=== PATIENT | female | born 1960 | race Caucasian/White ===

== ENCOUNTER 2023-02-18 08:31 | Emergency (ER) | payer BC, SELFPAY ==
--- NOTE | ~2023-02-18 | XR_ITS ---
EXAMINATION: XR hand RT min 3V DATE: 02/18/2023 09:07 INDICATION: Right thumb swelling and redness. TECHNIQUE: 3 views of right hand were obtained. COMPARISON: None. FINDINGS: Bone alignment is normal. No fracture. There is mild osteoarthritis of radioscaphoid joint, first carpometacarpal joint, and many of the metacarpophalangeal joints and interphalangeal joints. IMPRESSION: 1. Mild polyarticular osteoarthritis. Reviewed, dictated and finalized at location A.
[2023-02-18 08:44] VITALS: BP 113/70; PULSE 80; RESP 16; TEMP 37; O2SAT 97
--- NOTE | 2023-02-18 08:56 | ED.SKABFB ---
HPI - Skin/Abscess/Foreign Bdy General Chief complaint: Skin/Abscess/Foreign Body Stated complaint: Pt has swelling and pain in right thumb. Time Seen by Provider: 02/18/23 08:48 Source: patient and RN notes reviewed Mode of arrival: ambulatory Limitations: dementia History of Present Illness HPI narrative: 62-year-old female presents with concern for swelling, redness, pain to the 1st digit of her right hand, extending into her hand. She denies any known injury, trauma. She does not know how the symptoms started. She reports it is painful, it hurts to bend her finger. She reports she is able to bend the finger but it hurts to bend it. She denies fever, aches, chills, sweats. Reports she put Prid on it. She reports she noticed some pus draining out of it. MD complaint: other (Redness) Related Data Allergies Allergy/AdvReac Type Severity Reaction Status Date / Time Penicillins Allergy Unknown Rash Verified 02/18/23 08:44 Review of Systems Review of Systems: CONSTITUTIONAL: Denies malaise, chills, sweats, or fever. EYES: Denies redness, or discharge. ENT: Denies rhinorrhea, congestion, swollen lips, swollen tongue CARDIOVASCULAR: Denies chest pain, palpitations, or edema. RESPIRATORY: Denies cough or dyspnea. GASTROINTESTINAL: Denies abdominal pain, nausea, vomiting SKIN: Reports redness, swelling tenderness to the 1st digit of the right hand, extending into the hand, reports purulent drainage. Denies vesicles, bullae, numbness MUSCULOSKELETAL: Denies joint pain or myalgia. NEUROLOGIC: Denies headache. All systems reviewed & are unremarkable except as noted in HPI and below [facility] Past Medical History Medical History (Updated 02/18/23 @ 09:20 by Theresa Nicole NP) Generalized anxiety disorder GERD (gastroesophageal reflux disease) Insomnia, unspecified Left temporomandibular joint disorder, unspecified left TMJ erosions Major depressive disorder, recurrent, moderate Restless leg syndrome Surgical History Surgical History (Updated 11/14/22 @ 08:01 by Keaton Booth MD) H/O total hysterectomy with bilateral salpingo-oophorectomy (BSO) (1998) History of foot surgery right foot tendon repair History of tonsillectomy and adenoidectomy Social History Social History Smoking status: Never smoker Second hand tobacco smoke exposure: No Alcohol intake: never Substance use: never Substance use type: does not use Living arrangements: with family Occupation/Education: unemployed Gender identity (if verbalized by the patient): Female Sexual Orientation (if Verbalized by the Patient): Straight or Heterosexual Spiritual care concerns: No Agree to blood products: Yes Comments At time of signature, agree with nursing past medical, surgical, social and family history. There is no relevant family history pertinent to the presenting complaint Exam Narrative: GENERAL: Well-appearing, well-nourished, and in no acute distress. HEAD: Normocephalic, atraumatic. EYES: PERRLA, conjunctivae clear ENT: Mucous membranes moist. NECK: Supple. No lymphadenopathy CHEST: Clear to auscultation. No respiratory distress. HEART: Regular rate and rhythm. SKIN: Warm, dry. Erythema, induration, tenderness, warmth noted to the 1st digit of the right hand extending into the hand without fluctuation, center of the cellulitis is darker red without any ecchymosis. No vesicles, bullae, necrosis, crepitus noted. NEURO: Alert and oriented x3. PSYCH: Normal mood and affect Course Course Emergency Course: X-ray does not show any subcutaneous emphysema. Patient is not experiencing any malaise, fever, chills. I discussed with this patient the seriousness of her infection and if it should worsen or not improve in the next 24-36 hour she needs to go to the emergency room. 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
== END 2023-02-18 09:27 | disposition home or self-care (01) ==
PROVIDERS: Emergency Provider Nurse Practitioner; PCP Family Medicine Adolescent Medicine
DX: L03.011 Cellulitis of right finger (principal)
CPT/HCPCS: 73130; 99213; G0463

== ENCOUNTER 2023-02-20 08:26 | Emergency (ER) | payer BC, SELFPAY ==
--- NOTE | ~2023-02-20 | XR_ITS ---
EXAMINATION: XR hand RT min 3V DATE: 02/20/2023 09:07 INDICATION: Right thumb infection. Right thumb redness and swelling. TECHNIQUE: 3 views of right hand were obtained. COMPARISON: Right hand radiographs 02/18/2023 FINDINGS: Bone alignment is normal. No fracture. There is mild osteoarthritis of first carpometacarpa l joint, third metacarpophalangeal joint, and some of the interphalangeal joints. IMPRESSION: 1. No evidence of osteomyelitis. 2. Mild polyarticular osteoarthritis. Reviewed, dictated and finalized at location A.
[2023-02-20 08:29] VITALS: BP 150/89; PULSE 75; RESP 16; TEMP 37; O2SAT 99
--- NOTE | 2023-02-20 08:58 | ED.WOUNDLAC ---
HPI - Wound/Laceration General Chief Complaint: Wound/Laceration Stated Complaint: Abscess R thumb Time Seen by Provider: 02/20/23 08:39 History of Present Illness HPI narrative: 62-year-old female presents with wound to right thumb. Patient states the wound showed up 4 days ago. Patient has had drainage from dorsal aspect of thumb. Patient went to urgent care 2 days ago and prescribed Keflex and doxycycline. Patient denies Fevers, nausea, or any other symptoms. Patient denies history of diabetes. Patient is right-hand dominant. Onset (ago): day(s) Extremity Location: Right: hand Associated symptoms: pain and fever Treatments prior to arrival: other (Keflex and doxycycline) Related Data Allergies Allergy/AdvReac Type Severity Reaction Status Date / Time Penicillins Allergy Unknown Rash Verified 02/20/23 08:41 Review of Systems Review of Systems: A 10 system review of systems was completed on the patient and is negative except for what is stated in the HPI. Nursing and ancillary documentation was reviewed. [facility] Past Medical History Medical History (Updated 02/20/23 @ 09:49 by Raj Winter APRN) Generalized anxiety disorder GERD (gastroesophageal reflux disease) Insomnia, unspecified Left temporomandibular joint disorder, unspecified left TMJ erosions Major depressive disorder, recurrent, moderate Restless leg syndrome Surgical History Surgical History (Updated 11/14/22 @ 08:01 by Keaton Booth MD) H/O total hysterectomy with bilateral salpingo-oophorectomy (BSO) (1998) History of foot surgery right foot tendon repair History of tonsillectomy and adenoidectomy Social History Social History Smoking status: Never smoker Second hand tobacco smoke exposure: No Alcohol intake: never Substance use: never Substance use type: does not use Living arrangements: with family Occupation/Education: unemployed Gender identity (if verbalized by the patient): Female Sexual Orientation (if Verbalized by the Patient): Straight or Heterosexual Spiritual care concerns: No Agree to blood products: Yes Exam Narrative: General appearance: Well-developed, well-nourished Skin: Generalized redness to dorsal aspect of right thumb. No active drainage. Tender to touch. Warm to touch Head: Normocephalic, nontraumatic Eyes: Clear conjunctiva ENT: Oropharynx normal, ears normal, nose normal Neck: Supple, nontender Chest and respiratory: Airway patent, no respiratory distress, no accessory muscle use Heart: Regular rate/rhythm Abdomen: Soft, nontender, no organomegaly, quiet bowel sounds Vascular: Normal peripheral pulses, normal capillary refill. Musculoskeletal: Normal range of motion, nontender back Neurologic: Alert and oriented ?3, [employer] is normal as tested, no gross motor deficit Course Course Emergency Course: Lactate and CBC were negative. X-ray did not show any signs of osteomyelitis. Patient given a dose of Ancef. We will continue cephalexin and Doxy. Patient instructed to follow-up PCP in 2 to 3 days. Vital Signs Vital signs: Vital Signs Temperature 37.0 C 02/20/23 08:29 Pulse Rate 75 02/20/23 08:29 Respiratory Rate 16 02/20/23 08:29 Blood Pressure 150/89 H 02/20/23 08:29 Pulse Oximetry 99 02/20/23 08:29 Temperature 37.0 C 02/20/23 08:29 Pulse Rate 75 02/20/23 08:29 Respiratory Rate 16 02/20/23 08:29 Blood Pressure 150/89 H 02/20/23 08:29 Pulse Oximetry 99 02/20/23 08:29 Procedures Abscess I/D upper extremity: Date of Incision: 02/20/23 Time of Incision: 09:37
[2023-02-20 09:02] LABS: Basophils Absolute Auto 0.1 K/mm3 (0.0-0.1); Basophils Percent Auto 0.9 % (0.2-1.2); Eosinophils Absolute Auto 0.3 K/mm3 (0-0.3); Eosinophils Percent Auto 4.3 % (0-4.4); Hematocrit 39.4 % (37.0-47.0); Hemoglobin 12.3 g/dL (12.0-15.0); Immature Granulocyte Absolute 0.02 K/mm3 (0.00-0.031); Immature Granulocyte Percent A 0.3 % (0-0.5); Lymphocytes Absolute Auto 1.37 K/mm3 (0.9-3.2); Lymphocytes Percent Auto 20.4 % (18.3-44.2); Mean Corpuscular HGB Conc 31.2 g/dl (32-36); Mean Corpuscular Hemoglobin 28.9 pg (26-34); Mean Corpuscular Volume 92.7 fl (80-100); Mean Platelet Volume 10.3 fl (7.4-10.4); Monocytes Absolute Auto 0.4 K/mm3 (0.1-0.6); Monocytes Percent Auto 5.4 % (2.6-8.5); Neutrophils Absolute Auto 4.6 K/mm3 (1.3-6.7); Neutrophils Percent Auto 68.7 % (45.5-73.1); Platelet Count Result 247 k/mm3 (150-375); Red Blood Count 4.25 M/mm3 (4.2-5.4); Red Cell Distribution Width 12.8 % (11.5-14.5); White Blood Count 6.7 K/mm3 (4.5-10.0)
[2023-02-20] MEDS: ceFAZolin 1 GM/NS 50 ML 1 GM/50 ML BAG IVPB (09:07)
[2023-02-20 09:10] LABS: Lactic Acid Reflex 1.3 mmol/L (0.7-2.0)
[2023-02-20 09:12] LABS: Alanine Aminotransferase 16 U/L (6-35); Albumin Level 4.3 g/dL (3.5-5.1); Alkaline Phosphatase 87 U/L (38-126); Anion Gap 5 mmol/L (8-16); Aspartate Amino Transferase 21 U/L (14-36); Bilirubin,Total 0.5 mg/dL (0.2-1.3); Blood Urea Nitrogen 7 mg/dL (7-17); Calcium 9.2 mg/dL (8.4-10.2); Carbon Dioxide 39 mmol/L (22-30); Chloride 97 mmol/L (98-107); Estimated CRCL calculation 81 ml/min; Estimated Glomerular Filt Rate > 60; Glucose 126 mg/dL (65-110); Potassium 3.6 mmol/L (3.4-5.0); Sodium 141 mmol/L (137-145)
[2023-02-20] MEDS: KETOROLAC 30 MG/ML VIAL (*BKC) IV PUSH (10:17)
[2023-02-20 10:27] VITALS: BP 129/78; PULSE 87; RESP 18; O2SAT 98
== END 2023-02-20 10:29 | disposition home or self-care (01) ==
PROVIDERS: Emergency Provider Nurse Practitioner Family; PCP Family Medicine Adolescent Medicine
DX: L02.511 Cutaneous abscess of right hand (principal); K21.9 Gastro-esophageal reflux disease without esophagitis; G25.81 Restless legs syndrome; F33.9 Major depressive disorder, recurrent, unspecified; F41.9 Anxiety disorder, unspecified; Z90.710 Acquired absence of both cervix and uterus
CPT/HCPCS: 26010; 36415; 73130; 80053; 83605; 85025; 87040; 87070; 87205; 96365; 96375; 99284; J0690; J1885

== ENCOUNTER 2023-06-18 12:10 | Emergency (ER) | payer BC, SELFPAY ==
--- NOTE | ~2023-06-18 | XR_ITS ---
EXAMINATION: [id number] INDICATION: Left-sided chest pain TECHNIQUE: A frontal view of the chest and 3 views of the left ribs were obtained. COMPARISON: None. FINDINGS: The lungs are free of acute opacities. No pleural effusion or pneumothorax. There is symmet anjali scarring of the lung apices. The cardiomediastinal silhouette is normal. No displaced rib fractur e is identified. IMPRESSION: 1. No acute cardiopulmonary abnormality or evidence of displaced rib fracture. Reviewed, dictated and finalized at location A.
--- NOTE | ~2023-06-18 | XR_ITS ---
EXAMINATION: XR knee LT min 4V DATE: 06/18/2023 12:42 INDICATION: Left knee pain TECHNIQUE: Four views of the left knee were obtained. COMPARISON: None. FINDINGS: Alignment is normal. No fracture or osteochondral lesion. There is mild tricompartmental os teoarthritis characterized by tiny marginal osteophytes. No joint effusion/synovitis. There is mild anterior soft tissue swelling of the knee. IMPRESSION: 1. No acute osseous abnormality. Reviewed, dictated and finalized at location A.
[2023-06-18 12:21] VITALS: BP 142/73; PULSE 100; RESP 16; TEMP 35.5; O2SAT 100
--- NOTE | 2023-06-18 12:47 | ED.FALL ---
HPI - Fall General Chief Complaint: Fall Stated Complaint: Left Side Body/Knee Pain Source: patient, RN notes reviewed and old records reviewed Mode of arrival: ambulatory Limitations: no limitations History of Present Illness HPI Narrative: 63 year old female who presents to [facility] care with complaints of sustaining a fall last evening hitting her left knee with abrasions noted to anterior knee and also pain to the left side of her chest which she hit on stairs especially when she takes a deep breath. Patient reports that she went to work today and they told her she needed to go home and go get checked out because of her discomfort. Patient reports that she has no shortness of breath or any sternal chest pain or palpitations Patient denies any LOC at time of fall or hitting her head when she fell MD complaint: fall Onset (ago): day(s) (yesterday evening) Fall from: standing Loss of consciousness: none Severity scale (1-10): 5 Quality: aching Related Data Allergies Allergy/AdvReac Type Severity Reaction Status Date / Time Penicillins Allergy Unknown Rash Verified 06/18/23 12:16 Review of Systems Review of Systems: CONSTITUTIONAL: Denies fever, chills, or sweats. EYES: Denies visual changes, redness, or discharge. ENT: Denies rhinorrhea, congestion, sore throat, or otalgia. CARDIOVASCULAR: Denies chest pain, palpitations, or edema. RESPIRATORY: Denies cough or dyspnea. GASTROINTESTINAL: Denies abdominal pain, nausea, vomiting, or diarrhea. GENITOURINARY: Denies dysuria or hematuria. SKIN: Denies rash or itching MUSCULOSKELETAL: Chronic back pain, left knee joint pain, or myalgia.left side of chest along ribs discomfort from fall NEUROLOGIC: Denies headache, numbness, or weakness.denies any LOC at time of fall PSYCHIATRIC:positive for history anxiety or depression. All systems reviewed & are unremarkable except as noted in HPI and below [facility] Past Medical History Medical History (Updated 06/19/23 @ 20:10 by Janice Pemberton NP) Chronic back pain Generalized anxiety disorder GERD (gastroesophageal reflux disease) Insomnia, unspecified Left temporomandibular joint disorder, unspecified left TMJ erosions Major depressive disorder, recurrent, moderate Restless leg syndrome Surgical History Surgical History H/O total hysterectomy with bilateral salpingo-oophorectomy (BSO) (1998) History of foot surgery right foot tendon repair History of tonsillectomy and adenoidectomy Social History Social History (Updated 06/19/23 @ 20:00 by Janice Pemberton NP) Smoking status: Never smoker Second hand tobacco smoke exposure: No Alcohol intake: never Substance use: never Substance use type: opiates Last use: on opiates for chronic back pain Lack of Transportation: No Lack of Food: Never True Current Housing: I Have Housing Concerned About Future Housing: No Difficulty Paying Gas/Electric Bills: No Difficulty Paying for Meds: No Currently Unemployed: No Education: Trade/Vocational Certificate Difficulty w/ Childcare or Family Care: No Living arrangements: with family Occupation/Education: unemployed Gender identity (if verbalized by the patient): Female Sexual Orientation (if Verbalized by the Patient): Straight or Heterosexual Spiritual care concerns: No Agree to blood products: Yes Comments At time of signature, agree with nursing past medical, surgical, social and family history. There is no relevant family history pertinent to the presenting complaint Exam Narrative: GENERAL: Well-appearing, well-nourished, and in no acute distress. HEAD: Normocephalic, atraumatic. EYES: PERRLA and EOMI. ENT: Nares clear, no rhinorrhea or epistaxis. Mucous membranes moist.TM's normal throat pink with no swelling NECK: Supple. no lymphadenopathy CHEST: Clear to auscultation. No respiratory distress.SAO2 100% on room air, tenderness to
[2023-06-18 13:25] VITALS: TEMP 37.9
== END 2023-06-18 13:25 | disposition home or self-care (01) ==
PROVIDERS: Emergency Provider Registered Nurse; PCP Family Medicine Adolescent Medicine
DX: S20.212A Contusion of left front wall of thorax, initial encounter (principal); W19.XXXA Unspecified fall, initial encounter; M25.562 Pain in left knee; K21.9 Gastro-esophageal reflux disease without esophagitis; G25.81 Restless legs syndrome; F41.1 Generalized anxiety disorder
CPT/HCPCS: 71101; 73564; 99214; G0463

== ENCOUNTER 2024-09-19 09:26 | Emergency (ER) | payer OTHER, SELFPAY ==
[2024-09-19 09:33] VITALS: BP 128/66; PULSE 97; RESP 16; TEMP 36.1; O2SAT 100
--- NOTE | 2024-09-19 09:45 | ED.SKABFB ---
HPI - Skin/Abscess/Foreign Bdy General Chief complaint: Skin/Abscess/Foreign Body Stated complaint: left forearm bite Time Seen by Provider: 09/19/24 09:45 Source: patient Mode of arrival: ambulatory Limitations: no limitations History of Present Illness HPI narrative: Pushpa is a 64-year-old female patient presenting to the clinic today with complaints of a boil to the left forearm times 2-3 days. She reports that she tried to drain it with a needle yesterday without success. Area is very tender, red, and swollen. Thinks that she may have had an insect bite to the area. Has had some chills without known fever also is reporting some associated nausea Related Data Allergies Allergy/AdvReac Type Severity Reaction Status Date / Time Penicillins Allergy Unknown Rash Verified 04/30/24 07:51 Review of Systems Review of Systems: Pertinent positives per HPI. Patient denies any fever, rash, headache, visual changes, dizziness, cough, runny nose, sore throat, shortness of breath, chest pain, palpitations, vomiting, diarrhea, constipation, abdominal pain, or any urinary issues. [facility], [facility] Past Medical History Medical History (Updated 09/19/24 @ 10:29 by Ty Nunn APRN) Chronic back pain Generalized anxiety disorder GERD (gastroesophageal reflux disease) Insomnia, unspecified Left temporomandibular joint disorder, unspecified left TMJ erosions Major depressive disorder, recurrent, moderate Restless leg syndrome Surgical History Surgical History H/O total hysterectomy with bilateral salpingo-oophorectomy (BSO) (1998) History of foot surgery right foot tendon repair History of tonsillectomy and adenoidectomy Social History Social History Smoking status: Never smoker Second hand tobacco smoke exposure: No Alcohol intake: never Substance use: never Substance use type: opiates Last use: on opiates for chronic back pain Lack of Transportation: No Lack of Food: Never True Current Housing: I Have Housing Concerned About Future Housing: No Difficulty Paying Gas/Electric Bills: No Difficulty Paying for Meds: No Currently Unemployed: No Education: Trade/Vocational Certificate Difficulty w/ Childcare or Family Care: No Living arrangements: with family Occupation/Education: unemployed Gender identity (if verbalized by the patient): Female Sexual Orientation (if Verbalized by the Patient): Straight or Heterosexual Spiritual care concerns: No Agree to blood products: Yes Comments At the time of my signature, I reviewed and agree with the nursing past medical, surgical, social, and family history. There is no relevant family history pertinent to the patient complaint. Exam Narrative: General: Well-developed, well nourished, in no apparent distress Head: Normocephalic, atraumatic. Cardio: Regular rate and rhythm, s1 and s2 normal, no murmur appreciated. Resp: Clear to auscultation bilaterally, no rhonchi, rales, wheezing or rubs. Integumentary: [place], warm, and dry, abscess with fluctuance and localized cellulitis, erythema,and tenderness to the left forearm- abscess approx 3cm x4cm with 2cm area of redness around.Redness is not circumferential. Course Course Emergency Course: Portions of this record may have been created with voice recognition software. Level of Care: Express Care Visit Vital Signs Vital signs: Vital Signs Temperature 36.1 C L 09/19/24 09:33 Pulse Rate 97 09/19/24 09:33 Respiratory Rate 16 09/19/24 09:33 Blood Pressure 128/66 09/19/24 09:33 Pulse Oximetry 100 09/19/24 09:33 Oxygen Delivery Room Air 09/19/24 09:33 Temperature 36.1 C L 09/19/24 09:33 Pulse Rate 97 09/19/24 09:33 Respiratory Rate 16 09/19/24 09:33 Blood Pressure 128/66 09/19/24 09:33 Pulse Oximetry 100 09/19/24 09:33 Oxygen Delivery Room Air 09/19/24 09:33 Vital signs reviewed Procedures Abscess I/D left forearm: Date of Incision: 09/19/24 Side (if applicable): left Local Anesthetic: lidocaine 1% Amount of anesthesia used (mL): 4 Technique: incised with #11 blade Amount of fluid expressed (mL): 5 Irrigation: No Packing used?: iodoform I&D Results: Pus and Blood Abcess I&D Additional Comments: Verbal consent obtained for incision and drainage. Risk and benefits explained and patient voiced understanding. Area was cleansed with betadine. Area was prepped and draped using sterile technique. 27 gauge needle was then used to instill (4) ml of lidocaine without epi into the abscess edges. Patient tolerated fair and anesthesia was appropriate. An 11 blade scalpel was then used to make a 0.5cm incision over the abscess. White bloody exudate expressed from cavity. Quarter-inch iodoform packing was then inserted into the wound bed. Wound culture obtained and sent to lab. Patient tolerated procedure fair. MDM - Skin/Abscess/Foreign Bdy MDM Narrative Medical decision making narrative: At the time of visit patient is resting comfortably on the exam table. Patient appears to be nontoxic. Procedures: Incision and drainage of the left forearm abscess was performed. Wound culture was obtained. Medications: Zofran 4 mg ODT given in the clinic for nausea Plan: I suspect patient has an abscess to the left forearm. Incision and drainage was performed. Wound culture was obtained and sent to the lab. Prescription for clindamycin and Zofran was sent to the pharmacy. Supportive measures were discussed with the patient and they voiced understanding discharge instructions and agrees to treatment plan. Return precautions reviewed Differential Diagnosis Differential diagnosis: Likely abscess of skin or subcutaneous tissue, viral exanthem, dermatophytosis, urticaria, herpes zoster, allergic reaction to drug, cellulitis, eczema, insect bites, impetigo and contact dermatitis Discharge Plan Discharge Clinical Impression: Abscess Cellulitis Qualifiers: Site of cellulitis: extremity Site of cellulitis of extremity: upper extremity Laterality: left Qualified Code(s): L03.114 - Cellulitis of left upper limb Patient Disposition: Home, Self-Care Condition: Stable Instructions: Antibiotic Form, Cellulitis (ED), Abscess (ED), Abscess Incision and Drainage (DC) Additional Instructions: Incision and drainage was performed to the left forearm today. Iodoform packing was placed into the wound to allow for drainage. Wound culture was sent to the lab. Take clindamycin as prescribed Take Zofran as needed for nausea Take a [id number] probiotic daily-2 hours before or 2 hours after 1 of your doses of clindamycin Increase fluids and stay well hydrated May take Tylenol/Motrin as needed for pain Leave bandage on for 24 hours then may remove and apply band aide covering as needed. Keep wound clean and dry Wash area daily with soap and water Watch for signs and symptoms of worsening infection-increase in redness, streaking, swelling, purulent discharge, or increase in pain. Follow up with your PCP in 2 days for a wound check and packing removal Prescriptions: New clindamycin HCl 300 mg capsule 300 mg PO Q8H 10 Days Qty: 30 0RF ondansetron 4 mg tablet,disintegrating 4 mg PO Q6H PRN (Reason: nausea and vomiting) 3 Days Qty: 12 0RF No Action gabapentin 400 mg capsule 800 mg PO TID Qty: 180 5RF mupirocin 2 % ointment 1 applic topical BID Qty: 15 1RF sulfamethoxazole-trimethoprim [Bactrim DS] 800-160 mg tablet 1 tablet PO BID Qty: 20 0RF diphenoxylate-atropine 2.5-0.025 mg tablet See Rx Instructions PO QID PRN (Reason: diarrhea) Qty: 30 0RF Rx Instructions: Take 1-2 tablets 4 times daily if needed for diarrhea PO four times daily PRN; lorazepam 1 mg tablet 1 mg PO TID PRN (Reason: anxiety) Qty: 90 3RF oxycodone-acetaminophen 10-325 mg tablet 1 tablet PO Q4H PRN (Reason: pain) Qty: 150 0RF Rx Instructions: Can take up to 5 daily Follow-up/Referrals: Keaton Booth MD [Primary Care Provider] - Stand Alone Forms: Work/School Release IP Time of Disposition: 10:30 Quality NIHSS Nursing Documentation ED NIHSS nursing documentation: reviewed/agree
[2024-09-19] MEDS: LIDOCAINE HCL 1% LOCAL INJ 2 ML AMPUL 10 ML INFILTRATE (09:50)
[2024-09-19] MEDS: ONDANSETRON HCL ODT 4 MG TABLET SUBLINGUAL (10:01)
== END 2024-09-19 10:45 | disposition home or self-care (01) ==
PROVIDERS: Emergency Provider Nurse Practitioner Family; PCP Family Medicine Adolescent Medicine
DX: L02.414 Cutaneous abscess of left upper limb (principal); B95.62 Methicillin resistant Staphylococcus aureus infection as the cause of diseases classified elsewhere; B96.4 Proteus (mirabilis) (morganii) as the cause of diseases classified elsewhere; K21.9 Gastro-esophageal reflux disease without esophagitis; G25.81 Restless legs syndrome
CPT/HCPCS: 10061; 87070; 87075; 87077; 87147; 87181; 87186; 87205; 99213; A9270; G0463; J2003

== ENCOUNTER 2024-09-27 05:10 | Emergency (ER) | payer OTHER, SELFPAY ==
[2024-09-27] VITALS (8 sets, daily range): BP systolic 104–137; BP diastolic 55–85; PULSE 84–130; RESP 12–26; TEMP 36.4–36.8; O2SAT 97–100
--- NOTE | ~2024-09-27 | XR_ITS ---
EXAMINATION: XR chest 1V portable DATE: 09/27/2024 06:38 INDICATION: Overdose TECHNIQUE: frontal view of the chest was obtained. COMPARISON: Chest radiograph dated 08/31/2018 FINDINGS: The lungs are clear with no focal airspace opacities, pulmonary edema, pleural effusion or pneumothor ax. The cardiomediastinal silhouette is normal. Visualized bones and soft tissues are unremarkable. IMPRESSION: 1. No acute cardiopulmonary disease. Reviewed, dictated and finalized at location A. [employer]IMMER
--- NOTE | ~2024-09-27 | CT_ITS ---
EXAMINATION: CT brain wo con DATE: 09/27/2024 06:32 INDICATION: Altered mental status TECHNIQUE: Computed tomography (CT) of the head was performed without intravenous contrast. Sagittal and coronal reconstructions were performed. The mA was adjusted according to patient size. Iterative reconstruction technique was employed. The dose-length product was 756.67 mGy-cm. COMPARISON: head CT dated 08/31/2018 FINDINGS: No acute intracranial hemorrhage, acute infarction or abnormal extra axial fluid collection. Ventricl es are normal and symmetric. No mass/mass effect. 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 The orbits, paranasal sinuses and mastoid air c ells are normal. IMPRESSION: 1. No acute intracranial process. 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
--- NOTE | 2024-09-27 05:09 | ECG_ITS ---
Test Date: 2024-09-27 05:09:17 Measurements Intervals [place] Rate: 70 P: 70 AR: 124 QRS: 73 QRSD: 106 T: 28 QT: 413 QTc: 446 Interpretive Statements SINUS RHYTHM NONSPECIFIC T-WAVE ABNORMALITY No previous ECG available for comparison Electronically Signed On 09-27-2024 18:40:23 [employer] by Myrna Yanes M.D.
[2024-09-27 05:33] LABS: Basophils Absolute Auto 0.1 K/mm3 (0.0-0.1); Basophils Percent Auto 0.7 % (0.2-1.2); Eosinophils Absolute Auto 0.1 K/mm3 (0-0.3); Eosinophils Percent Auto 0.9 % (0-4.4); Hematocrit 36.5 % (37.0-47.0); Hemoglobin 11.5 g/dL (12.0-15.0); Immature Granulocyte Absolute 0.03 K/mm3 (0.00-0.031); Immature Granulocyte Percent A 0.4 % (0-0.5); Lymphocytes Absolute Auto 2.41 K/mm3 (0.9-3.2); Lymphocytes Percent Auto 28.5 % (18.3-44.2); Mean Corpuscular HGB Conc 31.5 g/dl (32-36); Mean Corpuscular Hemoglobin 27.6 pg (26-34); Mean Corpuscular Volume 87.5 fl (80-100); Mean Platelet Volume 9.8 fl (7.4-10.4); Monocytes Absolute Auto 0.4 K/mm3 (0.1-0.6); Neutrophils Absolute Auto 5.5 K/mm3 (1.3-6.7); Neutrophils Percent Auto 64.5 % (45.5-73.1); Platelet Count Result 287 k/mm3 (150-375); Red Blood Count 4.17 M/mm3 (4.2-5.4); Red Cell Distribution Width 13.9 % (11.5-14.5); White Blood Count 8.5 K/mm3 (4.5-10.0)
--- NOTE | 2024-09-27 05:35 | ED_ITS ---
HPI - Overdose General Chief Complaint: Overdose Stated Complaint: Fentanyl OD History of Present Illness HPI Narrative: 64-year-old female with a past medical history significant for IV fentanyl abuse, presents via EMS for concerns of a possible overdose on fentanyl. Ambulance was called to scene to find 2 patient's overdosing of fentanyl, this patient was more critical and had agonal respirations and was not alert or oriented. She received a total of 6 mg of intranasal Narcan with improvement in mentation and respirations. Patient is presently alert x1 but combative and agitated. Patient is not able to answer questions appropriately. She is combative but redirectable with verbal and physical stimuli. She is breathing on her own on room air. Noted to be tachycardic and tachypneic but no obvious evidence of trauma or injury. She has scarring along her arms consistent with previous IV drug use sites. Related Data Allergies Allergy/AdvReac Type Severity Reaction Status Date / Time Penicillins Allergy Unknown Rash Verified 04/30/24 07:51 Review of Systems 2 Review of Systems: As reviewed above in HPI [facility] Past Medical History Medical History Chronic back pain Left temporomandibular joint disorder, unspecified left TMJ erosions Restless leg syndrome Generalized anxiety disorder Major depressive disorder, recurrent, moderate GERD (gastroesophageal reflux disease) Insomnia, unspecified Surgical History Surgical History History of foot surgery right foot tendon repair History of tonsillectomy and adenoidectomy H/O total hysterectomy with bilateral salpingo-oophorectomy (BSO) (1998) Social History Social History Smoking status: Never smoker Second hand tobacco smoke exposure: No Alcohol intake: never Substance use: never Substance use type: opiates Last use: on opiates for chronic back pain Lack of Transportation: No Lack of Food: Never True Current Housing: I Have Housing Concerned About Future Housing: No Difficulty Paying Gas/Electric Bills: No Difficulty Paying for Meds: No Currently Unemployed: No Education: Trade/Vocational Certificate Difficulty w/ Childcare or Family Care: No Living arrangements: with family Occupation/Education: unemployed Gender identity (if verbalized by the patient): Female Sexual Orientation (if Verbalized by the Patient): Straight or Heterosexual Spiritual care concerns: No Agree to blood products: Yes Exam 2 Narrative: GENERAL: Agitated and combative but redirectable, alert x1 HEAD: [Normocephalic, atraumatic.] EYES: [PERRLA and EOMI.] ENT: Nares clear, no rhinorrhea or epistaxis. Mucous membranes moist. NECK: Supple. CHEST: [Clear to auscultation. No respiratory distress.] HEART: [Regular rate and rhythm]. No murmur heard. [Normal peripheral pulses.] ABDOMEN: [Soft, nondistended], [nontender], [No rigidity or guarding] EXTREMITIES: Full range of motion of both arms and legs, scarring along the antecubital fossa and signs of potential previous drug abuse sites SKIN: Warm, dry, no rash. NEURO: Moves all extremities but only alert x1, agitated, no focal deficits, redirectable. PSYCH: Agitated and combative, but redirectable Course Vital Signs Vital signs: Vital Signs Pulse Rate 127 H 09/27/24 05:28 Temperature 36.8 C 09/27/24 07:47 Pulse Rate 87 09/27/24 08:01 Respiratory Rate 16 09/27/24 08:01 Blood Pressure 111/78 09/27/24 08:01 Pulse Oximetry 100 09/27/24 08:01 Oxygen Delivery Room Air 09/27/24 07:01 Procedures EJ/Peripheral Line Neck L: EJ/Peripheral Line Date: 09/27/24 EJ/Peripheral Line Time: 05:40 Time Out Performed: No Skin Cleansed in Sterile Fashion: Yes Ultrasound Guided: No Size (gauge): 20 IV Secured and Dressing Applied: Yes Patient Tolerated Procedure: well and no complications MDM - Overdose MDM Narrative Medical decision making narrative: 64-year-old female with a past medical history of chronic substance abuse and IV drug abuse. Presents today after a witnessed IV fentanyl overdose accompanied by her daughter was also patient here for same complaint. Patient was found actually breathing, unconscious but did have a palpable pulse and vital signs. Patient received 6 mg of intranasal Narcan with improvement in her respirations and mentation although she is only alert x1 presently she is able to speak in sentences. Re-directable but very agitated and somewhat combative. Is tachycardic and tachypneic but no hypoxia on room air, no fever or blood pressure concerns. No external evidence of trauma. Given the response to naloxone and her history of IV drug abuse a toxicological screening and workup was ordered this time including alcohol, Tylenol, salicylate levels, urine drug screen, urine toxicological panel, CBC, CMP. EKG and chest x-ray were obtained. Additional naloxone ordered as IV push. An EJ had to be attempted on the left side given patient's difficult vascular access and combativeness, successfully established. Workup showed no leukocytosis or worsening anemia from baseline. Head CT shows no acute intracranial findings. Urinalysis without any infection. Urine drug screen positive for cannabinoids but negative for opiates however fentanyl not be detected on or drug screen. Toxicological panels were negative. Electrolytes, renal and hepatic function panel within normal limits. Patient was re-evaluated frequently. Improved mentation back to baseline and has not required any repeat doses of naloxone while here. Patient was re-evaluated multiple times and had returned to baseline mentation and maintained saturating well on room air without any recurrence or relapse of her opiate overdose toxidrome. Patient was observed here for over 2 hours after the last Narcan administration without any relapse of symptoms. Her workup is largely unremarkable and her symptoms have since resolved. She is stable for discharge at this time. Prescribed a naloxone kit and counseled her on IV drug use and cessation which patient verbalized understanding. Differential Diagnosis Differential diagnosis: Likely poisoning by opiate or related narcotic, drug overdose and accidental drug ingestion Medical Records Attestation: I reviewed the patient's medical records. Lab Data Attestation: I reviewed the patient's lab results. 09/27/24 05:24 09/27/24 05:24 Labs: Lab Results 09/27/24 Range/Units 05:24 WBC 8.5 (4.5-10.0) K/mm3 RBC 4.17 L (4.2-5.4) M/mm3 Hgb 11.5 L (12.0-15.0) g/dL Hct 36.5 L (37.0-47.0) % MCV 87.5 (80-100) fl MCH 27.6 (26-34) pg MCHC 31.5 L (32-36) g/dl RDW 13.9 (11.5-14.5) % Plt Count 287 (150-375) k/mm3 MPV 9.8 (7.4-10.4) fl Immature Gran % (Auto) 0.4 (0-0.5) % Neut % (Auto) 64.5 (45.5-73.1) % Lymph % (Auto) 28.5 (18.3-44.2) % [place] % (Auto) 5.0 (2.6-8.5) % Eos % (Auto) 0.9 (0-4.4) % Baso % (Auto) 0.7 (0.2-1.2) % Lymph # (Auto) 2.41 (0.9-3.2) K/mm3 [place] # (Auto) 0.4 (0.1-0.6) K/mm3 Eos # (Auto) 0.1 (0-0.3) K/mm3 Baso # (Auto) 0.1 (0.0-0.1) K/mm3 Abs Immat Gran (auto) 0.03 (0.00-0.031) K/mm3 Absolute Neuts (auto) 5.5 (1.3-6.7) K/mm3 Absolute Nucleated RBC 0.000 (0.0-0.012) K/mm3 Nucleated RBC % 0.0 (0.0-0.2) % Sodium 136 L (137-145) mmol/L Potassium 3.3 L (3.4-5.0) mmol/L Chloride 99 (98-107) mmol/L Carbon Dioxide 30 (22-30) mmol/L Anion Gap 7 (4-12) mmol/L BUN 7 (7-17) mg/dL Creatinine 0.90 (0.7-1.0) mg/dL Estim Creat Clear Calc Not Reportable Estimated GFR > 60 (59 - ) Glucose 182 H (65-110) mg/dL Calcium 8.9 (8.4-10.2) mg/dL Total Bilirubin 0.7 (0.2-1.3) mg/dL AST 49 H (14-36) U/L ALT 19 (6-35) U/L Alkaline Phosphatase 121 (38-126) U/L Total Protein 8.0 (6.3-8.2) g/dL Albumin 4.2 (3.5-5.1) g/dL TSH 7.700 H (0.465-4.680) uIU/mL Urine Color Yellow (Yellow) Urine Appearance Clear (Clear) Urine pH 6.0 (5.0-9.0) Ur Specific [place] 1.013 (1.001-1.035) Urine Protein 1+ H (Negative) mg/dL Urine Glucose (UA) Negative (Negative) mg/dL Urine Ketones Negative (Negative) mg/dL Ur Blood (Man) Non-hemolyzed trace H (Negative) Urine Nitrate Negative (Negative) Urine Bilirubin Negative (Negative) Urine Urobilinogen 0.2 (<2.0) mg/dL Leukocyte Esterase Rfl Negative (Negative) ERICA/UL Urine RBC 0-2 (0-2) /hpf Urine WBC 0-3 (0-3) /hpf Salicylates < 1.0 L (2-20) mg/dL Urine Opiates Screen Negative (Negative) Urine Methadone Screen Negative (Negative) Acetaminophen < 10 L (10-30) ug/mL Ur Barbiturates Screen Negative (Negative) Ur Phencyclidine Scrn Negative (Negative) Ur Amphetamine Screen Negative (Negative) U Benzodiazepines Scrn Negative (Negative) Urine Cocaine Screen Negative (Negative) U Cannabinoids Screen Positive A (Negative) Ethyl Alcohol < 10 (<10) mg/dL Critical Care Time Critical Care Time Critical Care Time: Yes Total Critical Care Time: 35 Discharge Plan Discharge Clinical Impression: Drug overdose, Poisoning by opiate or related narcotic Patient Disposition: Home, Self-Care Condition: Stable Instructions: Antibiotic Form, Adult Overdose (ED) Additional Instructions: Avoid any further drug use. Follow up with substance abuse resources and PCP. Patient Language: Ghanaian Prescriptions: No Action clindamycin HCl 300 mg capsule 300 mg PO Q8H 10 Days Qty: 30 0RF ondansetron 4 mg tablet,disintegrating 4 mg PO Q6H PRN (Reason: nausea and vomiting) 3 Days Qty: 12 0RF levofloxacin 750 mg tablet 750 mg PO DAILY Qty: 10 0RF Rx Instructions: Stop clindamycin, begin Levaquin gabapentin 400 mg capsule 800 mg PO TID Qty: 180 5RF mupirocin 2 % ointment 1 applic topical BID Qty: 15 1RF sulfamethoxazole-trimethoprim [Bactrim DS] 800-160 mg tablet 1 tablet PO BID Qty: 20 0RF diphenoxylate-atropine 2.5-0.025 mg tablet See Rx Instructions PO QID PRN (Reason: diarrhea) Qty: 30 0RF Rx Instructions: Take 1-2 tablets 4 times daily if needed for diarrhea PO four times daily PRN; lorazepam 1 mg tablet 1 mg PO TID PRN (Reason: anxiety) Qty: 90 3RF oxycodone-acetaminophen 10-325 mg tablet 1 tablet PO Q4H PRN (Reason: pain) Qty: 150 0RF Rx Instructions: Can take up to 5 daily Follow-up/Referrals: Keaton Booth MD [Primary Care Provider] - Time of Disposition: 08:15
[2024-09-27 05:39] LABS: Add Urine Microscopic? YES; Appearance Urine Clear (Clear); Bilirubin Urine Negative (Negative); Blood Urine Non-Hemolyzed Trace (Negative); Color Urine Yellow (Yellow); Glucose Urine UA Negative (Negative); Ketones Urine Negative (Negative); Leukocyte Esterase Ur Negative LEU/UL (Negative); Nitrate Urine Negative (Negative); Protein Urine 1+ mg/dL (Negative); Specific Grav Ur 1.013 (1.001-1.035); Urobilinogen Urine 0.2 mg/dL (<2.0)
[2024-09-27 05:42] LABS: Acetaminophen < 10 ug/mL (10-30); Ethanol < 10 mg/dL (<10); Salicylate < 1.0 mg/dL (2-20)
[2024-09-27 05:44] LABS: Alanine Aminotransferase 19 U/L (6-35); Albumin Level 4.2 g/dL (3.5-5.1); Alkaline Phosphatase 121 U/L (38-126); Anion Gap 7 mmol/L (4-12); Aspartate Amino Transferase 49 U/L (14-36); Bilirubin,Total 0.7 mg/dL (0.2-1.3); Blood Urea Nitrogen 7 mg/dL (7-17); Calcium 8.9 mg/dL (8.4-10.2); Carbon Dioxide 30 mmol/L (22-30); Chloride 99 mmol/L (98-107); Estimated Glomerular Filt Rate > 60; Glucose 182 mg/dL (65-110); Potassium 3.3 mmol/L (3.4-5.0); Sodium 136 mmol/L (137-145)
[2024-09-27 05:49] LABS: Amphetamine Screen Urine Negative (Negative); Barbiturate Screen Urine Negative (Negative); Benzodiazepines Screen Urine Negative (Negative); Cannabinoid Screen Urine Positive (Negative); Cocaine Screen Urine Negative (Negative); Methadone Screen Urine Negative (Negative); Opiate Screen Urine Negative (Negative); Phencyclidine Screen Urine Negative (Negative)
[2024-09-27 05:52] LABS: RBC Urine 0-2 /hpf (0-2); WBC Urine 0-3 /hpf (0-3)
[2024-09-27] MEDS: LACTATED RINGERS 1,000 ML 999 ML IV CONT (06:09)
--- NOTE | 2024-09-27 08:50 | PC.NURSE ---
0715: Assumed care of pt. Pt A/O x4. Noted red swollen area to left upper arm & AC. CMS intact
== END 2024-09-27 08:28 | disposition home or self-care (01) ==
PROVIDERS: Emergency Provider Student in an Organized Health Care Education/Training Program; PCP Family Medicine Adolescent Medicine
DX: T40.411A Poisoning by fentanyl or fentanyl analogs, accidental (unintentional), initial encounter (principal); G25.81 Restless legs syndrome; K21.9 Gastro-esophageal reflux disease without esophagitis; Z90.710 Acquired absence of both cervix and uterus; Z90.79 Acquired absence of other genital organ(s); Z90.722 Acquired absence of ovaries, bilateral
CPT/HCPCS: 36415; 70450; 71045; 80053; 80143; 80179; 80307; 81001; 82077; 84443; 85025; 93005; 96361; 96374; 99284; J7120

== ENCOUNTER 2025-04-16 11:18 | Emergency (ER) | payer BC, SELFPAY ==
--- NOTE | ~2025-04-16 | XR_ITS ---
HISTORY: hand injury- 2nd finger wound with cellulitis COMPARISON: None TECHNIQUE: 3 views of the right hand were performed. FINDINGS: No acute fracture is identified. Gullwing deformity is identified within the proximal interphalangeal joint spaces of the second, thir d, fourth and fifth digits. The remaining joint spaces are otherwise preserved. The carpal arcs are intact. Mild radiocarpal joint space narrowing with sclerosis of the distal radius is present. Periarticular osteopenia is identified consistent with osteoarthritis. Soft tissue swelling of the proximal phalanx of the second digit, consistent with patient's history. No bony abnormality identified in this area. No radiopaque foreign body is identified. IMPRESSION: Soft tissue swelling without bony abnormality in the region of clinical concern. Reviewed, dictated and finalized at location A. IMPRESSION: Soft tissue swelling without bony abnormality in the region of clinical concern .
--- NOTE | 2025-04-16 11:22 | ED.UPPEXIN ---
HPI - Extremity Injury (Upper) General Chief Complaint: Skin/Abscess/Foreign Body Stated Complaint: Right Hand Finger Pain Time Seen by Provider: 04/16/25 11:21 Source: patient Mode of arrival: ambulatory Limitations: no limitations History of Present Illness HPI narrative: Pushpa is a 64-year-old female patient presenting to the clinic today with complaints right open wound/injury. She has right hand swelling, redness, and erythema to her right hand. C/o some chills and sweets but no known fever. Hit her hand between the 2d/3rd knuckle on the counter 3 weeks ago. Noticed wound /swelling to the hand 3 days ago. Was in garage and was getting out a cat carrier. When they took cat into vet the found a spider in the cat carrier. Tetanus unk. History IV heroin use. Patient reports she has been clean for 5 months. Patient is not diabetic. History of PCN allergy-rash. Has taken Keflex in the past with no allergic reaction. Related Data Home Medications ?Medication ?Instructions ?Recorded ?Confirmed ?Last Taken ?Type bupropion HCl 150 mg 24 hr tablet, 150 mg PO 04/09/25 04/09/25 Unknown History extended release gabapentin 400 mg capsule 400 mg PO 04/09/25 04/09/25 Unknown History hydroxyzine pamoate 25 mg capsule 25 mg PO 04/09/25 04/09/25 Unknown History prazosin 1 mg capsule 1 mg PO 04/09/25 04/09/25 Unknown History quetiapine 200 mg tablet 200 mg PO 04/09/25 04/09/25 Unknown History sertraline 100 mg tablet 100 mg PO 04/09/25 04/09/25 Unknown History sertraline 50 mg tablet 50 mg PO 04/09/25 04/09/25 Unknown History Allergies Allergy/AdvReac Type Severity Reaction Status Date / Time Penicillins Allergy Unknown Rash Verified 04/16/25 11:35 Review of Systems Review of Systems: Pertinent positives per HPI. Patient denies any fever, headache, visual changes, dizziness, cough, runny nose, sore throat, shortness of breath, chest pain, palpitations, nausea, vomiting, diarrhea, constipation, abdominal pain, or any urinary issues. [facility] Past Medical History Medical History Chronic back pain Left temporomandibular joint disorder, unspecified left TMJ erosions Restless leg syndrome Generalized anxiety disorder Major depressive disorder, recurrent, moderate GERD (gastroesophageal reflux disease) Insomnia, unspecified Surgical History Surgical History History of foot surgery right foot tendon repair History of tonsillectomy and adenoidectomy H/O total hysterectomy with bilateral salpingo-oophorectomy (BSO) (1998) Social History Social History Smoking status: Never smoker Second hand tobacco smoke exposure: No Alcohol intake: never Substance use: never Substance use type: heroin and opiates Last use: on opiates for chronic back pain Lack of Transportation: No Lack of Food: Never True Current Housing: I Have Housing Concerned About Future Housing: No Difficulty Paying Gas/Electric Bills: No Difficulty Paying for Meds: No Currently Unemployed: No Education: Trade/Vocational Certificate Difficulty w/ Childcare or Family Care: No Living arrangements: with family Occupation/Education: unemployed Gender identity (if verbalized by the patient): Female Sexual Orientation (if Verbalized by the Patient): Straight or Heterosexual Spiritual care concerns: No Agree to blood products: Yes Comments At the time of my signature, I reviewed and agree with the nursing past medical, surgical, social, and family history. There is no relevant family history pertinent to the patient complaint. Exam Narrative: General: Well-developed, well nourished, in no apparent distress Head: Normocephalic, atraumatic. Cardio: Regular rate and rhythm, s1 and s2 normal, no murmur appreciated. Resp: Clear to auscultation bilaterally, no rhonchi, rales, wheezing or rubs. Musculoskeletal: No deformity, tender to palpation over the knuckles of the 2nd and 3rd finger, grossly normal range of motion, muscle strength strong and equal, peripheral pulse strong, no edema, no cyanosis, normal gait and station Integumentary: [place], warm, and dry, open wound with clear bloody discharge to the dorsal lateral 2nd finger with swelling, redness, erythema to the right 2nd finger extending into the hand. Course Course Emergency Course: Portions of this record may have been created with voice recognition software. Level of Care: Express Care Visit Vital Signs Vital signs: Vital Signs Temperature 36.6 C 04/16/25 11:32 Pulse Rate 86 04/16/25 11:32 Respiratory Rate 18 04/16/25 11:32 Blood Pressure 121/70 04/16/25 11:32 Pulse Oximetry 99 04/16/25 11:32 Oxygen Delivery Room Air 04/16/25 11:32 Temperature 36.6 C 04/16/25 11:32 Pulse Rate 86 04/16/25 11:32 Respiratory Rate 18 04/16/25 11:32 Blood Pressure 121/70 04/16/25 11:32 Pulse Oximetry 99 04/16/25 11:32 Oxygen Delivery Room Air 04/16/25 11:32 Vital signs reviewed MDM - Extremity Injury (Upper) MDM Narrative Medical decision making narrative: At the time of visit patient is resting comfortably on the exam table. Patient appears to be nontoxic. Medications: Rocephin 1 g IM given in the clinic today, Tdap 0.5 mL IM given in the clinic today Diagnostics: Right hand x-ray was performed and negative in the clinic for any sign of fracture or malalignment. Plan: I suspect patient has an open wound with cellulitis to the right index finger/hand. Wound is not currently draining. Patient denies heroin use/injection to the right hand. States she has been clean for 5 months. I suspect that this may been caused by a spider bite. Prescription for Bactrim and Keflex was sent to the pharmacy Supportive measures were discussed with the patient and they voiced understanding discharge instructions and agrees to treatment plan. Return precautions reviewed Differential Diagnosis Differential diagnosis: Likely fracture of hand and other (Wound infection, soft tissue swelling, cellulitis) Discharge Plan Discharge Clinical Impression: Cellulitis of finger of right hand, Cellulitis of hand, right Patient Disposition: Home Condition: Stable Instructions: Antibiotic Form, Wound Infection (ED), Cellulitis (ED) Additional Instructions: Right hand x-ray was negative for any sign of fracture or malalignment. Does show soft tissue swelling Rocephin 1 g IM given in the clinic today Take cephalexin and Bactrim as prescribed Increase fluids and stay well hydrated Keep right hand elevated May take Tylenol/Motrin as needed for pain Keep wound clean and dry Change dressing at least once daily-may change more often if soiled Watch for signs and symptoms of worsening infection-increase redness, streaking, increase swelling, purulent discharge, or increase in pain. Follow up with your PCP in 2 days for wound check Patient Language: Lao Prescriptions: New sulfamethoxazole-trimethoprim [Bactrim DS] 800-160 mg tablet 1 tablet PO Q12H 10 Days Qty: 20 0RF cephalexin 500 mg tablet 500 mg PO Q8H 10 Days Qty: 30 0RF No Action fluticasone propionate 50 mcg/actuation spray,suspension 1 spray intranasal DAILY Qty: 16 1RF Rx Instructions: administer into each nostril albuterol sulfate [Ventolin HFA] 90 mcg/actuation HFA aerosol inhaler 2 inh inhalation Q4H PRN (Reason: shortness of breath or wheezing) Qty: 6.7 0RF loratadine 10 mg tablet 10 mg PO DAILY Qty: 30 0RF gabapentin 400 mg capsule 400 mg PO bupropion HCl 150 mg tablet extended release 24 hr 150 mg PO hydroxyzine pamoate 25 mg capsule 25 mg PO sertraline 50 mg tablet 50 mg PO quetiapine 200 mg tablet 200 mg PO sertraline 100 mg tablet 100 mg PO prazosin 1 mg capsule 1 mg PO lorazepam 1 mg tablet 1 mg PO TID PRN (Reason: anxiety) Qty: 90 1RF mecobalamin (vitamin B12) [B12 Active] 1,000 mcg tablet,chewable 1,000 mcg PO DAILY Qty: 90 3RF prochlorperazine maleate 5 mg tablet 5 mg PO BID PRN (Reason: nausea and vomiting) Qty: 30 1RF diphenoxylate-atropine 2.5-0.025 mg tablet See Rx Instructions PO QID PRN (Reason: diarrhea) Qty: 30 0RF Rx Instructions: Take 1-2 tablets 4 times daily if needed for diarrhea PO four times daily PRN; oxycodone-acetaminophen 10-325 mg tablet 1 tablet PO Q8H PRN (Reason: pain) 14 Days Qty: 42 0RF Rx Instructions: Can take up to 3 daily Follow-up/Referrals: Keaton Booth MD [Primary Care Provider] - Time of Disposition: 12:11 Quality NIHSS Nursing Documentation ED NIHSS nursing documentation: reviewed/agree
[2025-04-16 11:32] VITALS: BP 121/70; PULSE 86; RESP 18; TEMP 36.6; O2SAT 99
[2025-04-16] MEDS: cefTRIAXone 1 GM, LIDOCAINE 1% LOCAL INJ 2.1 ML IM (11:56)
[2025-04-16] MEDS: TETANUS,DIPHTHERIA,AC PERTUSSIS ADULT (0.5 ML) BOOSTRIX IM (11:58)
== END 2025-04-16 12:18 | disposition home or self-care (01) ==
PROVIDERS: Emergency Provider Nurse Practitioner Family; PCP Family Medicine Adolescent Medicine
DX: L03.011 Cellulitis of right finger (principal); L03.113 Cellulitis of right upper limb; Z23 Encounter for immunization; K21.9 Gastro-esophageal reflux disease without esophagitis; G25.81 Restless legs syndrome; F41.9 Anxiety disorder, unspecified; F33.9 Major depressive disorder, recurrent, unspecified
CPT/HCPCS: 73130; 90471; 90715; 99213; G0463; J0696; J2003

== ENCOUNTER 2025-06-02 11:28 | Outpatient (CLI) | payer BC, SELFPAY ==
--- NOTE | ~2025-06-02 | XR_ITS ---
EXAM/ PROCEDURE: XR lumbar spine 6V w bending - 06/02/2025 11:50 CDT HISTORY: 65 years old Female with M47.816 - Spondylosis without myelopathy or radiculopathy... COMPARISON: None available TECHNIQUE: Three view(s) FINDINGS/ IMPRESSION: There are no fractures or dislocations.Intervertebral disc space narrowing at L4-5 and L5-S1. Multi l evel osteophyte formation. Reviewed, dictated and finalized at location A.
--- NOTE | ~2025-06-02 | XR_ITS ---
EXAM/ PROCEDURE: XR sacrum coccyx min 2V - 06/02/2025 11:50 CDT HISTORY: 65 years old Female with M46.1 - Sacroiliitis, not elsewhere classified COMPARISON: None available TECHNIQUE: Three view(s) FINDINGS/ IMPRESSION: There are no fractures or dislocations.Joint space narrowing, subchondral sclerosis, subchondral cyst formation and osteophyte formation, compatible with [id number] osteoarthritis. Reviewed, dictated and finalized at location A.
--- OUTSIDE RECORDS SUMMARY | 2025-06-02 12:59 | XMS_ITS | Encounter Summary ---
Author Organization [facility] Healthcare Address [address] [place] [address] Care Team Providers Care Performance Tester Name Role Phone Keaton Booth MD Primary Care Prov ider Encounter Details Date Type Department Care Team (Late st Contact Info) Description 1960 Orders Only [facility] [place] Health Information Management [address] [place] [id number] Scanning, Provider Social History Tobacco Use Types Packs/Day Years Used Date Smoking Tobacco: Never Assessed Comments Unknown Sex and Gender Information Value Date Recorded Sex Assigned at Not on file 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 Gender Identity Not on file Sexual Orientation Not on file documented as of this encounter Plan of Treatment Not on file documented as of this encounter Procedures Procedure Name Priority Date/Time Associated Diagnosis Comments SCAN - RADIOLOGY/IMAGING 1960 documented in this encounter Results * SCAN - RADIOLOGY/IMAGING (1960) Anatomical Region Laterality Modality Other us Provider Scanning Final Result documented in this encounter Visit Diagnoses Not on filedocumented in this encounter Care Teams Performance Tester Relationship Specialty Start Date End Date Keaton Booth MD [address] [place] [address] PCP - General 08/31/17 documented as of this encounter
--- OUTSIDE RECORDS SUMMARY | 2025-06-02 12:59 | XMS_ITS | Patient Health Record ---
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 Apprentice Photoengraving Name Role Phone Ann Flores Primary Care Provider Hebert Shaw Unavailable [phone] Martinez Rapp Unavailable [phone] Laure Sarmiento Unavailable [phone] Nyasia Steele Unavailable Wendy Hartman Unavailable [phone] Beronica Perkins Unavailable [phone] Pari Souza Unavailable [phone] Allergies Allergen (clinical drug ingredient) Drug/Non Drug Allergy documented on EMR Reaction Allergy Type Onset Date Status Penicillin anaphylaxis Drug Allergy Acti ve Results Component Value Reference Range Notes 12 Panel Urine Drug Screen Reviewed date:12/12/2024 09:05:47 AM Interpretation: Performing Lab: Notes/Report: THC POS MICHELA neg MOP (OPI) neg AMP neg MET neg BAR neg BZO POS MDMA neg MTD neg OXY neg PCP neg BUP neg 12 Panel Urine Drug Screen Reviewed date:12/18/2024 02:47:13 PM Interpretation: Performing Lab: Notes/Report: THC POS MICHELA neg MOP (OPI) neg AMP neg MET neg BAR neg BZO neg MDMA neg MTD neg OXY neg PCP neg BUP POS 12 Panel Urine Drug Screen Reviewed date:01/01/2025 01:53:49 PM Interpretation: Performing Lab: Notes/Report: THC POS MICHELA neg MOP (OPI) neg AMP neg MET neg BAR neg BZO POS MDMA neg MTD neg OXY neg PCP neg BUP POS 12 Panel Urine Drug Screen Reviewed date:03/04/2025 01:12:42 PM Interpretation: Performing Lab: Notes/Report: THC POS MICHELA neg MOP (OPI) neg AMP neg MET neg BAR neg BZO neg MDMA neg MTD neg OXY neg PCP neg BUP POS 12 Panel Urine Drug Screen Reviewed date:02/19/2025 10:09:19 AM Interpretation: Performing Lab: Notes/Report: THC POS MICHELA neg MOP (OPI) neg AMP neg MET neg BAR neg BZO neg MDMA neg MTD neg OXY neg PCP neg BUP POS Comprehensive Drug Analysis, Urine Reviewed date:03/03/2025 08:35:18 AM Interpretation: Performing Lab:[facility], [address] [place] [address], Phone - [phone], Director - Rolando Notes/Report: ToxAssure, ToxAssure FLEX or MAT drug testing: -Technical component - Data analysis performed at [address], [address]. [phone]. Compliance Officer Tracey Sellers MD Summary Report (Summary) FINAL COMPREHENSIVE DRUG ANALYSIS,UR Test Result Flag Units Drug Present Carboxy-THC 165 ng/mg creat Carboxy-THC is a metabolite of tetrahydrocannabinol (THC). Source of THC is most commonly herbal marijuana or marijuana-based products, but THC is also present in a scheduled prescription medication. Trace amounts of THC can be present in hemp and cannabidiol (CBD) products. This test is not intended to distinguish between tudlp-3-asprlzrxyhsausahbrkz, the predominant form of THC in most herbal or marijuana-based products, and hjgvp-6-yzthcccyywvjthtcapdn. Buprenorphine 255 ng/mg creat Norbuprenorphine 353 ng/mg creat Source of buprenorphine is a scheduled prescription medication. Norbuprenorphine is an expected metabolite of buprenorphine. Cyclobenzaprine PRESENT Desmethylcyclobenzaprine PRESENT Desmethylcyclobenzaprine is an expected metabolite of cyclobenzaprine. Sertraline PRESENT Desmethylsertraline PRESENT Desmethylsertraline is an expected metabolite of sertraline. Quetiapine PRESENT Ibuprofen PRESENT Hydroxyzine PRESENT Test Result Flag Units Ref Range Creatinine 132 mg/dL >=20 For clinical consultation, please call . PDF . 12 Panel Urine Drug Screen Reviewed date:01/16/2025 03:14:36 PM Interpretation: Performing Lab: Notes/Report: THC POS MICHELA neg MOP (OPI) neg AMP neg MET neg BAR neg BZO neg MDMA neg MTD neg OXY neg PCP neg BUP POS PDF Report Reviewed date:03/03/2025 08:35:18 AM Interpretation: Performing Lab:[facility], [address] [facility], Phone - [phone], Director - Rolando Notes/Report: ToxAssure, ToxAssure FLEX or MAT drug testing: -Technical component - Data analysis performed at [facility], [address] [place] [address], [phone]. [phone]. Compliance Officer Tracey Sellers MD PDF Report1 [facility] Reason For Referral Reason OUD, high PHQ, refer red to psych, as well. Diagnosis 1 Opioid use disorder (F11.99) Referral Organization [facility] Referring Provider First Name Martinez Referring Provider Last Name Dionte Referring Provider [facility] jocelynn Referred Provider [facility] Clinical Notes Kinga Moses 12/12/2024 02:58:53 PM >HN called the client and left a VM regarding setting up therapy. HN waiting on the client to call back.Josué Kristina L 12/20/2024 10:43:42 AM >HN called the client to follow up to see when her therapy appointment is scheduled. HN left a message for client to update the HN on when her therapy appointment is.Josué Kristina L 12/26/2024 11:01:12 AM >HN looked in TIER to see if the client had an appt scheduled for therapy. No appt showing. HN left a VM asking the client to call back with information about her scheduling her appt for therapy, can close out on 01-06-25 referral letter sent to client on 12-26-24. 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 Diagnosis 1 Opioid use disorder (F11.99) Diagnosis 2 MDD (major depressiv e disorder) (F32.9) Diagnosis 3 MIKE (generalized anx iety disorder) (F41.1) Referral Organization [facility] Referring Provider First Name Ann Referring Provider Last Name Sandra [facility] Referred Provider [facility] General Notes Ann Flores 01:55:17 PM >Client doesn't have reliable transportation, but is interested in having telehealth for therapy, and having a peer finish specialist that she can talk to on phone or who can come to see her at her home if possible. Thanks. Clinical Notes Pari Souza 10:29:24 AM >Sent message to hotel service supervisor of ACT programming to see if peer recovery coaches can go to client homes for visits/treatment plan as primary method of contact. Will await response.Harley Michelle R 12/31/2024 11:46:34 AM >Call to client to discuss referral and availability of peer recovery coaches/therapy. No answer, LVM requesting call back.Harley Michelle R 01/07/2025 10:49:23 AM >Call to client, no answer, LVM. Client calls back quickly and this clinician describes nature of call. Client states she has all the information regarding the therapy program at [place] and peer recovery coaches and is thinking about enrolling at this time. Please see other note for more information. Referral Priority Routine Reason Peer Recovery Specia list - Opioid Use Disorder Diagnosis 1 Opioid use disorder (F11.99) Referral Organization [facility] Referring Provider First Name Ann Referring Provider Last Name Soniamo Referring Provider Speciality Psychiatry Referred Provider [facility] Clinical Notes Kinga Moses 05/22/2025 10:31:04 AM >email sent to the recovery team. HN asking if the recovery team could reach out to the client to assist with getting the client enrolled with a coach driver. Referral Priority Routine Reason [facility] Diagnosis 1 MDD (major depressiv e disorder) (F32.9) Diagnosis 2 MIKE (generalized anx iety disorder) (F41.1) Referral Organization [facility] Referring Provider First Name Ann Referring Provider Last Name Sandra Referring Provider Speciality Psychiatry Referred Provider [facility] Clinical Notes Kinga Moses 05/22/2025 10:40:01 AM >HN called the client to inform her about the email asking for a coach driver. HN also working on the referral for therapy. HN called the client at 10:40, HN provided the client with the number to [place] to complete the intake for therapy and to get their first patient appointment set up. Client stated she was going to call on 05-22-25 to complete the enrollment process. HN also explained the same directions to Anni Phillips Referral Priority Routine Medications Medication SIG (Take, Route, Frequency, Duration) Notes Start Date End Date Status Sertraline HCl 100 MG 2 tablets (200 mg) Orally Once a day; Duration: 30 days Active hydrOXYzine Pamoate 25 MG 1 - 2 capsules up to 3 times a day as needed for anxiety (max 100 mg/day) Orally Once a day; Duration: 30 days Active QUEtiapine Fumarate 200 MG 1 tablet Orally Once a day; Duration: 30 days As needed Active oxyCODONE-Acetaminop hen 10-325 MG 1 tablet as needed Orally 4 times a day prescribed by non-[place] provider Active LORazepam 1 MG 1 tablet at bedtime as needed Orally 3 times a day As needed prescribed by non-[place] provider Active Prazosin HCl 1 MG 1 capsule at bedtime Orally Once a day; Duration: 30 days Active buPROPion HCl ER (XL) 150 MG 1 tablet in the morning Orally Once a day; Duration: 30 days Active Social History Tobacco Use: Social History Observation Description Date Details (start date - stop date) Never Smoker NA - NA Sex Assigned At : Social History Observation Description Sex Assigned At Female PRAPARE Question Answer Notes Date Completed/Updated: 12/12/2024 What is your current housing situation? I do not have housing (staying with others, in a hotel, in a prison, living outside on the street, on a beach, or in a park) Are you worried about losing your housing? Yes What is the highest level of school that you have finished? More than high school In the past year, have you o r any family members you live with been unable to get any of the following when it was really needed? Check all that apply Food Has lack of transportation k ept you from medical appointments, meetings, work or from getting things needed for daily living? No How often do you see or talk to people that you care about and feel close to? (For example: talking to friends on the phone, visiting friends or family, going to adventism or club meetings) Less than once a week How stressed are you? Stress is when someone feels tense, nervous, anxious, or can\t sleep at night because their mind is troubled Very much In the past year have you sp ent more than 2 nights in a row in a [place], alf, fci center, or juvenile correctional facility? Yes Do you feel physically and e motionally safe where you currently live? Unsure In the past year, have you b een afraid of your partner or ex-partner? No PRAPARE Score: 8 Tobacco Control (Standard) Question Answer Notes Tobacco use: Nonsmoker Section Notes: - - - - - - - - - - - ADDITIONAL SOCIAL HISTORY 12/16/2024: - - - - - - - - - - - PERSONAL BACKGROUND HISTORY Describe childhood- Mom and Dad fought all of the time, grew up with 6 siblings. Abuse/Trauma- None Education- Some college, worked on [employer] degree 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[email or web address], [employer], 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 Legal History- Hx of drug-related charges Spiritual Affiliation- Roman Catholic Other Social History - Currently living with ex- and 2 adult daughters (in their early 40s). Was living with in a small, efficiency apartment with daughters and they were all abusing fentanyl. Both daughters have health complications related to drug use, one more serious than the other (malnutrition, infected skin wounds, leg wounds). - - - - - - - - - - - ALCOHOL/DRUG HISTORY Caffeine - None Alcohol - None Marijuana - Occasional use Cocaine - Remote Hx Heroin - Heroin prior to fentanyl Fentanyl - Used last 2 years, last use beginning of November 2024 Meth - None Other Illicit Drugs - None OTC/Rx Drugs - None - - - - - - - - - - - PAST PSYCHIATRIC HISTORY Past Psychiatrist or Therapist - Not in a long time Psychiatric Diagnosis(es) - Depression, anxiety Past Psychiatric Medications - Lorazepam-took 3 at once Inpt Psych Hospitalizations - [facility] November 2024 for benzo abuse for 8 days Suicidal Ideation Hx - None Suicide Attempt(s) - None Homicidal Ideation - None Self-Injury/High Risk Bx - None - - - - - - - - - - - FAMILY PSYCHIATRIC HISTORY Suicides or Attempts - None Alcohol/Drug Use - Both daughters - opioid use disorder Disorders - None that she is aware - - - - - - - - - - - - - - - - - - - - - - ADDITIONAL SOCIAL HISTORY 12/16/2024: - - - - - - - - - - - PERSONAL BACKGROUND HISTORY Describe childhood- Mom and Dad fought all of the time, grew up with 6 siblings. Abuse/Trauma- None Education- Some college, worked on [employer] degree 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[employer], 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 Legal History- Hx of drug-related charges Spiritual Affiliation- Roman Catholic Other Social History - Currently living with ex- and 2 adult daughters (in their early 40s). Was living with in a small, efficiency apartment with daughters and they were all abusing fentanyl. Both daughters have health complications related to drug use, one more serious than the other (malnutrition, infected skin wounds, leg wounds). - - - - - - - - - - - ALCOHOL/DRUG HISTORY Caffeine - None Alcohol - None Marijuana - Occasional use Cocaine - Remote Hx Heroin - Heroin prior to fentanyl Fentanyl - Used last 2 years, last use beginning of November 2024 Meth - None Other Illicit Drugs - None OTC/Rx Drugs - None - - - - - - - - - - - PAST PSYCHIATRIC HISTORY Past Psychiatrist or Therapist - Not in a long time Psychiatric Diagnosis(es) - Depression, anxiety Past Psychiatric Medications - Lorazepam-took 3 at once In Psych Hospitalizations - [facility] November 2024 for benzo abuse for 8 days Suicidal Ideation Hx - None Suicide Attempt(s) - None Homicidal Ideation - None Self-Injury/High Risk Bx - None - - - - - - - - - - - FAMILY PSYCHIATRIC HISTORY Suicides or Attempts - None Alcohol/Drug Use - Both daughters - opioid use disorder Disorders - None that she is aware - - - - - - - - - - - - - - - - - - - - - - ADDITIONAL SOCIAL HISTORY 12/16/2024: - - - - - - - - - - - PERSONAL BACKGROUND HISTORY Describe childhood- Mom and Dad fought all of the time, grew up with 6 siblings. 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 Was living with in a small, efficiency apartment with daughters and they were all abusing fentanyl. Both daughters have health complications related to drug use, one more serious than the other (malnutrition, infected skin wounds, leg wounds). - - - - - - - - - - - ALCOHOL/DRUG HISTORY Caffeine - None Alcohol - None Marijuana - Occasional use Cocaine - Remote Hx Heroin - Heroin prior to fentanyl Fentanyl - Used last 2 years, last use beginning of November 2024 Meth - None Other Illicit Drugs - None OTC/Rx Drugs - None - - - - - - - - - - - PAST PSYCHIATRIC HISTORY Past Psychiatrist or Therapist - Not in a long time Psychiatric Diagnosis(es) - Depression, anxiety Past Psychiatric Medications - Lorazepam-took 3 at once Inpt Psych Hospitalizations - [facility] November 2024 for benzo abuse for 8 days Suicidal Ideation Hx - None Suicide Attempt(s) - None Homicidal Ideation - None Self-Injury/High Risk Bx - None - - - - - - - - - - - FAMILY PSYCHIATRIC HISTORY Suicides or Attempts - None Alcohol/Drug Use - Both daughters - opioid use disorder Disorders - None that she is aware - - - - - - - - - - - - - - - - - - - - - - ADDITIONAL SOCIAL HISTORY 12/16/2024: - - - - - - - - - - - PERSONAL BACKGROUND HISTORY Describe childhood- Mom and Dad fought all of the time, grew up with 6 siblings. Abuse/Trauma- None Education- Some college, worked on [employer] degree 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[employer], 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 Legal History- Hx of drug-related charges Spiritual Affiliation- Roman Catholic Other Social History - Currently living with ex- and 2 adult daughters (in their early 40s). Was living with in a small, efficiency apartment with daughters and they were all abusing fentanyl. Both daughters have health complications related to drug use, one more serious than the other (malnutrition, infected skin wounds, leg wounds). - - - - - - - - - - - ALCOHOL/DRUG HISTORY Caffeine - None Alcohol - None Marijuana - Occasional use Cocaine - Remote Hx Heroin - Heroin prior to fentanyl Fentanyl - Used last 2 years, last use beginning of November 2024 Meth - None Other Illicit Drugs - None OTC/Rx Drugs - None - - - - - - - - - - - PAST PSYCHIATRIC HISTORY Past Psychiatrist or Therapist - Not in a long time Psychiatric Diagnosis(es) - Depression, anxiety Past Psychiatric Medications - Lorazepam-took 3 at once Inpt Psych Hospitalizations - [facility] November 2024 for benzo abuse for 8 days Suicidal Ideation Hx - None Suicide Attempt(s) - None Homicidal Ideation - None Self-Injury/High Risk Bx - None - - - - - - - - - - - FAMILY PSYCHIATRIC HISTORY Suicides or Attempts - None Alcohol/Drug Use - Both daughters - opioid use disorder Disorders - None that she is aware - - - - - - - - - - - - - - - - - - - - - - ADDITIONAL SOCIAL HISTORY 12/16/2024: - - - - - - - - - - - PERSONAL BACKGROUND HISTORY Describe childhood- Mom and Dad fought all of the time, grew up with 6 siblings. Abuse/Trauma- None Education- Some college, worked on [employer] degree 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[employer], 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 Legal History- Hx of drug-related charges Spiritual Affiliation- Roman Catholic Other Social History - Currently living with ex- and 2 adult daughters (in their early 40s). Was living with in a small, efficiency apartment with daughters and they were all abusing fentanyl. Both daughters have health complications related to drug use, one more serious than the other (malnutrition, infected skin wounds, leg wounds). - - - - - - - - - - - ALCOHOL/DRUG HISTORY Caffeine - None Alcohol - None Marijuana - Occasional use Cocaine - Remote Hx Heroin - Heroin prior to fentanyl Fentanyl - Used last 2 years, last use beginning of November 2024 Meth - None Other Illicit Drugs - None OTC/Rx Drugs - None - - - - - - - - - - - PAST PSYCHIATRIC HISTORY Past Psychiatrist or Therapist - Not in a long time Psychiatric Diagnosis(es) - Depression, anxiety Past Psychiatric Medications - Lorazepam-took 3 at once Inpt Psych Hospitalizations - [facility] November 2024 for benzo abuse for 8 days Suicidal Ideation Hx - None Suicide Attempt(s) - None Homicidal Ideation - None Self-Injury/High Risk Bx - None - - - - - - - - - - - FAMILY PSYCHIATRIC HISTORY Suicides or Attempts - None Alcohol/Drug Use - Both daughters - opioid use disorder Disorders - None that she is aware - - - - - - - - - - - - - - - - - - - - - - ADDITIONAL SOCIAL HISTORY 12/16/2024: - - - - - - - - - - - PERSONAL BACKGROUND HISTORY Describe childhood- Mom and Dad fought all of the time, grew up with 6 siblings. 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 Was living with in a small, efficiency apartment with daughters and they were all abusing fentanyl. Both daughters have health complications related to drug use, one more serious than the other (malnutrition, infected skin wounds, leg wounds). - - - - - - - - - - - ALCOHOL/DRUG HISTORY Caffeine - None Alcohol - None Marijuana - Occasional use Cocaine - Remote Hx Heroin - Heroin prior to fentanyl Fentanyl - Used last 2 years, last use beginning of November 2024 Meth - None Other Illicit Drugs - None OTC/Rx Drugs - None - - - - - - - - - - - PAST PSYCHIATRIC HISTORY Past Psychiatrist or Therapist - Not in a long time Psychiatric Diagnosis(es) - Depression, anxiety Past Psychiatric Medications - Lorazepam-took 3 at once In Psych Hospitalizations - [facility] November 2024 for benzo abuse for 8 days Suicidal Ideation Hx - None Suicide Attempt(s) - None Homicidal Ideation - None Self-Injury/High Risk Bx - None - - - - - - - - - - - FAMILY PSYCHIATRIC HISTORY Suicides or Attempts - None Alcohol/Drug Use - Both daughters - opioid use disorder Disorders - None that she is aware - - - - - - - - - - - - - - - - - - - - - - ADDITIONAL SOCIAL HISTORY 12/16/2024: - - - - - - - - - - - PERSONAL BACKGROUND HISTORY Describe childhood- Mom and Dad fought all of the time, grew up with 6 siblings. 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 Was living with in a small, efficiency apartment with daughters and they were all abusing fentanyl. Both daughters have health complications related to drug use, one more serious than the other (malnutrition, infected skin wounds, leg wounds). - - - - - - - - - - - ALCOHOL/DRUG HISTORY Caffeine - None Alcohol - None Marijuana - Occasional use Cocaine - Remote Hx Heroin - Heroin prior to fentanyl Fentanyl - Used last 2 years, last use beginning of November 2024 Meth - None Other Illicit Drugs - None OTC/Rx Drugs - None - - - - - - - - - - - PAST PSYCHIATRIC HISTORY Past Psychiatrist or Therapist - Not in a long time Psychiatric Diagnosis(es) - Depression, anxiety Past Psychiatric Medications - Lorazepam-took 3 at once Inpt Psych Hospitalizations - [facility] November 2024 for benzo abuse for 8 days Suicidal Ideation Hx - None Suicide Attempt(s) - None Homicidal Ideation - None Self-Injury/High Risk Bx - None - - - - - - - - - - - FAMILY PSYCHIATRIC HISTORY Suicides or Attempts - None Alcohol/Drug Use - Both daughters - opioid use disorder Disorders - None that she is aware - - - - - - - - - - - - - - - - - - - - - - ADDITIONAL SOCIAL HISTORY 12/16/2024: - - - - - - - - - - - PERSONAL BACKGROUND HISTORY Describe childhood- Mom and Dad fought all of the time, grew up with 6 siblings. 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 Was living with in a small, efficiency apartment with daughters and they were all abusing fentanyl. Both daughters have health complications related to drug use, one more serious than the other (malnutrition, infected skin wounds, leg wounds). - - - - - - - - - - - ALCOHOL/DRUG HISTORY Caffeine - None Alcohol - None Marijuana - Occasional use Cocaine - Remote Hx Heroin - Heroin prior to fentanyl Fentanyl - Used last 2 years, last use beginning of November 2024 Meth - None Other Illicit Drugs - None OTC/Rx Drugs - None - - - - - - - - - - - PAST PSYCHIATRIC HISTORY Past Psychiatrist or Therapist - Not in a long time Psychiatric Diagnosis(es) - Depression, anxiety Past Psychiatric Medications - Lorazepam-took 3 at once Inpt Psych Hospitalizations - [facility] November 2024 for benzo abuse for 8 days Suicidal Ideation Hx - None Suicide Attempt(s) - None Homicidal Ideation - None Self-Injury/High Risk Bx - None - - - - - - - - - - - FAMILY PSYCHIATRIC HISTORY Suicides or Attempts - None Alcohol/Drug Use - Both daughters - opioid use disorder Disorders - None that she is aware - - - - - - - - - - - - - - - - - - - - - - ADDITIONAL SOCIAL HISTORY 12/16/2024: - - - - - - - - - - - PERSONAL BACKGROUND HISTORY Describe childhood- Mom and Dad fought all of the time, grew up with 6 siblings. 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 Was living with in a small, efficiency apartment with daughters and they were all abusing fentanyl. Both daughters have health complications related to drug use, one more serious than the other (malnutrition, infected skin wounds, leg wounds). - - - - - - - - - - - ALCOHOL/DRUG HISTORY Caffeine - None Alcohol - None Marijuana - Occasional use Cocaine - Remote Hx Heroin - Heroin prior to fentanyl Fentanyl - Used last 2 years, last use beginning of November 2024 Meth - None Other Illicit Drugs - None OTC/Rx Drugs - None - - - - - - - - - - - PAST PSYCHIATRIC HISTORY Past Psychiatrist or Therapist - Not in a long time Psychiatric Diagnosis(es) - Depression, anxiety Past Psychiatric Medications - Lorazepam-took 3 at once Inpt Psych Hospitalizations - [facility] November 2024 for benzo abuse for 8 days Suicidal Ideation Hx - None Suicide Attempt(s) - None Homicidal Ideation - None Self-Injury/High Risk Bx - None - - - - - - - - - - - FAMILY PSYCHIATRIC HISTORY Suicides or Attempts - None Alcohol/Drug Use - Both daughters - opioid use disorder Disorders - None that she is aware - - - - - - - - - - - - - - - - - - - - - - ADDITIONAL SOCIAL HISTORY 12/16/2024: - - - - - - - - - - - PERSONAL BACKGROUND HISTORY Describe childhood- Mom and Dad fought all of the time, grew up with 6 siblings. 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 Was living with in a small, efficiency apartment with daughters and they were all abusing fentanyl. Both daughters have health complications related to drug use, one more serious than the other (malnutrition, infected skin wounds, leg wounds). - - - - - - - - - - - ALCOHOL/DRUG HISTORY Caffeine - None Alcohol - None Marijuana - Occasional use Cocaine - Remote Hx Heroin - Heroin prior to fentanyl Fentanyl - Used last 2 years, last use beginning of November 2024 Meth - None Other Illicit Drugs - None OTC/Rx Drugs - None - - - - - - - - - - - PAST PSYCHIATRIC HISTORY Past Psychiatrist or Therapist - Not in a long time Psychiatric Diagnosis(es) - Depression, anxiety Past Psychiatric Medications - Lorazepam-took 3 at once In Psych Hospitalizations - [facility] November 2024 for benzo abuse for 8 days Suicidal Ideation Hx - None Suicide Attempt(s) - None Homicidal Ideation - None Self-Injury/High Risk Bx - None - - - - - - - - - - - FAMILY PSYCHIATRIC HISTORY Suicides or Attempts - None Alcohol/Drug Use - Both daughters - opioid use disorder Disorders - None that she is aware - - - - - - - - - - - - - - - - - - - - - - ADDITIONAL SOCIAL HISTORY 12/16/2024: - - - - - - - - - - - PERSONAL BACKGROUND HISTORY Describe childhood- Mom and Dad fought all of the time, grew up with 6 siblings. 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 Was living with in a small, efficiency apartment with daughters and they were all abusing fentanyl. Both daughters have health complications related to drug use, one more serious than the other (malnutrition, infected skin wounds, leg wounds). - - - - - - - - - - - ALCOHOL/DRUG HISTORY Caffeine - None Alcohol - None Marijuana - Occasional use Cocaine - Remote Hx Heroin - Heroin prior to fentanyl Fentanyl - Used last 2 years, last use beginning of November 2024 Meth - None Other Illicit Drugs - None OTC/Rx Drugs - None - - - - - - - - - - - PAST PSYCHIATRIC HISTORY Past Psychiatrist or Therapist - Not in a long time Psychiatric Diagnosis(es) - Depression, anxiety Past Psychiatric Medications - Lorazepam-took 3 at once In Psych Hospitalizations - [facility] November 2024 for benzo abuse for 8 days Suicidal Ideation Hx - None Suicide Attempt(s) - None Homicidal Ideation - None Self-Injury/High Risk Bx - None - - - - - - - - - - - FAMILY PSYCHIATRIC HISTORY Suicides or Attempts - None Alcohol/Drug Use - Both daughters - opioid use disorder Disorders - None that she is aware - - - - - - - - - - - - - - - - - - - - - - ADDITIONAL SOCIAL HISTORY 12/16/2024: - - - - - - - - - - - PERSONAL BACKGROUND HISTORY Describe childhood- Mom and Dad fought all of the time, grew up with 6 siblings. 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 Was living with in a small, efficiency apartment with daughters and they were all abusing fentanyl. Both daughters have health complications related to drug use, one more serious than the other (malnutrition, infected skin wounds, leg wounds). - - - - - - - - - - - ALCOHOL/DRUG HISTORY Caffeine - None Alcohol - None Marijuana - Occasional use Cocaine - Remote Hx Heroin - Heroin prior to fentanyl Fentanyl - Used last 2 years, last use beginning of November 2024 Meth - None Other Illicit Drugs - None OTC/Rx Drugs - None - - - - - - - - - - - PAST PSYCHIATRIC HISTORY Past Psychiatrist or Therapist - Not in a long time Psychiatric Diagnosis(es) - Depression, anxiety Past Psychiatric Medications - Lorazepam-took 3 at once Inpt Psych Hospitalizations - [facility] November 2024 for benzo abuse for 8 days Suicidal Ideation Hx - None Suicide Attempt(s) - None Homicidal Ideation - None Self-Injury/High Risk Bx - None - - - - - - - - - - - FAMILY PSYCHIATRIC HISTORY Suicides or Attempts - None Alcohol/Drug Use - Both daughters - opioid use disorder Disorders - None that she is aware - - - - - - - - - - - Problems Problem Type SNOMED Code ICD Code Onset Dates Problem Status W/U Status Risk Notes Problem Tobacco user (751496718) Nicotine dependence, unspecified, uncomplicated (F17.200) Active confirmed Problem Generalized anxiety disorder (28621495) MIKE (generalized anxiety disorder) (F41.1) Active confirmed Problem Sleep disturbance (41445755) Sleep disturbance (G47.9) Active confirmed Problem Overweight (300116345) Over weight (E66.3) Active confirmed Problem Major depressive disorder (692103471) MDD (major depressive disorder) (F32.9) Active confirmed Problem Overweight (125147098) Overweight (BMI 25.0-29.9) (E66.3) Active confirmed Problem Opioid use disorder (0142015734) Opioid use disorder (F11.99) Active confirmed Vital Signs Heart Rate 67 /min 03/27/2025 Respiratory Rate 16 /min 03/27/2025 Blood pressure diastolic 80 mm Hg 03/27/2025 Oximetry 98 % 03/27/2025 Height 66 in 03/27/2025 Blood pressure systolic 116 mm Hg 03/27/2025 Weight 183.6 lbs 03/27/2025 BMI 29.63 kg/m2 03/27/2025 Encounters Encounter Location Date Provider Diagnosis [address] [address] 12/12/2024 Martinez Rapp Opioid use disorder F11.99 [facility] [address] [address] 12/12/2024 Laure Sarmiento [address] [address] 12/16/2024 Ann Flores MDD (major depressive disorder) F32.9 ; MIKE (generalized anxiety disorder) F41.1 ; Sleep disturbance G47.9 ; Opioid use disorder F11.99 and Medication management Z79.[address] [address] 12/18/2024 Wendy Hartman Opioid use disorder F11.99 and Nicotine dependence, unspecified, uncomplicated F17.[address] [address] 01/01/2025 Nyasia Steele Opioid use disorder F11.99 ; Nutritional counseling Z71.3 ; Dietary counseling Z71.3 and Overweight (BMI 25.0-29.9) E66.3 [address] [place] [place] [address] 01/07/2025 Pari Souza MDD (major depressive disorder) F32.9 [facility] [address], [place] [address] 01/16/2025 Hebert Shaw Opioid use disorder F11.99 and Overweight (BMI 25.0-29.9) E66.[address] [address] 01/21/2025 Ann Sabblut MIKE (generalized anxiety disorder) F41.1 ; MDD (major depressive disorder) F32.9 ; Sleep disturbance G47.9 ; Opioid use disorder F11.99 and Medication management Z79.[address] [address] 02/19/2025 Wendy Szlufik Over weight E66.3 and Opioid use disorder F11.[address] [address] 02/25/2025 Ann Sabblut MIKE (generalized anxiety disorder) F41.1 ; MDD (major depressive disorder) F32.9 ; Sleep disturbance G47.9 ; Opioid use disorder F11.99 and Medication management Z79.[address] [address] 03/04/2025 Wendy Szlufik Over weight E66.3 and Opioid use disorder F11.[address] [address] 03/27/2025 Ann Sabblut Over weight E66.3 ; MIKE (generalized anxiety disorder) F41.1 ; MDD (major depressive disorder) F32.9 ; Sleep disturbance G47.9 ; Opioid use disorder F11.99 and Medication management Z79.[address] [address] 04/21/2025 Ann Sabblut Over weight E66.3 ; MIKE (generalized anxiety disorder) F41.1 ; MDD (major depressive disorder) F32.9 ; Sleep disturbance G47.9 ; Opioid use disorder F11.99 and Medication management Z79.[address] [address] 05/21/2025 Ann Sabblut Over weight E66.3 ; MIKE (generalized anxiety disorder) F41.1 ; MDD (major depressive disorder) F32.9 ; Sleep disturbance G47.9 ; Opioid use disorder F11.99 and Medication management Z79.[address] [place] [address] 01/17/2025 Ann Flores MDD (major depressive disorder) F32.9 ; MIKE (generalized anxiety disorder) F41.1 and Sleep disturbance G47.[address] [place] [address] 02/20/2025 Ann Flores MDD (major depressive disorder) F32.9 ; Sleep disturbance G47.9 and MIKE (generalized anxiety disorder) F41.[address] [place] [address] 03/14/[address] [place] [address] 03/17/2025 [address] [facility] [place] [place] [address] 03/18/2025 Wendy [address] [address] [place] [address] 03/19/[address] [place] [address] 03/19/2025 Wendy [place] [place] [address] 03/19/2025 Nyasia Steele [address] [place] [address] 03/19/[address] [place] [address] 03/21/[address] [place] [address] 03/24/[address] [place] [address] 03/26/2025 Ann Flores Assessments Encounter Date Diagnosis (ICD Code) Assessment Notes Treatment Notes Treatment Clinical Notes Section Notes 12/12/2024 Opioid use disorder (ICD-10 - F11.99) 12/16/2024 MIKE (generalized anxiety disorder) (ICD-10 - F41.1) 12/16/2024 MDD (major depressive disorder) (ICD-10 - F32.9) 12/18/2024 Nicotine dependence, unspecified, uncomplicated (ICD-10 - F17.200) 12/18/2024 Opioid use disorder (ICD-10 - F11.99) 01/07/2025 MDD (major depressive disorder) (ICD-10 - F32.9) 01/16/2025 Overweight (BMI 25.0-29.9) (ICD-10 - E66.3) 01/16/2025 Opioid use disorder (ICD-10 - F11.99) 01/01/2025 Nutritional counseling (ICD-10 - Z71.3) 01/01/2025 Opioid use disorder (ICD-10 - F11.99) 01/17/2025 MDD (major depressive disorder) (ICD-10 - F32.9) 01/21/2025 MIKE (generalized anxiety disorder) (ICD-10 - F41.1) 02/19/2025 Over weight (ICD-10 - E66.3) 02/19/2025 Opioid use disorder (ICD-10 - F11.99) 02/20/2025 MDD (major depressive disorder) (ICD-10 - F32.9) 02/25/2025 MIKE (generalized anxiety disorder) (ICD-10 - F41.1) 03/04/2025 Over weight (ICD-10 - E66.3) 03/04/2025 Opioid use disorder (ICD-10 - F11.99) 03/27/2025 Over weight (ICD-10 - E66.3) 04/21/2025 Over weight (ICD-10 - E66.3) 05/21/2025 Over weight (ICD-10 - E66.3) 02/20/2025 Sleep disturbance (ICD-10 - G47.9) 04/21/2025 MIKE (generalized anxiety disorder) (ICD-10 - F41.1) 05/21/2025 MIKE (generalized anxiety disorder) (ICD-10 - F41.1) 03/27/2025 MIKE (generalized anxiety disorder) (ICD-10 - F41.1) [place] client is getting prescribed lorazepam and oxycodone/APAP by Dr. Keaton Booth. Opioid and benzodiazepine use is not reccomended for individuals with substance use disorders. 02/25/2025 MDD (major depressive disorder) (ICD-10 - F32.9) 01/21/2025 MDD (major depressive disorder) (ICD-10 - F32.9) 01/01/2025 Dietary counseling (ICD-10 - Z71.3) 01/17/2025 MIKE (generalized anxiety disorder) (ICD-10 - F41.1) 12/16/2024 Sleep disturbance (ICD-10 - G47.9) 01/01/2025 Overweight (BMI 25.0-29.9) (ICD-10 - E66.3) 12/16/2024 Opioid use disorder (ICD-10 - F11.99) Recommend a combination of 12-step programs, outpatient programs, and psychotherapy to maintain recovery in the outpatient setting. 01/17/2025 Sleep disturbance (ICD-10 - G47.9) 01/21/2025 Sleep disturbance (ICD-10 - G47.9) 02/20/2025 MIKE (generalized anxiety disorder) (ICD-10 - F41.1) 02/25/2025 Sleep disturbance (ICD-10 - G47.9) 05/21/2025 MDD (major depressive disorder) (ICD-10 - F32.9) Starting bupropion XL for depression and to aid in appetite suppression. 04/21/2025 MDD (major depressive disorder) (ICD-10 - F32.9) Starting bupropion XL for depression and to aid in appetite suppression. 03/27/2025 MDD (major depressive disorder) (ICD-10 - F32.9) Starting bupropion XL for depression and to aid in appetite suppression. 05/21/2025 Sleep disturbance (ICD-10 - G47.9) Starting prazosin for nightmares. 04/21/2025 Sleep disturbance (ICD-10 - G47.9) Starting prazosin for nightmares. 02/25/2025 Opioid use disorder (ICD-10 - F11.99) Recommend a combination of 12-step programs, outpatient programs, and psychotherapy to maintain recovery in the outpatient setting. 03/27/2025 Sleep disturbance (ICD-10 - G47.9) Starting prazosin for nightmares. 01/21/2025 Opioid use disorder (ICD-10 - F11.99) Recommend a combination of 12-step programs, outpatient programs, and psychotherapy to maintain recovery in the outpatient setting. 12/16/2024 Medication management (ICD-10 - Z79.899) May self-administer medications or be administered own oral medications per [place] protocols. Provided informed consent with understanding of side effects, adverse effects, risks and benefits as well as alternative treatments as previously discussed and with the above recommended medications & other aspects of the treatment program. Agrees to return sooner if symptoms worsen or suicidal or homicidal ideations occur. 01/21/2025 Medication management (ICD-10 - Z79.899) May self-administer medications or be administered own oral medications per [place] protocols. Provided informed consent with understanding of side effects, adverse effects, risks and benefits as well as alternative treatments as previously discussed and with the above recommended medications & other aspects of the treatment program. Agrees to return sooner if symptoms worsen or suicidal or homicidal ideations occur. 02/25/2025 Medication management (ICD-10 - Z79.899) May self-administer medications or be administered own oral medications per [place] protocols. Provided informed consent with understanding of side effects, adverse effects, risks and benefits as well as alternative treatments as previously discussed and with the above recommended medications & other aspects of the treatment program. Agrees to return sooner if symptoms worsen or suicidal or homicidal ideations occur. 05/21/2025 Opioid use disorder (ICD-10 - F11.99) Recommend a combination of 12-step programs, outpatient programs, and psychotherapy to maintain recovery in the [place]. [place] - client continues to get lorazepam and oxycodone-Acetamin ophen regularly prescribed by Dr. Keaton Booth. Opioid and benzodiazepine use is not recommended for individuals with substance use disorders. 03/27/2025 Opioid use disorder (ICD-10 - F11.99) Recommend a combination of 12-step programs, outpatient programs, and psychotherapy to maintain recovery in the [place]. [place] - client is getting prescribed lorazepam and oxycodone/APAP by Dr. Keaton Booth. Opioid and benzodiazepine use is not reccomended for individuals with substance use disorders. 04/21/2025 Opioid use disorder (ICD-10 - F11.99) Recommend a combination of 12-step programs, outpatient programs, and psychotherapy to maintain recovery in the [place] setting. [place]21[place]2025 - lorazepam filled on 04/03/2025 #90 for 30-day supply, and oxycodone/APAP filled on 04/14/2025 #42 for 14-day supply, both prescribed by Dr. Keaton Booth. Opioid and benzodiazepine use is not recommended for individuals with substance use disorders. 05/21/2025 Medication management (ICD-10 - Z79.899) May self-administer medications or be administered own oral medications per [place] protocols. Provided informed consent with understanding of side effects, adverse effects, risks and benefits as well as alternative treatments as previously discussed and with the above recommended medications & other aspects of the treatment program. Agrees to return sooner if symptoms worsen or suicidal or homicidal ideations occur. 04/21/2025 Medication management (ICD-10 - Z79.899) May self-administer medications or be administered own oral medications per [place] protocols. Provided informed consent with understanding of side effects, adverse effects, risks and benefits as well as alternative treatments as previously discussed and with the above recommended medications & other aspects of the treatment program. Agrees to return sooner if symptoms worsen or suicidal or homicidal ideations occur. 03/27/2025 Medication management (ICD-10 - Z79.899) May self-administer medications or be administered own oral medications per [place] protocols. Provided informed consent with understanding of side effects, adverse effects, risks and benefits as well as alternative treatments as previously discussed and with the above recommended medications & other aspects of the treatment program. Agrees to return sooner if symptoms worsen or suicidal or homicidal ideations occur. 12/12/2024 Other Health Navigator spoke with Jackie to assist in working on building skills to help the consumer gain confidence in their recovery journey. PRAPARE Assessment completed with Jackie. Information for housing was provided to Jackie along with the numbers to call for support. Jackie voiced understanding that she needs to call the county housing lines and attempt to fill out paperwork for both [facility] and will reach out once completed as much as she can or have questions. 12/18/2024 Other Discussed MAR program expectations. It is not appropriate to continue routine use of any opioids while prescribed Suboxone. Notify previous prescriber of Suboxone therapy and do not continue to fill further prescriptions if sent. All treating physicians/provide rs should be made aware of Suboxone use as part of a MAR program. Patient verbalized understanding. Declines referrals today for psych, therapy/counseling , and peer recovery. Patient agrees to take medication as prescribed. Discussed medication side effects, adverse effects, risks, benefits, as well as interactions. Encouraged non-use of opioids and other illicit substances. Has naloxone. Discontinuing buprenorphine increases the risk of overdose upon return to illicit opioid use. Use of alcohol or benzodiazepines with buprenorphine increases the risk of overdose and . Education provided about safe storage of medications. Encouraged participation in recovery groups/counseling services. Contact office with questions or concerns. Patient may self-administe r their own medications or may self-administe r their own oral medications per [place] Protocol. 01/01/2025 Other Patient agrees to take medication as prescribed. Discussed medication side effects, adverse effects, risks, benefits, as well as interactions. Encouraged non-use of opioids. Encouraged participation in recovery groups. Patient may contact office with questions or concerns. Patient is agreeable to above treatment plan and or changes and verbalized understanding. Continue all medication as prescribed. Provided informed consent with understanding of side effects, adverse effects, risks and benefits as well as alternative treatments as previously discussed with the above recommended medication and other aspects of the treatment programs. Discussed off label uses of medication. Agrees to return sooner if symptoms worsen Client verbalized understanding of information and is agreeable to plan of care. Questions addressed. Education given to patient-Understand that discontinuing buprenorphine increased the risk of overdose upon return to illicit opioid use. Know that the use of alcohol or benzodiazepines with buprenorphine increases the risk of overdose and . Understand the importance of informing providers if they become or plan to become . Tell the provider if they are having a procedure that may require pain medications. Education gave about safe and locked storage of medications to avoid theft or inadvertent use, especially by children. Encouraged locking devices and avoiding storage in parts of the home frequented by visitors. 01/07/2025 Other Discussed refer ral from SHAUN Juarez with client regarding availability of peer recovery coaches and OP MH therapists via [facility]. Client states she understands nature of the referral. States she is still pondering if she wants to utilize either operations support professionals at this time. Client appears to be in contemplation stage of change and does not yet appear ready to call central access to schedule with either supports at this time. Client confirms she does have scheduling information as well as general information about both programs already, provided by SHAUN Juarez and PCP (SHAUN Betancur) and is grateful for the information. Client expresses desire to have more time to consider enrollment. Clinician encouraged client to reach out with any questions or concerns or if further needs arise. Praised client for considering the information and taking time to go over in detail. 01/16/2025 Other Patient agrees to take medication as prescribed. Discussed medication side effects, adverse effects, risks, benefits, as well as interactions. Encouraged non-use of opioids. Has naloxone. Recommended participation in recovery groups and/or counseling services. May contact office with questions or concerns. Patient may self-administe r their own medications or may self-administe r their own oral medications per [place] Protocol. 02/19/2025 Other Discussed MAR program expectations. It is not appropriate to continue routine use of any opioids while prescribed Suboxone. All treating physicians/provide rs should be made aware of Suboxone use as part of a MAR program for the treatment of OUD. Will increase frequency of visits at this time. Patient verbalized understanding. Has referral to pain management per PCP. Patient agrees to take medication as prescribed. Discussed medication side effects, adverse effects, risks, benefits, as well as interactions. Encouraged non-use of opioids and other illicit substances. Has naloxone. Discontinuing buprenorphine increases the risk of overdose upon return to illicit opioid use. Use of alcohol or benzodiazepines with buprenorphine increases the risk of overdose and . Education provided about safe storage of medications. Encouraged participation in recovery groups/counseling services. Contact office with questions or concerns. Patient may self-administe r their own medications or may self-administe r their own oral medications per [place] Protocol. 03/04/2025 Other Discussed MAR program expectations. It is not appropriate to continue routine use of any opioids while prescribed Suboxone. All treating physicians/provide rs should be made aware of Suboxone use as part of a MAR program for the treatment of OUD. Increased frequency of visits at this time. Has pain management referral from PCP. Patient agrees to take medication as prescribed. Discussed medication side effects, adverse effects, risks, benefits, as well as interactions. Encouraged non-use of opioids and other illicit substances. Has naloxone. Discontinuing buprenorphine increases the risk of overdose upon return to illicit opioid use. Use of alcohol or benzodiazepines with buprenorphine increases the risk of overdose and . Education provided about safe storage of medications. Encouraged participation in recovery groups/counseling services. Contact office with questions or concerns. Patient may self-administe r their own medications or may self-administe r their own oral medications per [place] Protocol. Plan Of Treatment No Information Insurance Providers Payer Name Payer Address Payer Phone Subscriber Number Group Number Insured Name Patient Relationship to Insured Coverage Start Date Coverage End Date [facility] [address] [place] [phone] [id number] ILONEX Ruba Alvarezy Self - patient is the insured 5 [address] [place] [address] [id number] Ruba Alvarezy Self - patient is the insured 5 5 MEDICAID [employer] [address] [place] [address] [id number] AntonioRubay Self - patient is the insured 5 5 MEDICAID [employer] MEDICAL ADMINISTRATIVE TECHNICIAN [address] [place] [address] [id number] Jackie Alvarez Self - patient is the insured 5 5 Medical (General) History Medical History History ICD Code Opiate Use Disorder Head Injury 2008 Surgical History Surgery Date(Month/Year) hysterectomy Hospitalization History Reason Date(Month/Year) [place]-[facility] detox 10/2024
--- OUTSIDE RECORDS SUMMARY | 2025-06-02 12:59 | XMS_ITS | Clinical Summary ---
Author Organization [facility] [place] [address] Address [address] [place] [address] Care Team Providers Care High School Librarian Name Role Phone Keaton Booth MD Primary Care Prov ider Allergies Active Allergy Reactions Criticality Noted Date Comments Penicillins Urticaria,Hives,Naus ea And Vomiting,Rash Medium 06/25/2015 Medications diphenoxylate-a tropine (LOMOTIL) 2.5-0.025 mg per tabletIndicatio ns:diarrhea Take 1 tablet by mouth daily. 2 12/08/2017 Active LORazepam (ATIVAN) 1 mg tablet Take 0.5 mg by mouth as needed. 2 12/03/2017 Active oxyCODONE-aceta minophen (PERCOCET) 10-325 mg per tabletIndicatio ns:Pain Take 1 tablet by mouth daily as needed. 0 12/22/2017 Active traZODone (DESYREL) 100 mg tablet Take 100 mg by mouth daily. Active aspirin 81 mg tablet Take 1 tablet (81 mg total) by mouth daily. 30 tablet 11 12/25/2017 Active nitroglycerin (NITROSTAT) 0.[address] 1 tablet (0.4 mg total) under the tongue every 5 (five) minutes as needed for chest pain. Max 3 doses. 60 tablet 3 12/25/2017 Active Active Problems Problem Noted Date Diagnosed Date Abnormal stress test 12/25/2017 Angina pectoris 12/25/2017 Family history of ischemic heart disease 018 Dyslipidemia 12/25/2017 Lipid screening 12/25/2017 Class 1 obesity due to exces s calories without serious comorbidity in adult 12/25/2017 Surgical History Surgery Date Site/Laterality Comments ECTOPIC SURGERY HYSTERECTOMY TONSILLECTOMY Social History Tobacco Use Types Packs/Day Years Used Date Smoking Tobacco: Never Smokeless Tobacco: Never Alcohol Use Standard Drinks/Week Comments No 0 (1 standard drink = 0.6 oz pur e alcohol) Personal Safety Answer Date Recorded Getting School Help Needed Not on file 12/29 Comments Unknown Sex and Gender Information Value Date Recorded Sex Assigned at Not on file Legal Sex Female 12:59 AM TAX ASSISTANT Gender Identity Not on file Sexual Orientation Not on file Obstetrics History Last Filed Vital Signs Vital Sign Reading Time Taken Comments Blood Pressure 112/80 12/25/2017 3:20 PM CDT Pulse 87 12/25/2017 3:20 PM CDT Temperature - - Respiratory Rate - - Oxygen Saturation 97% 12/25/2017 3:20 PM CDT Inhaled Oxygen Concentration - - Weight 98.9 kg (218 lb) 12/25/2017 3:20 PM CDT Height 170.2 cm (5' 7) 12/25/2017 3:20 PM CDT Body Mass Index 34.14 12/25/2017 3:20 PM CDT Plan of Treatment Not on file Insurance [facility] Care Teams High School Librarian Relationship Specialty Start Date End Date Keaton Booth MD [address] [place] [address] PCP - General 08/31/17
== END 2025-06-02 11:29 | disposition home or self-care (01) ==
PROVIDERS: PCP Family Medicine Adolescent Medicine; Visit Provider Nurse Practitioner Adult Health
DX: M46.1 Sacroiliitis, not elsewhere classified (principal); M47.816 Spondylosis without myelopathy or radiculopathy, lumbar region; M48.061 Spinal stenosis, lumbar region without neurogenic claudication
CPT/HCPCS: 72114; 72220

== ENCOUNTER 2025-07-08 11:00 | Outpatient (RCR) | payer BC, MEDICAID, SELFPAY ==
--- NOTE | 2025-06-06 11:01 | OPREHPOC ---
Outpatient Therapy Plan of Care This is a Multidisciplinary Plan of Care that may contain components documented by all disciplines (PT, OT, and ST.) PT Problem 1 PT Problem #1 Knowledge Deficit PT Goal 1 Goal / Goal Update 1* independent with HEP 2* correct body mechanics and posture demonstrated during PT session Target Visit 8 PT Problem 2 PT Problem #2 Pain PT Goal 1 Goal / Goal Update 1* pt report pain rating of 5/10 at worst 2* pt report standing/walking tolerance of 45 minutes 3* pt report sleeping awaken 2x/night due to pain Target Visit 8 PT Problem 3 PT Problem #3 Impaired Strength PT Goal 1 Goal / Goal Update 1*increase strength of trunk and hips to gross 4+/ 5 to improve stability to spine single leg standing x 10 seconds with good stability 2* R 3* L Target Visit 8 PT Problem 4 PT Problem #4 Impaired Flexibility PT Goal 1 Goal / Goal Update increase flexibility of hips, to decrease strain over lumbar-sacral complex: hamstring length with supine SLR 1* R 65' 2* L 75' anterior hip/quad length with prone knee flexion 3* R 120' 4* L 125' Target Visit 8
--- NOTE | 2025-06-06 11:01 | PTOPEVAL1 ---
Assessment and note entered by Bertha Donohue, PT Evaluation Information Assessment Status Evaluation ICD-10 Condition Codes (PT) Pain in low back M54.50 Other ICD-10 Condition Codes ( spinal stenosis PT) Onset Sep 2024 Subjective Information have chronic back pain but last winter had several falls and back pain worse; x ray: narrowing of disc space L 4-5-S1 with osteophytes and sacrum with mild to moderate OA previous PT- long ago, not recall anything that helped it; have seen pain management one time- waiting to have MRI of back, scheduled for next week; Activity: not work outside of home; problems doing house work--cleaning, sweeping, mopping. have family to assist at home; independent with bathing, dressing; Reported Pain Level Pain Score Self Report Additional Pain Score Comments pain range in the past week 5-05/25; R > L lumbar; no radicular pain increase pain: walk 30 min; stairs to basement, cleaning home; sitting 15-20 minutes decrease pain: sit, rest, ibuprofen, heat was on pain meds- oxycodone, stopped it with sleeping, awaken due to pain 4x/night due to back hurting; problems getting a comfortable position Assessment PT Clinical Summary Jackie has the diagnosis of back pain, stenosis. Back Index self rating of 66% limitation in activity level--decreased walking, sitting and sleeping, activity tolerances. She reports issues with chronic back pain, increased with several falls last winter. x ray with changes as above. She is also under the care of pain management and is to have an MRI next week. With the PT evaluation: pain over R sacrum; poor standing posture of trunk and hips with decrease weight bearing on R LE; 2 minute walking test distance of 350' with pain increase to 8; decreased flexibility of R hamstring and anterior hip-quad muscles; Skilled PT services for treatment of R sacral dysfunction: modalities for pain, therapeutic exercises to increase hip and trunk flexibility and strength with education for HEP, posture and body mechanics. Plan of Care Interventions Electrical Stimulation,Hot Pack/Cold Pack,Manual Therapy,Neuro Re-education,Patient/Caregiver Education,Therapeutic Activities,Therapeutic Exercise,Ultrasound,Other Other Interventions taping PT Services Indicated Yes Treatment Frequency and 1-2x/wk for 8 visits Duration These treatments will address the objective and functional deficits as defined above. The patient will be advanced safely and appropriately in order for the patient to progress towards his/her prior level of function. Additional exercises will be introduced and as well as a comprehensive home exercise program upon discharge, if needed, ?to ensure carryover of functional gains achieved in the clinic. This treatment plan has been reviewed and agreement upon by the patient.
--- NOTE | 2025-06-06 12:01 | PCPTNOTE ---
pt was 15 minutes late for initial PT evaluation appt.
--- NOTE | 2025-07-08 07:57 | PCPTNOTE ---
LATE ENTRY for 07-07-25: pt did not show for today's reevaluation appt; when called, she reports she called and canceled the appt.
--- NOTE | 2025-07-08 11:46 | OPREHPOC ---
Outpatient Therapy Plan of Care This is a Multidisciplinary Plan of Care that may contain components documented by all disciplines (PT, OT, and ST.) PT Problem 1 PT Problem #1 Knowledge Deficit PT Goal 1 Goal / Goal Update 1* independent with HEP 2* correct body mechanics and posture demonstrated during PT session 07-08-25 progress goals met continue towards goals, to progress education Target Visit 16 PT Problem 2 PT Problem #2 Pain PT Goal 1 Goal / Goal Update 1* pt report pain rating of 5/10 at worst 2* pt report standing/walking tolerance of 45 minutes 3* pt report sleeping awaken 2x/night due to pain 07-08-25 progress goals not met; continue towards goals #1 is 8/10; #2 is 30 minutes; #3 is 4x/night Target Visit 16 PT Problem 3 PT Problem #3 Impaired Strength PT Goal 1 Goal / Goal Update 1*increase strength of trunk and hips to gross 4+/ 5 to improve stability to spine single leg standing x 10 seconds with good stability 2* R 3* L 07-08-25 progress goals not met; improved #2 to 3 and #3 to 4 seconds continue towards goals Target Visit 16 PT Problem 4 PT Problem #4 Impaired Flexibility PT Goal 1 Goal / Goal Update increase flexibility of hips, to decrease strain over lumbar-sacral complex: hamstring length with supine SLR 1* R 65' 2* L 75' anterior hip/quad length with prone knee flexion 3* R 120' 4* L 125' 07-08-25 progress goal 1 met continue towards other goals Target Visit 16
--- NOTE | 2025-07-08 11:47 | PTOPPROG ---
Assessment and note entered by Bertha Donohue, PT Assessment Status Progress ICD-10 Condition Codes (PT) Pain in low back M54.50 Other ICD-10 Condition Codes ( spinal stenosis PT) Onset Sep 2024 Subjective Information back is about the same, not any better since coming for therapy; the stim and heat help the pain; have been doing the exercises at home; feel bad today--short of breath, problems breathing and not feeling well; see the pain management dr tomorrow; have not been able to get the MRI due to radiologist shortage, they are not making appt. Assessment PT Clinical Summary Jackie has received 7 PT sessions. Compared to the initial evaluation: same with pain rating at 5-8/10 in low back, reported standing/ walking of 30 minutes and with sleeping awaken 4x/ night; self assessment with back index rating from 66 to 80% limitation in activity level; increase strength of hips and trunk with single leg standing; 2 minute walking test distance from 350' with pain of 8/10 to 340' with pain rating 6/ 10; increase flexibility of R hamstring; continues to have pain with supine R hip IR and L hip flexion, IR and ER motions; education for HEP , posture and body mechanics. The goals were partially met. Continue PT treatment. Plan of Care Interventions Electrical Stimulation,Hot Pack/Cold Pack,Manual Therapy,Neuro Re-education,Patient/Caregiver Education,Therapeutic Activities,Therapeutic Exercise,Ultrasound,Other Other Interventions taping PT Services Indicated Yes Treatment Frequency and 1-2x/wk for 8 visits Duration These treatments will address the objective and functional deficits as defined above. The patient will be advanced safely and appropriately in order for the patient to progress towards his/her prior level of function. Additional exercises will be introduced and as well as a comprehensive home exercise program upon discharge, if needed, ?to ensure carryover of functional gains achieved in the clinic. This treatment plan has been reviewed and agreement upon by the patient.
--- NOTE | 2025-08-20 08:31 | OPREHPOC ---
Outpatient Therapy Plan of Care This is a Multidisciplinary Plan of Care that may contain components documented by all disciplines (PT, OT, and ST.) PT Problem 1 PT Problem #1 Knowledge Deficit PT Goal 1 Goal / Goal Update 1* independent with HEP 2* correct body mechanics and posture demonstrated during PT session 07-08-25 progress goals met continue towards goals, to progress education 08-20-25 d/c pt stopped attending therapy the goals were not addressed. Target Visit 16 PT Problem 2 PT Problem #2 Pain PT Goal 1 Goal / Goal Update 1* pt report pain rating of 5/10 at worst 2* pt report standing/walking tolerance of 45 minutes 3* pt report sleeping awaken 2x/night due to pain 07-08-25 progress goals not met; continue towards goals #1 is 8/10; #2 is 30 minutes; #3 is 4x/night 08-20-25 d/c pt stopped attending therapy the goals were not addressed. Target Visit 16 PT Problem 3 PT Problem #3 Impaired Strength PT Goal 1 Goal / Goal Update 1*increase strength of trunk and hips to gross 4+/ 5 to improve stability to spine single leg standing x 10 seconds with good stability 2* R 3* L 07-08-25 progress goals not met; improved #2 to 3 and #3 to 4 seconds continue towards goals 08-20-25 d/c pt stopped attending therapy the goals were not addressed. Target Visit 16 PT Problem 4 PT Problem #4 Impaired Flexibility PT Goal 1 Goal / Goal Update increase flexibility of hips, to decrease strain over lumbar-sacral complex: hamstring length with supine SLR 1* R 65' 2* L 75' anterior hip/quad length with prone knee flexion 3* R 120' 4* L 125' 07-08-25 progress goal 1 met continue towards other goals 08-20-25 d/c pt stopped attending therapy the goals were not addressed. Target Visit 16
--- NOTE | 2025-08-20 08:31 | PTOPDC ---
Assessment and note entered by Bertha Donohue, PT Assessment Status Discharge - Pt Not Present ICD-10 Condition Codes (PT) Pain in low back M54.50 Other ICD-10 Condition Codes ( spinal stenosis PT) Onset Sep 2024 Subjective Information pt was not seen this date. Assessment PT Clinical Summary Jackie has not returned for any additional PT treatment since the progress report dated 07-08-25. The goals were not addressed. Discharge PT due to pt stopped attending. Plan of Care PT Services Indicated No
== END 2025-08-20 08:55 | disposition home or self-care (01) ==
LOC: ANHPT 11:00
PROVIDERS: PCP Family Medicine Adolescent Medicine; Visit Provider Nurse Practitioner Adult Health
DX: M54.16 Radiculopathy, lumbar region (principal); M47.816 Spondylosis without myelopathy or radiculopathy, lumbar region; M48.061 Spinal stenosis, lumbar region without neurogenic claudication
CPT/HCPCS: 97014; 97110; 97140; 97161; 97530; G0283

== ENCOUNTER 2025-07-09 12:15 | Outpatient (CLI) | payer OTHER, MEDICAID, SELFPAY ==
--- OUTSIDE RECORDS SUMMARY | 2016-03-01 13:41 | XMS_ITS | Continuity of Care Document ---
Author Organization [facility] Address [address] [place] [address] Phone Care Team Providers Care Engineering Intern Name Role Phone Quintin Plata DDS Unavailable Unavaila ble Procedures Procedure Date LEFT W/O BEING SEEN Advance Directives Directive Yes / No Effective Date File Name No Information Encounters Encounter Description Practice Location Reason(s) For Visit Diagnoses Date Provider Providers Copied on Encounter [facility], [address] [place] [address], [id number], tel:[phone] [facility] No Information Boni Ribeiro. [address] [place] [address], [id number], [place]. tel:[phone] [facility], [address] [place] [address], [id number], tel:[phone] [facility] No Information Boni Ribeiro. [address] [place], [place], [id number], . tel:[phone] Family History Family Member Type Diagnosis Age At Onset No Information Payers Payer name Insurance type Covered constitution party ID Authoriza tion(s) No Information Social History [...]
--- OUTSIDE RECORDS SUMMARY | 2025-07-09 12:37 | XMS_ITS | Clinical Summary ---
Author Organization [facility] [place] [address] Address [address] [place] [address] Care Team Providers Care Aircraft Ordnance Technician Name Role Phone Keaton Booth MD Primary [...] on file Legal Sex Female 12:59 AM PROPERTY ADMINISTRATOR Gender Identity Not on file Sexual Orientation [...] Plan of Treatment Not on file Insurance [facility] Care Teams Aircraft Ordnance Technician Relationship Specialty Start Date End Date Keaton Booth MD PCP - General 08/31/17
--- OUTSIDE RECORDS SUMMARY | 2025-07-09 12:37 | XMS_ITS | Clinical Summary ---
Author Organization [facility] Address [address] [place] [address] Care Team Providers Care Half Backer Name Role Phone Keaton Booth MD Primary Care Provider + Source Comments [facility],non-owned Affiliates and Associated Physician Practices is amultiple site organization consisting of ambulatory clinics and hospital sitesin [place], [place], [place] and [place]. This disclosure is being madepursuant to the Care Everywhere program and may not contain all information available regarding this patient. Last updated 18.[facility] [employer] Allergies Active Allergy Reactions Criticality Noted Date Comments Penicillins Urticaria 06/25/2015 Medications * This document contains information received from the source organization and may not represent a complete record from that organization. * Be aware that medications may not be up to date on this document. Alwaysverify current medications with the patient. No known medications Social History Tobacco Use Types Packs/Day Years Used Date Smoking Tobacco: Never Alcohol Use Standard Drinks/Week Comments No 0 (1 standard drink = 0.6 oz pur e alcohol) Comments Unknown Sex and Gender Information Value Date Recorded Sex Assigned at Not on file Legal Sex Female 2:02 PM CDT Gender Identity Not on file Sexual Orientation Not on file Last Filed Vital Signs Vital Sign Reading Time Taken Comments Blood Pressure 119/83 11/04/2016 10:09 AM DOCTOR OF PODIATRY Pulse 114 11/04/2016 10:09 AM DOCTOR OF PODIATRY Temperature 36.4 C (97.6 F) 06/25/2015 4:44 PM CDT Respiratory Rate 18 06/25/2015 9:27 PM CDT Oxygen Saturation 100% 06/25/2015 9:27 PM CDT Inhaled Oxygen Concentration - - Weight 92.3 kg (203 lb 8 oz) 11/04/2016 10:09 AM DOCTOR OF PODIATRY Height 170.2 cm (5' 7) 11/04/2016 10:09 AM DOCTOR OF PODIATRY Body Mass Index 31.87 11/04/2016 10:09 AM DOCTOR OF PODIATRY Plan of Treatment Health Maintenance Due Date Last Done Comments COLOGUARD (AGES 45-75) - COL ON CA SCREENING 1960 COLON MONITORING 1960 COLONOSCOPY - COLON CA SCREENING 1961 CT COLONOGRAPHY - COLON CA SCREENING 1960 Colorectal Cancer Screening 1960 FIT - COLON CA SCREENING 1960 FLEX SIG - COLON CA SCREENING 1960 LIPID TESTING 1960 MAMMOGRAM 1960 HIV SCREENING 1976 HEPATITIS C SCREENING 05/26/1979 DTAP/TDAP/TD VACCINES (1 - Tdap) 1980 PNEUMOCOCCAL VACCINE 50+ (1 of 1 - PCV) 2011 ZOSTER VACCINE (1 of 2) 2011 DEPRESSION SCREENING 10/16/2024 COVID-19 VACCINE (1 - 2023-2 5 season) 2025 INFLUENZA VACCINE (#1) 2025 Respiratory Syncytial Virus (RSV) Vaccine Pt: or over 60 yrs (1 - 1-dose 75+ series) 2036 HEPATITIS B VACCINE Aged Out No longe r eligible based on patient's age to complete this topic HIB VACCINE Aged Out No longer eligi ble based on patient's age to complete this topic HPV VACCINE Aged Out No longer eligi ble based on patient's age to complete this topic MENINGOCOCCAL (Group B) VACC INE SHARED DECISION-MAKING Aged Out No longer eligibl e based on patient's age to complete this topic MENINGOCOCCAL GROUPS A/C/Y/W VACCINE Aged Out No longer eligible b ased on patient's age to complete this topic Insurance [facility] Care Teams Half Backer Relationship Specialty Start Date End Date Keaton Booth MD [address] [address] PCP - General Family Medicine 04/28/15
--- OUTSIDE RECORDS SUMMARY | 2025-07-09 12:37 | XMS_ITS | Encounter Summary ---
Author Organization [facility] Address [address] [place] [address] Care Team Providers Care Solar Manufacturer'S Representative Name Role Phone Keaton Booth MD Primary Care Prov ider Encounter Details Date Type Department Care Team (Late st Contact Info) Description 1960 Orders Only [facility] Health Information Management [address] [place] [id number] Scanning, Provider Social History Tobacco Use Types Packs/Day Years Used Date Smoking Tobacco: Never Assessed Comments Unknown Sex and Gender Information Value Date Recorded Sex Assigned at Not on file Legal Sex Female 12:59 AM OFFICE MANAGER EXECUTIVE ASSISTANT Gender Identity Not on file Sexual [...] on filedocumented in this encounter Care Teams Solar Manufacturer'S Representative Relationship Specialty Start Date End Date Keaton Booth MD PCP - General 08/31/17 documented as of this encounter
--- OUTSIDE RECORDS SUMMARY | 2025-07-09 12:37 | XMS_ITS | Clinical Summary ---
Author Organization [facility] Address [address] [place] [address] Care Team Providers Care Product Safety Test Engineer Name Role Phone Thereas Diaz SHAUN Primary Care Provider [phone] Allergies Active Allergy Reactions Criticality Noted Date Comments Penicillins Hives,Nausea and Vomiting,Rash Medium 11/16 Medications * This document contains information received from the source organization and may not represent a complete record from that organization. diphenoxylate-at ropine 2.5-0.025 MG tablet Take 1 tablet by mouth. 12/08/2017 Active lorazepam 1 MG tablet Take 0.5 mg by mouth. 12/03/2017 Active oxyCODONE-acetam inophen 10-325 MG tablet Take 1 tablet by mouth. 12/22/2017 Active trazodone 100 MG tablet Take 100 mg by mouth. Active Active Problems Problem Noted Date Diagnosed Date Lumbar radiculopathy 12/25/2017 Family History Medical History Relation Comments Cancer Brother Heart Disease Father Cancer Mother Cancer Sister Relation Status Comments Brother Father Mother Sister Social History Tobacco Use Types Packs/Day Years Used Date Smoking Tobacco: Never Smokeless Tobacco: Never Alcohol Use Standard Drinks/Week Comments No 0 (1 standard drink = 0.6 oz pur e alcohol) Comments No Sex and Gender Information Value Date Recorded Sex Assigned at Not on file Legal Sex Female 7:09 PM CDT Gender Identity Not on file Sexual Orientation Not on file Last Filed Vital Signs Vital Sign Reading Time Taken Comments Blood Pressure 119/78 01/17/2018 9:23 AM CDT Pulse 75 01/17/2018 9:23 AM CDT Temperature 36.4 C (97.6 F) 01/17/2018 8:26 AM CDT Respiratory Rate 18 01/17/2018 9:23 AM CDT Oxygen Saturation 97% 01/17/2018 9:23 AM CDT Inhaled Oxygen Concentration - - Weight 97.7 kg (215 lb 6.4 oz) 01/17/2018 8:26 A M CDT Height 170.2 cm (5' 7) 01/17/2018 8:26 AM CDT Body Mass Index 33.74 01/17/2018 8:26 AM CDT Plan of Treatment Health Maintenance Due Date Last Done Comments Colorectal Cancer Screening Colonoscopy (10 Years) 1960 Annual Physical 1964 Hepatitis C 1979 DTaP, Tdap and Td Vaccines ( 1 - Tdap) 1980 Mammogram Screening 2001 Pneumococcal Vaccine: 50+ Ye ars (1 of 1 - PCV) 2011 Zoster Vaccines (1 of 2) 2011 COVID-19 Vaccine (1 - 2023-2 5 season) 2025 RSV Immunization or 60+ Years (1 - 1-dose 75+ series) 2036 Meningococcal B Vaccine Aged Out No l onger eligible based on patient's age to complete this topic Meningococcal Vaccine Aged Out No efraín anisha eligible based on patient's age to complete this topic RSV Immunizations Under 20 Months Aged Out No longer eligible based on patient's age to complete this topic Insurance [facility] Advance Directives Documents on File Type Date Recorded Patient Rn Mds Expl anation Advance Directives and Living Will 04/13/2018 12:00 AM ADVANCED DIRECTIVES Care Teams Product Safety Test Engineer Relationship Specialty Start Date End Date Theresa [place] [address] PCP - General NURSE PRACTITIONER 03/26/25
[2025-07-09 12:44] LABS: Hematocrit 33.2 % (37.0-47.0); Hemoglobin 10.3 g/dL (12.0-15.0); Immature Granulocyte Percent A 0.4 % (0-0.5); Lymphocytes Absolute Auto 1.93 K/mm3 (0.9-3.2); Mean Corpuscular HGB Conc 31.0 g/dl (32-36); Mean Corpuscular Hemoglobin 28.0 pg (26-34); Mean Corpuscular Volume 90.2 fl (80-100); Nucleated Red Blood Cells Absolute Auto 0.000 K/mm3 (0.0-0.012); Nucleated Red Blood Cells Perc 0.0 % (0.0-0.2); Platelet Count Result 215 k/mm3 (150-375); Red Blood Count 3.68 M/mm3 (4.2-5.4); White Blood Count 7.3 K/mm3 (4.5-10.0)
[2025-07-09 13:04] LABS: Iron 63 ug/dL (37-170)
[2025-07-09 13:13] LABS: Percent Iron Saturation 19 % (20-50)
[2025-07-09 13:28] LABS: Alanine Aminotransferase 27 U/L (6-35); Albumin Level 4.0 g/dL (3.5-5.1); Anion Gap 8 mmol/L (4-12); Bilirubin,Total 0.6 mg/dL (0.2-1.3); Blood Urea Nitrogen 13 mg/dL (7-17); Calcium 8.6 mg/dL (8.4-10.2); Carbon Dioxide 29 mmol/L (22-30); Chloride 101 mmol/L (98-107); Cholesterol 252 mg/dL (0-200); Estimated Glomerular Filt Rate > 60; Glucose 85 mg/dL (65-110); HDL Direct 44 mg/dL; Sodium 138 mmol/L (137-145); Total Protein 7.8 g/dL (6.3-8.2); Triglycerides 279 mg/dL (<150)
[2025-07-09 13:37] LABS: Alkaline Phosphatase 97 U/L (38-126); Aspartate Amino Transferase 35 U/L (14-36); Potassium 4.7 mmol/L (3.4-5.0); Thyroid Stimulating Hormone Reflex 3.260 uIU/mL (0.465-4.68)
[2025-07-09 13:46] LABS: Ferritin 49.80 ng/mL (11.1-264)
[2025-07-09 13:59] LABS: Vitamin B12 221.0 pg/mL (239-931)
== END 2025-07-09 12:16 | disposition home or self-care (01) ==
LOC: ANHLAB 12:17
PROVIDERS: PCP Family Medicine Adolescent Medicine; Visit Provider Nurse Practitioner Family
DX: F33.1 Major depressive disorder, recurrent, moderate (principal); F41.1 Generalized anxiety disorder; D64.9 Anemia, unspecified; M54.9 Dorsalgia, unspecified; G89.29 Other chronic pain
CPT/HCPCS: 36415; 80053; 80061; 82306; 82607; 82728; 83540; 83550; 84443; 85025

== ENCOUNTER 2025-07-18 09:01 | Outpatient (CLI) | payer MEDICAID, SELFPAY ==
--- NOTE | ~2025-07-18 | MR_ITS ---
EXAMINATION: MR brain/brain stem wo con DATE: 07/18/2025 09:47 INDICATION: Other amnesia. TECHNIQUE: Magnetic resonance imaging (MRI) of the brain and brainstem was performed without intravenous contrast. COMPARISON: Head CT 09/27/2024 FINDINGS: There are scattered areas of nonspecific increased T2-weighted signal intensity in the cerebral white matter. There is no intracranial hemorrhage, acute infarction, or abnormal intracranial mass lesion. The ventricles are normal in size. There is mucosal thickening in the paranasal sinuses. The orbits are normal. The mastoid air cells are normal. IMPRESSION: 1. Moderate nonspecific cerebral white matter disease, which likely represents chronic small vessel ischemic disease. Reviewed, dictated and finalized at location E.
== END 2025-07-18 09:02 | disposition home or self-care (01) ==
LOC: MICIMG 09:02
PROVIDERS: PCP Family Medicine Adolescent Medicine; Visit Provider Nurse Practitioner Family
DX: R41.3 Other amnesia (principal)
CPT/HCPCS: 70551

== ENCOUNTER 2025-07-18 09:06 | Outpatient (CLI) | payer MEDICAID, SELFPAY ==
--- NOTE | ~2025-07-18 | MR_ITS ---
EXAMINATION: MR lumbar spine wo con DATE: 07/18/2025 09:48 INDICATION: Radiculopathy, lumbar region. TECHNIQUE: Magnetic resonance imaging (MRI) of the lumbar spine was performed without intravenous contrast. Sequences included sagittal T2-weighted FSE, sagittal T2-weighted FS FSE, sagittal T1-weighted FSE, and axial T2-weighted FSE. COMPARISON: Lumbar spine MRI 10/26/16 FINDINGS: There is 5 degrees levocurvature of lumbar spine. There is 3 mm retrolisthesis of L2 on L3. There is mild chronic anterior wedging of L1 vertebral body. There is moderately decreased disc height at L2-L3, mildly decreased disc height at L3-L4, and severely decreased disc height at L4-L5. The distal spinal cord signal intensity is normal. The conus medullaris is at L1. The following disc levels are specifically discussed: L1-L2: The disc is bulging. There is moderate right and mild left facet joint osteoarthritis. There is mild bilateral neural foraminal stenosis. There is mild central canal stenosis. L2-L3: The disc is bulging and has an annular fissure. There is mild bilateral facet joint osteoarthritis. There is mild right and moderate left neural foraminal stenosis. There is mild central canal stenosis. L3-L4: The disc is bulging. There is moderate bilateral facet joint osteoarthritis. There is mild bilateral neural foraminal stenosis. There is mild central canal stenosis. L4-L5: The disc is bulging and has an annular fissure. There is severe bilateral facet joint osteoarthritis. There is mild right and moderate left neural foraminal stenosis. There is mild central canal stenosis. L5-S1: The disc is bulging. There is severe bilateral facet joint osteoarthritis. There is mild bilateral neural foraminal stenosis. There is mild central canal stenosis. IMPRESSION: 1. Severe lumbar spondylosis, worsened from 10/26/2016. Reviewed, dictated and finalized at location E.
== END 2025-07-18 09:07 | disposition home or self-care (01) ==
LOC: MICIMG 09:06
PROVIDERS: PCP Family Medicine Adolescent Medicine; Visit Provider Nurse Practitioner Adult Health
DX: M47.26 Other spondylosis with radiculopathy, lumbar region (principal); M48.061 Spinal stenosis, lumbar region without neurogenic claudication
CPT/HCPCS: 72148

== ENCOUNTER 2025-07-24 13:49 | Outpatient (CLI) | payer BC, MEDICAID, SELFPAY ==
--- NOTE | ~2025-07-24 | DEXA_ITS ---
Bone Density Report Name: JANNETH GRAY Age: 65 Sex: Female Ethnicity: White Date of : 1960 Indication: postmenopausal; screening for osteoporosis; height loss; hysterectomy; Referring Provider: MISA, ANGELES Yadav Study: Bone densitometry was performed. Exam Date: July 24, 2025 Accession number: [id number] Bone Density: Region BMD T-score Z-score Classification AP Spine(L1, L2, L3) 0.932 -0.8 0.9 Normal Femoral Neck (Left) 0.655 -1.8 -0.3 Osteopenia Total Hip (Left) 0.810 -1.1 0.1 Osteopenia Femoral Neck (Right) 0.617 -2.1 -0.6 Osteopenia Total Hip (Right) 0.836 -0.9 0.3 Normal Total Hip Mean 0.823 -1.0 0.2 Normal World Health Organization criteria for BMD impression classify patients as: Normal (T-score at or above -1.0), Osteopenia (T-score between -1.0 and -2.5), or Osteoporosis (T-score at or below -2.5). 10-year Fracture Risk(1): Major Osteoporotic Fracture 10.0% Hip Fracture 1.4% Reported Risk Factors: [place] (), Neck BMD=0.617, BMI=33.1 (1) FRAX(R) Version 3.08. Fracture probability calculated for an untreated patient. Fracture probability may be lower if the patient has received treatment. Clinical Information Provided by Patient: Has the following medical conditions: Hysterectomy Patient maximum height was 66.5 Menopause Age: 38 No regular weight bearing exercise Does not regularly consume dairy products Drinks caffeinated beverages Onset of menses at age 13 Number of children 2 Impression: The patient has low bone mass, based on the Right Femoral Neck T-score. The patient has an estimated ten-year risk of hip fracture of 1.4% and an estimated ten-year risk of major fracture of 10%, based on the WHO FRAX algorithm. Discussion: BONE DENSITY IS LOW AT ONE OR MORE SKELETAL SITES. This patient's lowest T-score is low at one or more skeletal sites. It meets the World Health Organization's (WHO) criteria for ?low bone mass? (T-score between -1.0 and -2.5). The patient's 10-year risk of fracture as calculated by FRAX is less than the threshold where pharmacological therapy is recommended by the National Osteoporosis Foundation (NOF). However, all treatment decisions require clinical judgment and consideration of individual patient factors, including patient preferences, comorbidities, previous drug use, risk factors not captured in the FRAX model (e.g., frailty, falls, vitamin D deficiency, increased bone turnover, interval significant decline in bone density) and possible under or overestimation of fracture risk by FRAX. The patient should follow a healthful lifestyle (good nutrition with adequate calcium and vitamin D, and appropriate weight-bearing exercise). Follow-Up: Consider repeating this study in 2 to 3 years to reassess this patient's status, or sooner if there is some new clinical indication. Reported by: REJI on 07/24/2025 2:32:00 PM. Reviewed, dictated and finalized at location A.
== END 2025-07-24 13:50 | disposition home or self-care (01) ==
LOC: ANHFOHIMG 13:51
PROVIDERS: PCP Family Medicine Adolescent Medicine; Visit Provider Nurse Practitioner
DX: Z13.820 Encounter for screening for osteoporosis (principal); M85.852 Other specified disorders of bone density and structure, left thigh; M85.851 Other specified disorders of bone density and structure, right thigh
CPT/HCPCS: 77080

== ENCOUNTER 2025-08-11 06:04 | Day surgery (SDC) | payer BC, MEDICAID, SELFPAY ==
--- OUTSIDE RECORDS SUMMARY | 2016-03-01 13:41 | XMS_ITS | Continuity of Care Document ---
Author Organization [facility] Address [address] [place] [address] Phone Care Team Providers Care Lead Cargoman Name Role Phone Quintin Plata DDS Unavailable Unavaila ble Procedures Procedure Date LEFT W/O BEING SEEN Advance Directives Directive Yes / No Effective Date File Name No Information Encounters Encounter Description Practice Location Reason(s) For Visit Diagnoses Date Provider Providers Copied on Encounter [facility], [address] [place] [address], [id number], tel:[phone] [facility] No Information Boni Ribeiro. [address] [place] [address], [id number], [place]. tel:[phone] [facility], [address] [place] [address], [id number], tel:[phone] [facility] No Information Boni Ribeiro. [address] [place], [place], [id number], . tel:[phone] Family History Family Member Type Diagnosis Age At Onset No Information Payers Payer name Insurance type Covered libertarian ID Authoriza tion(s) No Information Social History [...]
--- OUTSIDE RECORDS SUMMARY | 2025-06-30 06:30 | XMS_ITS ---
Author Organization [facility] Address [address] [place] [address] Care Team Providers Care Chain Sales Representative Name Role Phone Ann Flores Primary Care Provider REASON FOR VISIT 4 week F/U Social History Sex Assigned At : Social History Observation Description Sex Assigned At Female Encounters Encounter Location Date Provider Diagnosis [address] [place] [address] 06/30/2025 Ann Flores Plan Of Treatment No Information Progress Notes * Bozena ALVAREZOB:1960 (65 yo F)Acc No.[id number]:06/30/2025 UNLOCKED PROGRESS NOTE Patient: Jackie GALARZA Provider: Nestor Flores DNP, APRN, PMHNP-BC :1960 A ge:65 Y S ex:Female Date:06/30/2025 Address:[address] [place], [place] [id number] Subjective: * Chief Complaints: * 1 . 4 week F/U. * Medical History: Objective: * Vitals: Assessment: Plan: * Treatment: * * Electronic signature of Meghana Serrano , [id number] on 08/11/2025 at 07:16 AM CDT Sign off status: Pending * Provider: Nestor Flores DNP, APRN, PMHNP-BC Date: 0 06/30/2025 Generated for Printing/Faxing/eTransmitting on: 1 07:16 AM CDT
--- NOTE | ~2025-08-11 | XR_ITS ---
XR fluoroscopy no charge Indication:bilateral L4-5 transforaminal epidural steroid injection TECHNIQUE: Fluoroscopy used during bilateral L4-5 transforaminal epidural steroid injection performed by [Gurmeet Rodrigues MD] on 08/11/2025. 52 fluoroscopic images captured. FINDINGS: Correlate with procedure note. IMPRESSION: Fluoroscopy used during bilateral L4-5 transforaminal epidural steroid injection. Reviewed, dictated and finalized at location B. IMPRESSION: Fluoroscopy used during bilateral L4-5 transforaminal epidural ster oid injection.
--- OUTSIDE RECORDS SUMMARY | 2025-08-11 07:16 | XMS_ITS | Clinical Summary ---
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
--- OUTSIDE RECORDS SUMMARY | 2025-08-11 07:17 | XMS_ITS | Clinical Summary ---
Author Organization [facility] Address [address] [place] [address] Care Team Providers Care Consulting Psychiatrist Name Role Phone Theresa Diaz SHAUN Primary Care Provider [phone] Allergies Active Allergy Reactions Criticality Noted Date [...] Vaccines (1 of 2) 2011 COVID-19 Vaccine ( - 2024-2 6 season) 2025 Influenza Adult (#1) 2025 RSV Immunization or 60+ Years (1 - 1-dose 75+ series) 2036 Hepatitis A Vaccines Aged Out No long er eligible based on patient's age to complete this topic Meningococcal B Vaccine Aged Out No l onger eligible based on patient's age to complete this topic Meningococcal Vaccine Aged Out No efraín anisha eligible based on patient's age to complete this topic RSV Immunizations Under 20 Months Aged Out No longer eligible based on patient's age to complete this topic Insurance [facility] Advance Directives Documents on File Type Date Recorded 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
--- OUTSIDE RECORDS SUMMARY | 2025-08-11 07:17 | XMS_ITS | Clinical Summary ---
Author Organization [facility] Address [address] [place] [address] Care Team Providers Care Nutrition Intern Name Role Phone Keaton Booth MD Primary Care Provider + Source Comments [facility],non-owned Affiliates and Associated Physician Practices is amultiple site organization consisting of ambulatory clinics and hospital [place]in [place] and [place]. This disclosure is being madepursuant to the Care Everywhere program and may not contain all information available regarding this patient. Last updated 18.[facility] [employer] Allergies Active Allergy Reactions Criticality Noted Date [...] Comments Blood Pressure 119/83 11/04/2016 10:09 AM BUCKLE SEWER MACHINE Pulse 114 11/04/2016 10:09 AM BUCKLE SEWER MACHINE Temperature 36.4 C (97.6 F) 06/25/2015 4:44 PM CDT Respiratory Rate 18 06/25/2015 9:27 PM CDT Oxygen Saturation 100% 06/25/2015 9:27 PM CDT Inhaled Oxygen Concentration - - Weight 92.3 kg (203 lb 8 oz) 11/04/2016 10:09 AM BUCKLE SEWER MACHINE Height 170.2 cm (5' 7) 11/04/2016 10:09 AM BUCKLE SEWER MACHINE Body Mass Index 31.87 11/04/2016 10:09 AM BUCKLE SEWER MACHINE Plan of Treatment Health Maintenance Due Date [...] patient's age to complete this topic Insurance [facility] Care Teams Nutrition Intern Relationship Specialty Start Date End Date Keaton Booth MD [address] [address] PCP - General Family Medicine 04/28/15
--- OUTSIDE RECORDS SUMMARY | 2025-08-11 07:17 | XMS_ITS | Encounter Summary ---
Author Organization [facility] Address [address] [place] [address] Care Team Providers Care Street Cleaning Equipment Operator Name Role Phone Keaton Booth MD Primary Care Prov ider Encounter Details Date Type Department Care Team (Late st Contact Info) Description 1960 Orders Only [facility] Health Information Management [address] [place] [id number] Scanning, Provider Social History Tobacco Use Types Packs/Day Years Used Date Smoking Tobacco: Never Assessed Comments Unknown Sex and Gender Information Value Date Recorded Sex Assigned at Not on file 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
--- OUTSIDE RECORDS SUMMARY | 2025-08-11 07:17 | XMS_ITS | Patient Health Record ---
Author Organization [facility] Address [address] [place] [address] Care Team Providers Care Aviation Medicine Specialist Name Role Phone Ann Flores Primary Care Provider [phone] Hebert Shaw Unavailable [phone] Martinez Rapp Unavailable [phone] Brianda Benavides Unavailable [phone] Laure Sarmiento Unavailable [phone] Nyasia Steele Unavailable [phone] Wendy Hartman Unavailable [phone] Beronica Perkins Unavailable [phone] Pari Souza Unavailable [phone] Joan Joyce Unavailable [phone] Hilda Lundberg Unavailable [phone] Allergies Allergen (clinical drug ingredient) Drug/Non Drug Allergy documented on EMR Reaction Allergy Type Onset Date Status Penicillin anaphylaxis Drug Allergy Acti ve Results Component Value Reference Range Notes Buprenorphine and Metabolite (Urine test) Reviewed date:07/08/2025 08:43:39 AM Interpretation: Performing Lab:[facility], [address] [email or web address], [place], Phone - [phone], Director - PhDAbudu Notes/Report: Clinical Information:[id number] Buprenorphine Comment: Confirmation p erformed by Mass Spectrometry Buprenorphine Positive Buprenorphine Conf, MS, UR 396 Cutoff=10 ng/m L Norbuprenorphine Comment: Invalid Res ult: LC/MS/MS Interference 14 Panel Urine Drug Screen Reviewed date:06/30/2025 02:12:03 PM Interpretation: Performing Lab: Notes/Report: THC POS MICHELA neg MOP (OPI) neg AMP neg MET neg BAR neg BZO POS MDMA neg MTD neg OXY neg PCP neg BUP POS TCA neg FTY neg 14 Panel Urine Drug Screen Reviewed date:07/08/2025 01:45:45 PM Interpretation: Performing Lab: Notes/Report: THC POS MICHELA neg MOP (OPI) neg AMP neg MET neg BAR neg BZO POS MDMA neg MTD neg OXY neg PCP neg BUP POS TCA neg FTY neg 12 Panel Urine Drug Screen Reviewed date:12/18/2024 02:47:13 PM Interpretation: Performing Lab: Notes/Report: THC POS MICHELA neg MOP (OPI) neg AMP neg MET neg BAR neg BZO neg MDMA neg MTD neg OXY neg PCP neg BUP POS 12 Panel Urine Drug Screen Reviewed date:01/16/2025 03:14:36 PM Interpretation: Performing Lab: Notes/Report: THC POS MICHELA neg MOP (OPI) neg AMP neg MET neg BAR neg BZO neg MDMA neg MTD neg OXY neg PCP neg BUP POS PDF Report Reviewed date:03/03/2025 08:35:18 AM Interpretation: Performing Lab:[facility], [address] [place] [address], [facility][Note 3] - [phone], Director - Rolando Notes/Report: [facility], [facility] FLEX or MAT drug testing: -Technical component - Data analysis performed at [address], [address]. [phone]. Graphics Programmer Tracey Sellers MD PDF Report1 LCLS 14 Panel Urine Drug Screen Reviewed date:08/01/2025 01:15:17 PM Interpretation: Performing Lab: Notes/Report: THC POS MICHELA neg MOP (OPI) neg AMP neg MET neg BAR neg BZO neg MDMA neg MTD neg OXY neg PCP neg BUP POS TCA neg FTY neg 14 Panel Urine Drug Screen Reviewed date:07/23/2025 01:26:53 PM Interpretation: Performing Lab: Notes/Report: THC POS MICHELA neg MOP (OPI) neg AMP neg MET neg BAR neg BZO POS MDMA neg MTD neg OXY neg PCP neg BUP POS TCA neg FTY neg 12 Panel Urine Drug Screen Reviewed date:03/04/2025 [...] POS 12 Panel Urine Drug Screen Reviewed date:12/12/2024 09:05:47 AM Interpretation: Performing Lab: Notes/Report: THC POS MICHELA neg MOP (OPI) neg AMP neg MET neg BAR neg BZO POS MDMA neg MTD neg OXY neg PCP neg BUP neg Comprehensive Drug Analysis, Urine Reviewed date:03/03/2025 08:35:18 AM Interpretation: Performing Lab:[facility], [address] [place] [address], Phone - [phone], Director - Rolando Notes/Report: [facility], [facility] FLEX or MAT drug testing: -Technical component - Data analysis performed at [facility], [address] [place] [address], [address]. [phone]. Graphics Programmer Tracey Sellers MD Summary Report (Summary) FINAL [...] test is not intended to distinguish between oultp-2-ajkrghkctkqevssrirma, the predominant form of THC in most herbal or marijuana-based products, and vzvdj-0-ztcdaoxekyhdzbcsepns. Buprenorphine 255 ng/mg creat Norbuprenorphine 353 ng/mg [...] . 12 Panel Urine Drug Screen Reviewed date:02/19/2025 10:09:19 AM Interpretation: Performing Lab: Notes/Report: THC POS MICHELA neg MOP (OPI) neg AMP neg MET neg BAR neg BZO neg MDMA neg MTD neg OXY neg PCP neg BUP POS Buprenorphine and Metabolite (Urine test) Reviewed date:07/30/2025 07:57:03 AM Interpretation: Performing Lab:[facility], [address] [facility], [place], [place], Phone - [phone], Director - PhDAbudu Notes/Report: Clinical Information:[id number] LM Buprenorphine Positive Confirmation p erformed by Mass Spectrometry Buprenorphine Positive Buprenorphine Conf, MS, UR 329 Cutoff=10 ng/m L Norbuprenorphine Positive Norbuprenorphine Conf, MS, UR 946 Cutoff=10 ng/mL Reason For Referral Reason OUD, high PHQ, refer red to psych, as well. Diagnosis 1 Opioid use disorder (F11.99) Referral Organization [facility] Referring Provider First Name Martinez Referring Provider Last Name Dionte [facility]erred Provider [facility] Clinical Notes Kinga Moses 12/12/2024 02:58:53 PM [...] 12-26-24. Referral Priority Routine Reason Psychotherapy Peer Director Of Philanthropy Diagnosis 1 Opioid use disorder (F11.99) Diagnosis 2 MDD (major depressiv e disorder) (F32.9) Diagnosis 3 MIKE (generalized anx iety disorder) (F41.1) Referral Organization [facility] Referring Provider First Name Ann Referring Provider Last Name Sandra [facility] Referred Provider [facility] General Notes Ann Flores 01:55:17 PM >Client doesn't have reliable transportation, but is interested in having telehealth for therapy, and having a peer investment recovery technician that she can talk to on phone or who can come to see her at her home if possible. Thanks. Clinical Notes Pari Souza 10:29:24 AM >Sent message to campus supervisor of ACT programming to see if peer recovery coaches can go to client homes for visits/treatment plan as primary method of contact. Will await response.Harley Michelle R 12/31/2024 11:46:34 AM >Call to client to discuss referral and availability of peer recovery coaches/therapy. No answer, LVM requesting call back., Pari Souza Martin 01/07/2025 10:49:23 AM >Call to client, no answer, LVM. Client calls back quickly and this clinician describes nature of call. Client states she has all the information regarding the therapy program at [place] and peer recovery coaches and is thinking about enrolling at this time. Please see other note for more information. Referral Priority Routine Reason Peer Recovery Specia list - Opioid Use Disorder Diagnosis 1 Opioid use disorder (F11.99) Referral Organization [facility] Referring Provider First Name Ann Referring Provider Last Name Sandra Referring Provider Speciality Psychiatry Referred Provider Specialty [facility] Clinical Notes Kinga Moses 05/22/2025 10:31:04 AM >email sent to the recovery team. HN asking if the recovery team could reach out to the client to assist with getting the client enrolled with a investment recovery technician. Referral Priority Routine Reason Family and individua l therapy Diagnosis 1 MDD (major depressiv e disorder) (F32.9) Diagnosis 2 MIKE (generalized anx iety disorder) (F41.1) Referral Organization [facility] Referring Provider First Name Ann Referring Provider Last Name Sandra Referring Provider Speciality Psychiatry Referred Provider Specialty [facility] Clinical Notes Kinga Moses 05/22/2025 10:40:01 AM >HN called the client to inform her about the email asking for a investment recovery technician. HN also working on the referral for therapy. HN called the client at 10:40, HN provided the client with the number to [facility] to complete the intake for therapy and to get their first patient appointment set up. Client stated she was going to call on 05-22-25 to complete the enrollment process. HN also explained the same directions to Anni Au. Referral Priority Routine Reason PCP Diagnosis 1 Opioid use disorder (F11.99) Referral Organization [facility] Referring Provider First Name Hilda Referring Provider Last Name Toño Referring Provider Speciality Psychiatry Referred Provider Specialty [facility] Clinical Notes Kathie Vasquez 07/01/2025 09:28:52 AM > Dietetic Assistant called and spoke with client and provided necessary steps for client to get connected to PCP service at [facility]. Client was agreeable to this and agrees to call when ready Referral Priority Routine Medications Medication SIG (Take, Route, Frequency, Duration) Notes Start Date End Date Status QUEtiapine Fumarate 200 MG 1 tablet Orally Once a day; Duration: 30 days As needed Active Buprenorphine HCl-Naloxone HCl 8-2 MG 1 tablet under the tongue and allow to dissolve Sublingual 3 times a day; Duration: 21 days 08/02/2025 Active Sertraline HCl 100 MG 2 tablets (200 mg) Orally Once a day; Duration: 30 days Active hydrOXYzine Pamoate 25 MG 1 - 2 capsules up to 3 times a day as needed for anxiety (max 100 mg/day) Orally Once a day; Duration: 30 days Active Prazosin HCl 2 MG 1 capsule at bedtime Orally Once a day; Duration: 30 days Active buPROPion HCl ER (XL) 300 MG 1 tablet in the morning Orally Once a day; Duration: 30 days Active LORazepam 1 MG 1 tablet at bedtime as needed Orally 3 times a day As needed Active Social History Tobacco Use: Social History Observation Description Date Details (start date - stop date) Current Smoker NA - NA Sex Assigned At : Social History Observation Description Sex Assigned At Female PRAPARE Question Answer Notes Date Completed/Updated: 12/12/2024 What is your current housing situation? I do not have housing (staying with others, in a hotel, in a care home, living outside on the street, on a [...] phone, visiting friends or family, going to spiritism or club meetings) Less than once a week How stressed are you? Stress is when someone feels tense, nervous, anxious, or can\t sleep at night because their mind is troubled Very much In the past year have you sp ent more than 2 nights in a row in a correction, penitentiary, prison center, or juvenile correctional facility? Yes Do you feel physically and e motionally safe where you currently live? Unsure In the past year, have you b een afraid of your partner or ex-partner? No PRAPARE Score: 8 Tobacco Control (Standard) Question Answer Notes Tobacco use: Current every day smoker Additional Findings: Tobacco user Moderate cigar ette smoker (10-19 cigs/day) Section Notes: - - - - - - - - - - - ADDITIONAL SOCIAL HISTORY 12/16/2024: - - - - - - - - - - - PERSONAL BACKGROUND HISTORY Describe childhood- Mom and Dad fought all of the time, grew up with 6 siblings. 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 Legal History- Hx of drug-related charges Spiritual Affiliation- Anabaptism Other Social History - Currently living with [...] 3 at once Inpt Psych Hospitalizations - [facility] November 2024 for benzo abuse for 8 [...] Abuse/Trauma- None Education- Some college, worked on [employer] degree 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[employer], 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, 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 Legal History- Hx of drug-related charges Spiritual Affiliation- Anabaptism Other Social History - Currently living with [...] 3 at once In Psych Hospitalizations - [facility] November 2024 for benzo abuse for 8 [...] 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 Legal History- Hx of drug-related charges Spiritual Affiliation- Anabaptism Other Social History - Currently living with [...] Lorazepam-took 3 at once In Psych Hospitalizations [facility] November 2024 for benzo abuse for 8 [...] 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 Legal History- Hx of drug-related charges Spiritual Affiliation- Anabaptism Other Social History - Currently living with [...] 3 at once Inpt Psych Hospitalizations - [facility] November 2024 for benzo abuse for 8 [...] Abuse/Trauma- None Education- Some college, worked on [employer] 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[employer], 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 Legal History- Hx of drug-related charges Spiritual Affiliation- Anabaptism Other Social History - Currently living with [...] 3 at once Inpt Psych Hospitalizations - [facility] November 2024 for benzo abuse for 8 [...] Abuse/Trauma- None Education- Some college, worked on [employer] degree 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[employer], 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 Legal History- Hx of drug-related charges Spiritual Affiliation- Anabaptism Other Social History - Currently living with [...] 3 at once Inpt Psych Hospitalizations - [facility] November 2024 for benzo abuse for 8 [...] 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[employer], 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 Legal History- Hx of drug-related charges Spiritual Affiliation- Anabaptism Other Social History - Currently living with [...] 3 at once Inpt Psych Hospitalizations - [facility] November 2024 for benzo abuse for 8 [...] Abuse/Trauma- None Education- Some college, worked on [employer] degree 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[employer], 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 Legal History- Hx of drug-related charges Spiritual Affiliation- Anabaptism Other Social History - Currently living with [...] 3 at once Inpt Psych Hospitalizations - [facility] November 2024 for benzo abuse for 8 [...] 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 Legal History- Hx of drug-related charges Spiritual Affiliation- Anabaptism Other Social History - Currently living with [...] 3 at once In Psych Hospitalizations - [facility] November 2024 for benzo abuse for 8 [...] 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3) Active confirmed Problem Major depressive disorder (149575612) MDD (major depressive disorder) (F32.9) Active confirmed Problem Overweight (278638441) Overweight (BMI 25.0-29.9) (E66.3) Active confirmed Problem Opioid use disorder (9616609199) Opioid use disorder (F11.99) Active confirmed Vital Signs Heart Rate 62 /min 08/01/2025 Temperature 98.4 degrees Fahrenheit 08/01/2025 Respiratory Rate 16 /min 08/01/2025 Blood pressure diastolic 60 mm Hg 08/01/2025 Oximetry 95 % 08/01/2025 Height 66in in 08/01/2025 Blood pressure systolic 116 mm Hg 08/01/2025 Weight 203.8lbs lbs 08/01/2025 BMI 32.89 kg/m2 08/01/2025 Encounters Encounter Location Date Provider Diagnosis [address] [place] [address] 12/12/2024 Martinez Rapp Opioid use disorder F11.99 [facility] [address], [place] [address] 12/12/2024 Laure Sarmiento [address] [address] 12/16/2024 Ann Flores MDD (major depressive disorder) F32.9 ; MIKE (generalized anxiety disorder) F41.1 ; Sleep disturbance G47.9 ; Opioid use disorder F11.99 and Medication management Z79.[address] [address] 12/18/2024 Wendy Hartman Opioid use disorder F11.99 and Nicotine dependence, unspecified, uncomplicated F17.[address] [address] 01/01/2025 Nyasia Steele Opioid use disorder F11.99 ; Nutritional counseling Z71.3 ; Dietary counseling Z71.3 and Overweight (BMI 25.0-29.9) E66.3 [facility] [address] [place] [address] 01/07/2025 Pari Souza MDD (major depressive disorder) F32.9 [facility] [address], [place] [address] 01/16/2025 Hebert Shaw Opioid use disorder F11.99 and Overweight (BMI 25.0-29.9) E66.[address] [address] 01/21/2025 Ann Sabblut MIKE (generalized anxiety disorder) F41.1 ; MDD (major depressive disorder) F32.9 ; Sleep disturbance G47.9 ; Opioid use disorder F11.99 and Medication management Z79.[address] [address] 02/19/2025 Wendy Szlufik Over weight E66.3 and Opioid use disorder F11.[address] [address] 02/25/2025 Ann Sabblut MIKE (generalized anxiety disorder) F41.1 ; MDD (major depressive disorder) F32.9 ; Sleep disturbance G47.9 ; Opioid use disorder F11.99 and Medication management Z79.[address] [address] 03/04/2025 Wendy Szlufik Over weight E66.3 and Opioid use disorder F11.[address] [address] 03/27/2025 Ann Sabblut Over weight E66.3 ; MIKE (generalized anxiety disorder) F41.1 ; MDD (major depressive disorder) F32.9 ; Sleep disturbance G47.9 ; Opioid use disorder F11.99 and Medication management Z79.[address] [address] 04/21/2025 Ann Sabblut Over weight E66.3 ; MIKE (generalized anxiety disorder) F41.1 ; MDD (major depressive disorder) F32.9 ; Sleep disturbance G47.9 ; Opioid use disorder F11.99 and Medication management Z79.[address] [address] 05/21/2025 Ann Sabblut Over weight E66.3 ; MIKE (generalized anxiety disorder) F41.1 ; MDD (major depressive disorder) F32.9 ; Sleep disturbance G47.9 ; Opioid use disorder F11.99 and Medication management Z79.899 [facility] [address] [place] [address] 06/30/2025 Hilda Toño Opioid use disorder F11.[address] [address] 07/01/2025 Ann Sabblut Over weight E66.3 ; MIKE (generalized anxiety disorder) F41.1 ; MDD (major depressive disorder) F32.9 ; Sleep disturbance G47.9 ; Opioid use disorder F11.99 and Medication management Z79.[address] [address] 07/08/2025 Hilda Toño Opioid use disorder F11.99 and Over weight E66.[address] [address] 07/23/2025 Hilda Toño Opioid use disorder F11.[address] [address] 07/28/2025 Ann Sabblut Over weight E66.3 ; MIKE (generalized anxiety disorder) F41.1 ; MDD (major depressive disorder) F32.9 ; Sleep disturbance G47.9 ; Opioid use disorder F11.99 and Medication management Z79.[address] [address] 08/01/2025 Joan Joyce Opioid use disorder F11.99 and Over weight E66.[address] [address] 01/17/2025 Ann Sabblut MDD (major depressive disorder) F32.9 ; MIKE (generalized anxiety disorder) F41.1 and Sleep disturbance G47.[address] [address] 02/20/2025 Ann Sabblut MDD (major depressive disorder) F32.9 ; Sleep disturbance G47.9 and MIKE (generalized anxiety disorder) F41.[address] [place] [address] 03/14/2025 [facility] [address] [place] [address] 03/17/2025 [facility] [address] [facility] [place] [address] 03/18/2025 [facility] [address] [place] [address] 03/19/[address] [place] [address] 03/19/2025 [facility] [address] [place] [address] 03/19/2025 Naysia Steele [address] [place] [address] 03/19/[address] [place] [address] 03/21/[address] [place] [address] 03/24/[address] [place] [address] 03/26/2025 Ann Flores [address] [place] [address] 06/24/2025 Ann Flores [address] [place] [address] 07/04/2025 Ann Flores [address] [place] [address] 08/01/2025 Brianda Benavides Opioid use disorder F11.99 Assessments Encounter Date Diagnosis (ICD Code) Assessment Notes Treatment Notes Treatment Clinical Notes Section Notes 01/01/2025 Nutritional counseling (ICD-10 - Z71.3) 01/01/2025 Opioid use disorder (ICD-10 - F11.99) 04/21/2025 Over weight (ICD-10 - E66.3) 08/01/2025 Opioid use disorder (ICD-10 - F11.99) 08/01/2025 Over weight (ICD-10 - E66.3) 08/01/2025 Opioid use disorder (ICD-10 - F11.99) 07/01/2025 Over weight (ICD-10 - E66.3) 07/28/2025 Over weight (ICD-10 - E66.3) 03/04/2025 Over weight (ICD-10 - E66.3) 03/04/2025 Opioid use disorder (ICD-10 - F11.99) 01/17/2025 MDD (major depressive disorder) (ICD-10 - F32.9) 01/16/2025 Overweight (BMI 25.0-29.9) (ICD-10 - E66.3) 01/16/2025 Opioid use disorder (ICD-10 - F11.99) 07/23/2025 Opioid use disorder (ICD-10 - F11.99) 07/08/2025 Over weight (ICD-10 - E66.3) 07/08/2025 Opioid use disorder (ICD-10 - F11.99) 06/30/2025 Opioid use disorder (ICD-10 - F11.99) 01/21/2025 MIKE (generalized anxiety disorder) (ICD-10 - F41.1) 05/21/2025 Over weight (ICD-10 - E66.3) 02/25/2025 MIKE (generalized anxiety disorder) (ICD-10 - F41.1) 02/20/2025 MDD (major depressive disorder) (ICD-10 - F32.9) 02/19/2025 Over weight (ICD-10 - E66.3) 02/19/2025 Opioid use disorder (ICD-10 - F11.99) 01/07/2025 MDD (major depressive disorder) (ICD-10 - F32.9) 12/18/2024 Nicotine dependence, unspecified, uncomplicated (ICD-10 - F17.200) 12/18/2024 Opioid use disorder (ICD-10 - F11.99) 12/16/2024 MIKE (generalized anxiety disorder) (ICD-10 - F41.1) 12/16/2024 MDD (major depressive disorder) (ICD-10 - F32.9) 12/12/2024 Opioid use disorder (ICD-10 - F11.99) 03/27/2025 Over weight (ICD-10 - E66.3) 03/27/2025 MIKE (generalized anxiety disorder) (ICD-10 [place] F41.1) [place] client is getting prescribed lorazepam and oxycodone/APAP by Dr. Keaton Booth. Opioid and benzodiazepine use is not reccomended for individuals with substance use disorders. 12/16/2024 Sleep disturbance (ICD-10 - G47.9) 02/25/2025 MDD (major depressive disorder) (ICD-10 - F32.9) 01/21/2025 MDD (major depressive disorder) (ICD-10 - F32.9) 01/17/2025 MIKE (generalized anxiety disorder) (ICD-10 - F41.1) 05/21/2025 MIKE (generalized anxiety disorder) (ICD-10 - F41.1) 07/28/2025 MIKE (generalized anxiety disorder) (ICD-10 - F41.1) Lorazepam prescribed by PCP 04/21/2025 MIKE (generalized anxiety disorder) (ICD-10 - F41.1) 07/01/2025 MIKE (generalized anxiety disorder) (ICD-10 - F41.1) 01/01/2025 Dietary counseling (ICD-10 - Z71.3) 02/20/2025 Sleep disturbance (ICD-10 - G47.9) 04/21/2025 MDD (major depressive disorder) (ICD-10 - F32.9) Starting bupropion XL for depression and to aid in appetite suppression. 07/01/2025 MDD (major depressive disorder) (ICD-10 - F32.9) Starting bupropion XL for depression and to aid in appetite suppression. 07/28/2025 MDD (major depressive disorder) (ICD-10 - F32.9) 01/17/2025 Sleep disturbance (ICD-10 - G47.9) 01/21/2025 Sleep disturbance (ICD-10 - G47.9) 02/25/2025 Sleep disturbance (ICD-10 - G47.9) 05/21/2025 MDD (major depressive disorder) (ICD-10 - F32.9) Starting bupropion XL for depression and to aid in appetite suppression. 01/01/2025 Overweight (BMI 25.0-29.9) (ICD-10 - E66.3) 02/20/2025 MIKE (generalized anxiety disorder) (ICD-10 - F41.1) 03/27/2025 MDD (major depressive disorder) (ICD-10 - F32.9) Starting bupropion XL for depression and to aid in appetite suppression. 12/16/2024 Opioid use disorder (ICD-10 - F11.99) Recommend a combination of 12-step programs, outpatient programs, and psychotherapy to maintain recovery in the outpatient setting. 03/27/2025 Sleep disturbance (ICD-10 - G47.9) Starting prazosin for nightmares. 12/16/2024 Medication management (ICD-10 - Z79.899) May self-administer medications or be administered own oral medications per [facility] protocols. Provided informed consent with understanding of side effects, adverse effects, risks and benefits as well as alternative treatments as previously discussed and with the above recommended medications & other aspects of the treatment program. Agrees to return sooner if symptoms worsen or suicidal or homicidal ideations occur. 02/25/2025 Opioid use disorder (ICD-10 - F11.99) Recommend a combination of 12-step programs, outpatient programs, and psychotherapy to maintain recovery in the outpatient setting. 01/21/2025 Opioid use disorder (ICD-10 - F11.99) Recommend a combination of 12-step programs, outpatient programs, and psychotherapy to maintain recovery in the outpatient setting. 05/21/2025 Sleep disturbance (ICD-10 - G47.9) Starting prazosin for nightmares. 07/28/2025 Sleep disturbance (ICD-10 - G47.9) 07/01/2025 Sleep disturbance (ICD-10 - G47.9) Starting prazosin for nightmares. 04/21/2025 Sleep disturbance (ICD-10 - G47.9) Starting prazosin for nightmares. 04/21/2025 Opioid use disorder (ICD-10 - F11.99) [...] recommended for individuals with substance use disorders. 07/01/2025 Opioid use disorder (ICD-10 - F11.99) Recommend a combination of 12-step programs, outpatient programs, and psychotherapy to maintain [place]. [place] - client continues to get lorazepam regularly prescribed by Dr. Keaton Booth. Oxycodone/APAP was last prescribed on 05/19/2025 and client has started going back to the MAT clinic for Suboxone. Opioid and benzodiazepine use is not recommended for individuals with substance use disorders. 07/28/2025 Opioid use disorder (ICD-10 - F11.99) 01/21/2025 Medication management (ICD-10 - Z79.899) May self-administer medications or be administered own oral medications per [facility] protocols. Provided informed consent with understanding of [...] recommended for individuals with substance use disorders. 02/25/2025 Medication management (ICD-10 - Z79.899) May self-administer medications or be administered own oral medications per [facility] protocols. Provided informed consent with understanding of side effects, adverse effects, risks and benefits as well as alternative treatments as previously discussed and with the above recommended medications & other aspects of the treatment program. Agrees to return sooner if symptoms worsen or suicidal or homicidal ideations occur. 03/27/2025 Opioid use disorder (ICD-10 - F11.99) Recommend a combination of 12-step programs, outpatient programs, and psychotherapy to maintain recovery in the [place]. [place] - client is getting prescribed lorazepam and oxycodone/APAP by Dr. Keaton Booth. Opioid and benzodiazepine use is not reccomended for individuals with substance use disorders. 03/27/2025 Medication management (ICD-10 - Z79.899) May self-administer medications or be administered own oral medications per [facility] protocols. Provided informed consent with understanding of side effects, adverse effects, risks and benefits as well as alternative treatments as previously discussed and with the above recommended medications & other aspects of the treatment program. Agrees to return sooner if symptoms worsen or suicidal or homicidal ideations occur. 05/21/2025 Medication management (ICD-10 - Z79.899) May self-administer medications or be administered own oral medications per [facility] protocols. Provided informed consent with understanding of side effects, adverse effects, risks and benefits as well as alternative treatments as previously discussed and with the above recommended medications & other aspects of the treatment program. Agrees to return sooner if symptoms worsen or suicidal or homicidal ideations occur. 07/01/2025 Medication management (ICD-10 - Z79.899) May self-administer medications or be administered own oral medications per [facility] protocols. Provided informed consent with understanding of [...] or be administered own oral medications per [facility] protocols. Provided informed consent with understanding of side effects, adverse effects, risks and benefits as well as alternative treatments as previously discussed and with the above recommended medications & other aspects of the treatment program. Agrees to return sooner if symptoms worsen or suicidal or homicidal ideations occur. 07/28/2025 Medication management (ICD-10 - Z79.899) May self-administer medications or be administered own oral medications per [facility] protocols. Provided informed consent with understanding of [...] understanding that she needs to call the [facility] housing lines and attempt to fill out paperwork for both [facility] and will reach out once [...] office with questions or concerns. Patient may self-administer their own medications or may self-administer their own oral medications per [facility] Protocol. 01/01/2025 Other Patient agrees to take [...] availability of peer recovery coaches and OP therapists via [facility]. Client states she understands nature of the referral. States she is still pondering if she wants to utilize either program support assistant at this time. Client appears to be [...] office with questions or concerns. Patient may self-administer their own medications or may self-administer their own oral medications per [facility] Protocol. 02/19/2025 Other Discussed MAR program expectations. [...] office with questions or concerns. Patient may self-administer their own medications or may self-administer their own oral medications per [facility] Protocol. 03/04/2025 Other Discussed MAR program expectations. [...] office with questions or concerns. Patient may self-administer their own medications or may self-administer their own oral medications per [facility] Protocol. 06/30/2025 Other Patient agrees to take medication as [...] office with questions or concerns. Patient may self-administer their own medications or may self-administer their own oral medications per [facility] Protocol. 07/08/2025 Other Patient agrees to take medication as [...] office with questions or concerns. Patient may self-administer their own medications or may self-administer their own oral medications per [facility] Protocol. 07/23/2025 Other Patient agrees to take medication as [...] office with questions or concerns. Patient may self-administer their own medications or may self-administer their own oral medications per [facility] Protocol. 08/01/2025 Other Patient agrees to take medication as [...] office with questions or concerns. Patient may self-administer their own medications or may self-administer their own oral medications per [facility] Protocol. Plan Of Treatment No Information Insurance Providers Payer Name Payer Address Payer Phone Subscriber Number Group Number Insured Name Patient Relationship to Insured Coverage Start Date Coverage End Date [facility] [address] [place] [address] [id number] Jackie Alvarez Self - patient is the insured 5 [address] [place] [address] [id number] Ruba Alvarezy Self - patient is the insured 5 5 [facility] [address] [place] [address] [phone] [id number] Ruba Alvarezy Self - patient is the insured [address] [place] [address] [id number] Ruba Alvarezy Self - patient is the insured 5 [employer] [address] [place] [place] [address] [id number] Ruba Alvarezy Self - patient is the insured 5 5 MEDICAID [employer] [address] [place] [address] [id number] Jackie Alvarez Self - patient is the insured 5 5 [employer] [address] [place] [address] [id number] Jackie Alvarez Self - patient is the insured 5 Medical (General) History Medical History History ICD Code Opiate Use Disorder Head Injury 2008 Surgical History Surgery Date(Month/Year) hysterectomy Hospitalization History Reason Date(Month/Year) [place] detox 10/2024
--- NOTE | 2025-08-11 07:21 | WPDHPUPDATE1 ---
History and Physical Update Update Date/Time: 08/11/25 07:21 History and Physical has been reviewed, including an updated exam of the patient. There are NO changes in the patient's condition. Risks, benefits, and alternatives have been discussed and questions answered. Patient agrees to proceed with procedure.
--- NOTE | 2025-08-11 07:22 | W.PM.PROC2 ---
Procedure Note - Detailed Date of Procedure 08/11/25 Pre-op Diagnosis Lumbar radiculopathy Post-op Diagnosis Same Procedure Performed Bilateral Lumbar Transforaminal Epidural Steroid Injection under Fluoroscopic Guidance and with Contrast Control at L4-5. Surgeon Gurmeet Rodrigues MD Anesthesia Local Description of Procedure INFORMED CONSENT: Risks, benefits and alternatives to the procedure were discussed in detail with the patient who expressed explicit understanding and consent to proceed. Patient was informed verbally and in written form regarding the risks associated with the procedure including the low risk of serious infection, bleeding/bruising, allergic reaction, nerve or organ injury, paralysis, procedural site pain or discomfort, worsening pain and/or mobility, failure to treat and/or disfigurement. The patient expressed explicit understanding and consent to proceed. All materials required for the procedure were available prior to procedure start. Site and side was marked prior to procedure and confirmed in the presence of the patient. PROCEDURE IN DETAIL: The patient was brought to the procedural suite and placed in the prone position. Patient was made comfortable with use of pillows under the head/chest, hips and ankles. Skin overlying the injection site was prepared broadly with ChloraPrep applicator and draped in a sterile manner. Aseptic technique was employed throughout. The endplates of the vertebral body at the site of interest were aligned in the AP view. Ipsilateral oblique angulation was utilized to better visualize the neuroforamen of interest. Local anesthesia was established by infiltration with approximately 5 mL of 0.5% PF lidocaine via a 1-1/2 inch 27-gauge needle. A 22-gauge 5.0 inch Priscila (pencil point) spinal needle was advanced until the needle approached the 6 o'clock position on the pedicle just superior to the exiting nerve root. on the right at L4-5. Lateral view was utilized to confirm appropriate position of the needle tip within the superior and posterior portion of the respective foramen. In an AP view, 1 mL of Omnipaque 300 contrast medium was injected after negative aspiration for CSF, blood or other bodily fluid, showing appropriate neurogram without evidence of intravascular or intrathecal spread of contrast. Digital subtraction imaging was used with an additional 1ml of the same contrast medium to confirm absence of intravascular contrast spread. A 1mL solution containing 5 mg of dexamethasone was injected after negative repeat aspiration. Appropriate spread of the injectate was confirmed with washout of previously injected contrast. No parasthesias were elicited. Needle was removed completely intact without difficulty. The same exact procedure was repeated for all remaining levels on the contralateral side, left L4-5 neuroforamen, modified as necessary to accommodate for the new target location with identical findings and results and no evidence of complication. Images were saved and documented in the patient chart. Patient's skin was cleaned and sterile bandage applied. The patient tolerated the procedure well. The patient was transported to the recovery area in stable condition where they were observed for an appropriate amount of time prior to discharge, without evidence of complication. The patient was instructed to avoid excessive activity for the next 48 hours, including climbing and frequent use of stairs. Showers only for 48 hours. They were instructed not to drive or operate heavy machinery for 24 hours. They are to monitor for severe headaches, fevers, chills, night sweats, erythema/swelling at the site or any other signs of infection, bleeding/bruising, bowel or bladder changes as well as new pain, weakness or numbness in the upper or lower extremity. Should they notice these changes, they are instructed to call our office immediately or report directly to the nearest Emergency Department if no answer or if after posted office hours. COMPLICATIONS: None COMMENTS: None CONTRAST WASTED: 26 mL Omnipaque 300. STEROID WASTED: 0 mg of dexamethasone. Complications No immediate complications Condition Stable Disposition Same day [facility] Billing Surgery - Charge Forward: Surgery Billing
[2025-08-11 07:26] VITALS: BP 137/86; PULSE 55; RESP 16; TEMP 37.2; O2SAT 96
[2025-08-11 07:35] VITALS: BP 163/83; PULSE 57; RESP 11; O2SAT 95
[2025-08-11] MEDS: LIDOCAINE 1% PF INJ 5 ML VIAL INFILTRATE (07:40)
[2025-08-11] MEDS: LIDOCAINE 2% PF LOCAL INJ 5 ML VIAL 2 ML INFILTRATE (07:41)
[2025-08-11 07:42] VITALS: BP 154/80; PULSE 58; RESP 17; O2SAT 96
[2025-08-11] MEDS: DEXAMETHASONE SODIUM PHOSP/PF 10 MG/ML 1 ML VIAL (07:42)
[2025-08-11 07:46] VITALS: BP 154/80; PULSE 58; RESP 18; O2SAT 97
[2025-08-11 07:50] VITALS: BP 140/89; PULSE 60; RESP 18; O2SAT 100
== END 2025-08-11 08:04 | disposition home or self-care (01) ==
PROVIDERS: PCP Family Medicine Adolescent Medicine; Visit Provider Anesthesiology Pain Medicine
PROC: (CPT 64483; principal; 2025-08-11 07:30)
DX: M47.26 Other spondylosis with radiculopathy, lumbar region (principal); M48.061 Spinal stenosis, lumbar region without neurogenic claudication
CPT/HCPCS: 64483; 99199

== ENCOUNTER 2025-08-11 14:12 | Outpatient (CLI) | payer BC, MEDICAID, SELFPAY ==
--- OUTSIDE RECORDS SUMMARY | 2016-03-01 13:41 | XMS_ITS | Continuity of Care Document ---
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 [address] [place] [address], [id number], [place]. tel:[phone] [facility], [address] [place] [address], [id number], tel:[phone] [facility] No Information Boni Ribeiro. [address], [place], [id number], . tel:[phone] Family History Family Member Type Diagnosis Age At Onset No Information Payers Payer name Insurance type Covered alliance party ID Authoriza tion(s) No Information Social [...]
--- NOTE | ~2025-08-11 | MM_ITS ---
EXAMINATION: MM screening [facility] BI w eleonora HISTORY: Screening TECHNIQUE: Craniocaudal and mediolateral oblique 3-D tomosynthesis images were obtained and synthetic 2-D images were generated. CAD analysis was submitted and interpreted. COMPARISON: Comparison to multiple prior studies sequentially, with oldest reviewed study dated 03/12/2016. BREAST PARENCHYMAL COMPOSITION: Not dense: There are scattered areas of fibroglandular density. FINDINGS: There is no evidence of suspicious mass, calcification, or architectural distortion to suggest malignancy in either breast. There has been no suspicious interval change. IMPRESSION: 1. No mammographic evidence of malignancy. 2. Recommend routine screening mammography in one year. BI-RADS Category 1: Negative Reviewed, dictated and finalized at location B.
--- OUTSIDE RECORDS SUMMARY | 2025-08-11 15:51 | XMS_ITS | Encounter Summary ---
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
--- OUTSIDE RECORDS SUMMARY | 2025-08-11 15:51 | XMS_ITS | Clinical Summary ---
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
--- OUTSIDE RECORDS SUMMARY | 2025-08-11 15:51 | XMS_ITS | Clinical Summary ---
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
--- OUTSIDE RECORDS SUMMARY | 2025-08-11 15:52 | XMS_ITS | Data Portability ---
Author Organization [facility] [place] Address [address] [place] [address] [place] [address] Care Team Providers Care Wax Pumper Name Role Phone CHELSEA PARTIDA Primary Care Provider Assessment Encounter Date Assessment Date Assessment LastModified by Organization Details LastModified Time 02/11/2025 02/11/2025 Annual gynecological exam performed. Patient will come back in a year unless there are new symptoms. elina Not available 02/11/2025 15:49:39 Plan of Treatment Reminders Order Date Submit Date Provider Last Modified By Organization Details Last Modified Time Details Appointments None recorded. Lab None recorded. Referral None recorded. Procedures None recorded. Surgeries None recorded. Imaging MAMMO, screening, digital, bilateral 2024 025 [email or web address] [facility], [address], [place], [address], 18:37:47 DEXA, axial skeleton + vertebral fracture assessment 2024 025 BAILEY [facility], [address], [place], [address], 16:26:41 Medication Orders None recorded. Patient TargetsNo targets recorded. Patient InstructionsNo instructions recorded. Reason for Referral None Reported. Results Created Date Observation Date Name Description Value Unit Range Abnormal Flag Note LastModifiedBy Organization Detail LastModifiedTime 07/25/20 25 07/24/2025 DEXA, axial skele ton + verte bral fract ure asses sment No observ ation record ed. [address] [facility] [address], [place], [address], 07/31/2025 09:36:42 Result Notes None recorded. 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) (routine) w/o abn findings;R ecorded Elsewhere: No Locatio n: [facility]: EHR Chroni c: N Practice ID: 0001 Billa ble Time: 12:30:00 PM Not Available [facility] 0 21:23:56 Screening for malignant neoplasm of rectum Active 2014 Encounter for screening for malignant neoplasm of rectum;Rec orded Elsewhere: No Locatio n: [facility]: EHR Chroni c: N Practice ID: 0001 Billa ble Time: 12:30:00 PM Not Available [facility] 0 21:23:[address] Concept Active 2014 Encntr for general adult medical exam w/o abnormal findings;R ecorded Elsewhere: No Locatio n: [facility]: EHR Chroni c: N Practice ID: 0001 Billa ble Time: 12:30:00 PM Not Available [facility] 0 21:23:56 Atrophic vaginitis 61218118 Active 2015 Postmenopa usal atrophic vaginitis; Recorded Elsewhere: No Locatio n: [facility]: EHR Chroni c: N Practice ID: 0001 Billa ble Time: 08:30:00 AM Not Available [facility] 0 21:23:56 Right lower quadrant pain 632295797 Active 2015 RLQ pain;Recor ded Elsewhere: No Locatio n: [facility]: EHR Chroni c: N Practice ID: 0001 Billa ble Time: 08:30:00 AM Not Available [facility] 0 21:23:56 Dysuria 43318827 Active 2016 Dysuria;Re corded Elsewhere: No Locatio n: [facility]: EHR Chroni c: N Practice ID: 0001 Billa ble Time: 11:15:00 AM Not Available [facility] 0 21:23:56 Postmenop ausal bleeding 61192401 Active 2016 Postmenopa usal bleeding;R ecorded Elsewhere: No Locatio n: [facility]: EHR Chroni c: N Practice ID: 0001 Billa ble Time: 11:15:00 AM Not Available [facility] 0 21:23:56 Pain Active 2016 Other specified dyspareuni a;Recorded Elsewhere: No Locatio n: [facility]: EHR Chroni c: N Practice ID: 0001 Billa ble Time: 11:15:00 AM Not Available [facility] 0 21:23:56 Backache 475277891 Active 2016 Backache;R ecorded Elsewhere: No Locatio n: [facility]: EHR Chroni c: N Practice ID: 0001 Billa ble Time: 11:15:00 AM Not Available [facility] 0 21:23:56 Finding of general energy 183178904 Active 2018 Other fatigue;Re corded Elsewhere: No Locatio n: [facility]: EHR Chroni c: N Practice ID: 0001 Billa ble Time: 02:30:00 PM Not Available [facility] 0 21:23:56 Breast finding Active 2018 Other signs and symptoms in breast;Rec orded Elsewhere: No Locatio n: [facility]: EHR Chroni c: N Practice ID: 0001 Billa ble Time: 02:30:00 PM Not Available [facility] 0 21:23:56 Pelvic and perineal pain 961848072 Active 2018 Pelvic and perineal pain;Recor ded Elsewhere: No Locatio n: [facility]: EHR Chroni c: N Practice ID: 0001 Billa ble Time: 02:30:00 PM Not Available [facility] 0 21:23:56 Problem Notes None recorded. Procedures Surgical History Date Name Laterality Status Provider Name and Address Organization Details Recorded Time 10/16/18 90 hysterectomy completed [facility] 02/11/2025 15:56:59 operative procedure on ankle completed [facility] 02/11/2025 16:06:17 tonsillectomy and adenoidectomy completed [facility] 02/11/2025 16:06:28 Imaging Results None recorded. Procedure Notes None recorded. Medical Equipment None Reported. Allergies Allergen ID Allergen Name Allergen Category Reaction Reaction Severity Criticality Documentation Date Start Date Code Code System Note Provider Name and Address Organization Details Recorded Time 49742 Product containin g penicilli n (product) medicatio n Not available Not available Not available 10/02/2020 40324 8001 SNOMED Comme nt: [facility]at [facility]; Not Available [facility] 0 14:20:37 Medications Name Sig Start Date Stop Date Status Note LastModified by Organization Details LastModified Time cyclobenz aprine 10 mg tablet take 1 tablet by oral route 2 times every day 07/08 completed Prescrib ed Elsewher e: No Locat ion: Nasrin potter [facility]ify By: mark gzumanunter DateTime : 08/25/20 17 11:15:00 AM Not Available Not Available Not Available trazodone 50 mg tablet take 1 tablet by oral route 3 times every day after meals 02/11 completed Prescrib ed Elsewher e: Yes Loca tion: Nasrin potter [facility] By: sarai monterroso DateTime : 09/29/20 15 12:30:00 PM Not Available Not Available Not Available venlafaxi ne 25 mg tablet take 1 tablet by oral route 3 times every day with food 08/25 completed Prescrib ed Elsewher e: Yes Loca tion: Nasrin potter [facility] By: rod Potter ncounter DateTime : 09/29/20 15 12:30:00 PM Not Available Not Available Not Available Ativan 0.5 mg tablet take 2 tablet by oral route 3 times every day as needed 02/11 completed Prescrib ed Elsewher e: Yes Loca tion: Nasrin potter [facility] By: sarai monterroso DateTime : 09/29/20 12:30:00 PM Not Available Not Available Not Available Bactrim DS 800 mg-160 mg tablet take 1 tablet by oral route every 12 hours 07/08 completed Prescrib ed Elsewher e: No Locat ion: Nasrin potter [facility] By: mark guzmanuntvijay DateTime : 08/25/20 17 11:15:00 AM Not Available Not Available Not Available Estrace 0.01% (0.1 mg/gram) vaginal cream insert (1G) by vaginal route every week 07/08 completed Prescrib ed Elsewher e: No Locat ion: Nasrin potter [facility] By: hina sanchez Enco unter DateTime : 08/25/20 17 03:45:00 PM Not Available Not Available Not Available hydrocodo ne 10 mg-acetam inophen 300 mg tablet take 1 tablet by oral route every 6 hours as needed 07/08 completed Prescrib ed Elsewher e: Yes Loca tion: Nasrin potter [facility] By: mark mukherjee DateTime : 09/29/20 15 12:30:00 PM Not Available Not Available Not Available sertralin e active Not Available Not Available Not Available oxycodone active Not Available Not Janneth ilable Not Available hydroxyzi ne HCl active Not Available Not Available Not Available quetiapin e active Not Available Not Available Not Available Vagifem 10 mcg vaginal tablet insert 1 (10mcg) tablet by vaginal route twice a week. 07/21 completed Prescrib ed Elsewher e: No Locat ion: Nasrin potter [facility] By: hina sanchez Enco unter DateTime : 07/08/20 19 02:30:00 PM Not Available Not Available Not Available Vitals Date Recorded Body height Body mass index (BMI) Body weight Systolic And Diastolic Provider Name and Address Organization Details Last Updated DateTime 02/11/2025 167.64 cm 27.6 kg/m2 62792.3 g 144/84 mm[Hg] Nichole Mcpherson [facility] 02/11/2025 16:03:18 Social History Question Answer Notes LastModified by Organizat ion Details LastModified Time Tobacco Smoking Status Current Every Day Smoker Nichole donohue, [facility] 02/11/2025 16:05:54 In The 14 Days Before Symptom Onset, Have You Had Close Contact With A Laboratory-confirm ed COVID-19 While That Case Was Ill? No [email or web address] Information n ot available 02/11/2025 In The 14 Days Before Symptom Onset, Have You Had Close Contact With A Person Who Is Under Investigation For COVID-19 While That Person Was Ill? No [email or web address] Information not available 02/11/2025 Have You Been To An Area Known To Be High Risk For COVID-19? No [email or web address] Information not available 02/11/2025 Sex: Unknown Functional Status None recorded. Mental Status None recorded. Family History Nothing Reported Notes:Father: Hypertension, High cholesterol, Cardiovascular disease Maternal aunt: Cancer, uterine, Cancer, cervical Maternal grandfather: Cancer, lung Mother: Hypertension, Asthma Medical History Condition Response Allergies (Food, seasonal, environmental ) N Breast Cancer N Drug/Latex Allergies/Reactions Y Blood Transfusion N Dermatologic Disorders N Lung Disease N Defects or Inherited Disease N Breast Problem N Gestational Diabetes N Hematologic disorders N Anesthesia Complications N History of STI N Deep Vein Thrombosis N Polycystic ovary syndrome N Anxiety Disorder Y Autoimmune disease N Arthritis Y Infertility N Polyps N Acid Reflux (GERD) Y History of abnormal pap N Cancer N Stroke N Varicosities N Neurologic/Epilepsy N Endometriosis N High Cholesterol N Headaches N Fibromyalgia N Kidney Disease N Heart Problems N Kidney or Bladder Problems N Thyroid Problems N GI Problems N Eating Disorder N Anemia Y Art (IVF or FET) N Psychiatric Illness N Ovarian Cancer N Diabetes N Pulmonary (TB, Asthma) N Hepatitis/Liver Disease N Eczema N Urinary Tract Infection Y Abuse/Domestic Violence N Asthma N Trauma/Violence N Depression/ depression Y Heart Disease N Pre-Eclampsia N Hypertension N Osteoporosis N Thrombophilias N Gynecological History Statement/Question Response Abnormal Pap N Date of Last Colonoscopy Date of Last Mammogram Sexually Active? N STIs/STDs N Menses Monthly N Date of DEXA bone scan HPV Vaccine N Date of Last Pap Smear Current Control Method Hysterectom y Obstetrics History GPAL:G 3 P 2 0 1 2 Type Value Full Term 2 Living 2 Ectopics 1 Total 3 Past Encounters Encounter ID Performer Location Encounter Start Date Encounter Closed Date Diagnosis/Indication Diagnosis SNOMED-CT Code Diagnosis ICD10 Code Diagnosis IMO Codes Diagnosis Note [id number] [facility] [place] [address] [address] 02/11/2025 13:31:21 02/12/2025 13:59:37 Gynecologic examination 20046434 Z01.949 [id number] WWEpostmen opausalPap - done todaySTI screen - declinedMa mmogram - order givenColon cancer screening - UTDDexa - order givenRouti ne labs - UTD/PCPBP precaution s discussed, encouraged PCP f/uRTC in 1 yr or sooner if needed Do monthly self breast exams.It is advised to get annual flu shot in the fall and she could obtain at local pharmacy. If you haven't received the Tdap vaccine in the last 10 years you should obtain one as well.Have mammogram yearly, bone density every 2-3 years and stay up to date on colon cancer screening. Engage in regular exercise. Avoid tobacco and illicit drugs. This lifestyle behavior pattern will lead to less health conditions and longer life span. If BMI greater than 25 dietary consult advised.Qu estions have been answered. Screening mammography 24 230927 Z12.31 [id number] Screening for osteoporosis 040996159 Z13.820 [id number] Health Concerns Section Related Observation LastModified by Organization Detai ls LastModified Time None Recorded Concern Status LastModified by Organization Details LastModified Time None Recorded Advance Directives Directive None Recorded Payers Insurance Date Sequence Insurance Name Policy Number Policy Calderon Covered Member ID Calderon Member ID Guarantor Name 03/25/2025 1 [place] [employer] [place] [employer] Jackie Alvarez [id number] Jackie Alvarez 02/11/2025 1 [facility] - DOS ON OR AFTER 21 (MEDICAID REPLACEMENT - HMO) Jackie Alvarez [id number] Jackie Alvarez 02/11/2025 1 [place] Jackie Alvarez [id number] Jackie Alvarez 02/11/2025 1 [place] Jackie Alvarez [id number] Jackie Alvarez 03/25/2025 2 [facility] (MEDICAID REPLACEMENT - HMO) Jackie Alvarez [id number] Jackie Alvarez 07/15/2025 2 [facility] Jackie Alvarez [id number] Jackie Alvarez Notes Date Note Type Note Provider Name and Address Organization Details Recorded Time 5 text/html 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 For vaginal bleeding, patient reportshistory of menopause having occurredandno history of post menopausal bleeding. For urinary symptoms, patient reportsno hematuria,no incontinence,no nocturia, andno urinary frequency. For vulva, patient reportsno genital lesionandno vulvar atrophy. For vagina, patient reportsnormal vaginal dischargeandno vaginal atrophy.Breast symptomsFor breast, patient reportsno breast lump,no nipple discharge, andno breast pain.Psychological symptomsFor sexual complaints, patient reportsno sexual complaints. For psychological symptoms, patient reportsno depressionandno anxiety.Preventative measuresFor preventive measures, patient reportsencourage regular mammograms starting age 40,encourage self breast examination,encourage regular exercise, andencourage no tobacco use.64yo wweh/o hyst, BSO (non-cancerous indications per pt)no h/o abnormal paps [facility] [address], [place], [address], [facility] 02/12/2025 10:20:26 OBGyn Episode Ob Episode Information Episode Created Date Number of Fetuses Patient Bloodtype Patient rh Status Prepregnancy Weight lbs Domestic Partner Domestic Partner Phone Father Name Pea Viner Mechanic Status 02/12/20 25 1 CLOSED Fetus Data First Name Last Name Admitted to NICU Weight (g) Sex Living Outcome Pediatric Complications Fetus ID Race Codes Race Delivery Type F Full Term [id number] Vaginal Delivery Atilio Calculation Initial Atilio Date Initial Exam Date Initial Exam Provider Initial Ultrasound Date Last Menstrual Period Date Ultra Sound Weeks Gestation 0 Eighteen To Twenty Week Atilio Update Ultra Sound Date Fundal Height At Umbil Quickening Date Ultra Sound Latest Weeks Gestation Final Atilio Confirmed By Final Atilio Confirmed Date Final Atilio Date Ultra Sound Latest Days Gestation 0 0 Menstrual History Last Menstrual Date Menses Monthly On Bcp Conception Prior Menses Frequency Hcg Plus Date Menarche Onset Age Delivery Information Delivery Date Delivery Type Labor Anesthesia Weeks Gestation Incision Type Labor Labor Length Hrs Delivered By Post Complications Tubal Sterilization Discharge Date Comments 4 Discharge Information Feeding Method Contraceptive Method Maternal HG B and HCT Levels Ob Episode Information Episode Created Date Number of Fetuses Patient Bloodtype Patient rh Status Prepregnancy Weight lbs Domestic Partner Domestic Partner Phone Father Name Pea Viner Mechanic Status 02/12/20 25 1 CLOSED Fetus Data First Name Last Name Admitted to NICU Weight (g) Sex Living Outcome Pediatric Complications Fetus ID Race Codes Race Delivery Type [id number] Atilio Calculation Initial Atilio Date Initial Exam Date Initial Exam Provider Initial Ultrasound Date Last Menstrual Period Date Ultra Sound Weeks Gestation 0 Eighteen To Twenty Week Atilio Update Ultra Sound Date Fundal Height At Umbil Quickening Date Ultra Sound Latest Weeks Gestation Final Atilio Confirmed By Final Atilio Confirmed Date Final Atilio Date Ultra Sound Latest Days Gestation 0 0 Menstrual History Last Menstrual Date Menses Monthly On Bcp Conception Prior Menses Frequency Hcg Plus Date Menarche Onset Age Delivery Information Delivery Date Delivery Type Labor Anesthesia Weeks Gestation Incision Type Labor Labor Length Hrs Delivered By Post Complications Tubal Sterilization Discharge Date Comments 3 Discharge Information Feeding Method Contraceptive Method Maternal HG B and HCT Levels Ob Episode Information Episode Created Date Number of Fetuses Patient Bloodtype Patient rh Status Prepregnancy Weight lbs Domestic Partner Domestic Partner Phone Father Name Pea Viner Mechanic Status 02/12/20 25 1 CLOSED Fetus Data First Name Last Name Admitted to NICU Weight (g) Sex Living Outcome Pediatric Complications Fetus ID Race Codes Race Delivery Type F Full Term [id number] Vaginal Delivery Atilio Calculation Initial Atilio Date Initial Exam Date Initial Exam Provider Initial Ultrasound Date Last Menstrual Period Date Ultra Sound Weeks Gestation 0 Eighteen To Twenty Week Atilio Update Ultra Sound Date Fundal Height At Umbil Quickening Date Ultra Sound Latest Weeks Gestation Final Atilio Confirmed By Final Atilio Confirmed Date Final Atilio Date Ultra Sound Latest Days Gestation 0 0 Menstrual History Last Menstrual Date Menses Monthly On Bcp Conception Prior Menses Frequency Hcg Plus Date Menarche Onset Age Delivery Information Delivery Date Delivery Type Labor Anesthesia Weeks Gestation Incision Type Labor Labor Length Hrs Delivered By Post Complications Tubal Sterilization Discharge Date Comments 9 Discharge Information Feeding Method Contraceptive Method Maternal HG B and HCT Levels
--- OUTSIDE RECORDS SUMMARY | 2025-08-11 15:52 | XMS_ITS | Clinical Summary ---
Author Organization [facility] Address [address] [place] [address] Care Team Providers Care Pain Management Nurse Name Role Phone Keaton Booth MD Primary Care Provider + Source Comments [facility],non-owned Affiliates and Associated Physician Practices is amultiple site organization consisting of ambulatory clinics and hospital sitesin [place], [place], [place] and [place]. This disclosure is being madepursuant to the Care Everywhere program and may not contain all information available regarding this patient. Last updated 18.[facility] [employer] Allergies Active Allergy Reactions Criticality Noted Date [...] Comments Blood Pressure 119/83 11/04/2016 10:09 AM MECHANICAL INTEGRITY ENGINEER Pulse 114 11/04/2016 10:09 AM MECHANICAL INTEGRITY ENGINEER Temperature 36.4 C (97.6 F) 06/25/2015 4:44 PM CDT Respiratory Rate 18 06/25/2015 9:27 PM CDT Oxygen Saturation 100% 06/25/2015 9:27 PM CDT Inhaled Oxygen Concentration - - Weight 92.3 kg (203 lb 8 oz) 11/04/2016 10:09 AM MECHANICAL INTEGRITY ENGINEER Height 170.2 cm (5' 7) 11/04/2016 10:09 AM MECHANICAL INTEGRITY ENGINEER Body Mass Index 31.87 11/04/2016 10:09 AM MECHANICAL INTEGRITY ENGINEER Plan of Treatment Health Maintenance Due Date [...] patient's age to complete this topic Insurance [facility] Care Teams Pain Management Nurse Relationship Specialty Start Date End Date Keaton Booth MD [address] [address] PCP - General Family Medicine 04/28/15
== END 2025-08-11 14:13 | disposition home or self-care (01) ==
PROVIDERS: PCP Family Medicine Adolescent Medicine; Visit Provider Nurse Practitioner Family
DX: Z12.31 Encounter for screening mammogram for malignant neoplasm of breast (principal)
CPT/HCPCS: 77063; 77067

== ENCOUNTER 2025-09-08 08:12 | Day surgery (SDC) | payer MEDICAID, SELFPAY ==
--- OUTSIDE RECORDS SUMMARY | 2016-03-01 12:41 | XMS_ITS | Continuity of Care Document ---
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 [address] [place] [address], [id number], [place]. tel:[phone] [facility], [address] [place] [address], [id number], tel:[phone] [facility] No Information Boni Ribeiro. [address] [place], [place], [id number], . tel:[phone] Family History Family Member Type Diagnosis Age At Onset No Information Payers Payer name Insurance type Covered democrat ID Authoriza tion(s) No Information Social History Type Description Quantity Date Captured Comments Sex Female Smoking Status No Information Chief Complaint And Reason For Visit No Information History Of Present Illness Encounter Date Complaint History Of Prese nt Illness No Information Instructions Date Instruction Additional Infor mation No Information Assessments Type Assessment Date No Information Patient Care Teams Name Effective Dates (start - stop) Status Members No Information
--- OUTSIDE RECORDS SUMMARY | 2025-06-30 05:30 | XMS_ITS ---
Author Organization [facility] Address [address] [place] [address] Care Team Providers Care Senior Accountant Cpa Name Role Phone Ann Flores Primary Care Provider REASON FOR VISIT 4 week F/U Social History Sex Assigned At : Social History Observation Description Sex Assigned At Female Encounters Encounter Location Date Provider Diagnosis [address] [place] [address] 06/30/2025 Ann Flores Plan Of Treatment No Information Progress Notes * Bozena ALVAREZOB:1960 (65 yo F)Acc No.[id number]:06/30/2025 UNLOCKED PROGRESS NOTE Patient: Jackie GALARZA Provider: Nestor Flores DNP, APRN, JOHN-BC :1960 A ge:65 Y S ex:Female Date:06/30/2025 Address:[address] [place], [place] [id number] Structured Data:Is there a n farzana you would prefer we call you? (Nombre que prefiere usar) : No Subjective: * Chief Complaints: * 1 . 4 week F/U. * Medical History: Objective: * Vitals: Assessment: Plan: * Treatment: * * Electronic signature of Meghana Serrano , [id number] on 09/08/2025 at 08:18 AM FINAL EXPENSE AGENT Sign off status: Pending * Provider: Nestor Flores DNP, APRN, PMHNP-BC Date: 0 06/30/2025 Generated for Printing/Faxing/eTransmitting on: 11/08/2024 08:18 AM FINAL EXPENSE AGENT
[2025-09-05 08:21] VITALS: BMI 32.3
--- NOTE | ~2025-09-08 | XR_ITS ---
XR fluoroscopy no charge Indication: Bilateral L3, L4 and L5 medial branch dorsal rami nerve block TECHNIQUE: Fluoroscopy used during Bilateral L3, L4 and L5 medial branch dorsal rami nerve block performed by [Gurmeet Rodrigues MD] on 09/08/2025. 54 seconds of fluoroscopy with 16 fluoroscopic images captured. FINDINGS: Correlate with procedure note. IMPRESSION: Fluoroscopy used during Bilateral L3, L4 and L5 medial branch dorsal rami nerve block. Reviewed, dictated and finalized at location [facility]. [facility] COMPTROLLER IMPRESSION: Fluoroscopy used during Bilateral L3, L4 and L5 medial branch dorsa l rami nerve block.
--- NOTE | 2025-09-08 05:48 | WPDHPUPDATE1 ---
History and Physical Update Update Date/Time: 09/08/25 05:48 History and Physical has been reviewed, including an updated exam of the patient. There are NO changes in the patient's condition. Risks, benefits, and alternatives have been discussed and questions answered. Patient agrees to proceed with procedure.
--- NOTE | 2025-09-08 05:49 | W.PM.PROC2 ---
Procedure Note - Detailed Date of Procedure 09/08/25 Pre-op Diagnosis Lumbar Spondylosis w/o Myelopathy or Radiculopathy Post-op Diagnosis Same Procedure Performed Diagnostic Bilateral Lumbar Medial Branch/Dorsal Ramus Blocks at L3, L4, L5 Treating the Bilateral L4-5, L5-S1 Facet Joints Under Fluoroscopic Guidance and with Contrast Control. (4 levels blocked). Surgeon Gurmeet Rodrigues MD Computer Consultant None. Anesthesia Local Description of Procedure INFORMED CONSENT: Risks, benefits and alternatives to the procedure were discussed in detail with the patient who expressed explicit understanding and consent to proceed. Patient was informed verbally and in written form regarding the risks associated with the procedure including the low risk of serious infection, bleeding/bruising, allergic reaction, nerve or organ injury, paralysis, procedural site pain or discomfort, worsening pain and/or mobility, failure to treat and/or disfigurement. The patient expressed explicit understanding and consent to proceed. All materials required for the procedure were available prior to procedure start. Site and side were marked prior to procedure and confirmed in the presence of the patient. PROCEDURE IN DETAIL: The patient was brought to the procedural suite and placed in the prone position. Patient was made comfortable with use of pillows under the head/chest, hips and ankles. Skin overlying the injection site on the affected side(s) was prepared broadly with ChloraPrep applicator and draped in a sterile manner. Aseptic technique was used throughout. The endplates of the vertebral bodies at the site(s) of interest were aligned in the AP view. Ipsilateral oblique angulation was utilized to optimize visualization of the intersection between the superior articulating process and transverse process at each target site. Local anesthesia was established by infiltration with approximately 5 mL of 1% lidocaine via a 1-1/2 inch 27-gauge needle. A 25-gauge 5.0 inch Quincke spinal needle was advanced until the needle tip contacted periosteum at the target site, right L3. Lateral view was utilized to confirm the appropriate placement of the needle tip just anterior to the facet line and superior to the pedicle. In the Lateral view, 0.25 mL of Omnipaque 300 contrast medium was injected after negative aspiration for CSF, blood or other bodily fluid, showing appropriate extra-articular spread of contrast without evidence of intravascular, foraminal or intrathecal placement. A 0.5 mL solution of 0.5% PF bupivacaine was injected after negative repeat aspiration. Appropriate spread of the injectate was confirmed with washout of previously injected contrast. No parasthesias were elicited. Needle was removed completely intact without difficulty. The same exact procedure was repeated for all remaining levels on the ipsilateral side, right L4, L5 medial branches/dorsal ramus, modified as necessary to accommodate for the new target location with identical findings and results and no evidence of complication. The same exact procedure was repeated for all remaining levels on the contralateral side, left L3, L4, L5 medial branches/dorsal ramus, modified as necessary to accommodate for the new target location with identical findings and results and no evidence of complication. Images were saved and documented in the patient chart. Patient's skin was cleaned and sterile bandage applied. The patient tolerated the procedure well. The patient was transported to the recovery area in stable condition where they were observed for an appropriate amount of time prior to discharge, without evidence of complication. Patient was instructed on the appropriate completion of a pain diary over the next 12-24 hours. The patient was instructed to avoid excessive activity for the next 48 hours, including climbing and frequent use of stairs. Showers only for 48 hours. They were instructed not to drive or operate heavy machinery for 24 hours. They are to monitor for severe headaches, fevers, chills, night sweats, erythema/swelling at the site or any other signs of infection, bleeding/bruising, bowel or bladder changes as well as new pain, weakness or numbness in the upper or lower extremity. Should they notice these changes, they are instructed to call our office immediately or report directly to the nearest Emergency Department if no answer or if after posted office hours. COMPLICATIONS: None COMMENTS: None CONTRAST WASTED: 28.5mL Omnipaque 300. Complications No immediate complications Condition Stable Disposition Same day [facility] Billing Surgery - Charge Forward: Surgery Billing
--- OUTSIDE RECORDS SUMMARY | 2025-09-08 08:18 | XMS_ITS | Clinical Summary ---
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
--- OUTSIDE RECORDS SUMMARY | 2025-09-08 08:19 | XMS_ITS | Clinical Summary ---
Author Organization [facility] Address [address] [place] [address] Care Team Providers Care Shop Girl Name Role Phone Keaton Booth MD Primary Care Provider + Source Comments [facility],non-owned Affiliates and Associated Physician Practices is amultiple site organization consisting of ambulatory clinics and hospital sitesin [place] and [place]. This disclosure is being madepursuant to the Care Everywhere program and may not contain all information available regarding this patient. Last updated 18.[facility] Access Mobile Allergies Active Allergy Reactions Criticality Noted Date [...] Comments Blood Pressure 119/83 11/04/2016 10:09 AM FINANCIAL COORDINATOR Pulse 114 11/04/2016 10:09 AM FINANCIAL COORDINATOR Temperature 36.4 C (97.6 F) 06/25/2015 4:44 PM CDT Respiratory Rate 18 06/25/2015 9:27 PM CDT Oxygen Saturation 100% 06/25/2015 9:27 PM CDT Inhaled Oxygen Concentration - - Weight 92.3 kg (203 lb 8 oz) 11/04/2016 10:09 AM FINANCIAL COORDINATOR Height 170.2 cm (5' 7) 11/04/2016 10:09 AM FINANCIAL COORDINATOR Body Mass Index 31.87 11/04/2016 10:09 AM FINANCIAL COORDINATOR Plan of Treatment Health Maintenance Due Date [...] 05/26/1979 DTAP/TDAP/TD VACCINES (1 - Tdap) 1980 PAP SMEAR 1982 Cervical Cancer Screening 1991 PAP with HPV 1991 PNEUMOCOCCAL VACCINE 50+ (1 of 1 - PCV) 2011 ZOSTER VACCINE (1 of 2) 2011 DEPRESSION SCREENING 10/16/2024 COVID-19 VACCINE (1 - 2024-2 6 season) 2025 INFLUENZA VACCINE (#1) 2025 Respiratory [...] patient's age to complete this topic Insurance [facility] Care Teams Shop Girl Relationship Specialty Start Date End Date Keaton Booth MD [address] [address] PCP - General Family Medicine 04/28/15
--- OUTSIDE RECORDS SUMMARY | 2025-09-08 08:19 | XMS_ITS | Clinical Summary ---
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
--- OUTSIDE RECORDS SUMMARY | 2025-09-08 08:19 | XMS_ITS | Patient Health Record ---
Author Organization [facility] Address [address] [place] [address] Care Team Providers Care Furniture Painter Name Role Phone Ann Flores Primary Care Provider [phone] Hebert Shaw Unavailable [phone] Martinez Rapp Unavailable [phone] Brianda Benavides Unavailable [phone] Laure Sarmiento Unavailable [phone] Nyasia Steele Unavailable Wendy Hartman Unavailable [phone] Beronica Perkins Unavailable [phone] Pari Souza Unavailable [phone] Joan Joyce Unavailable [phone] Hilda Lundberg Unavailable [phone] Allergies Allergen (clinical drug ingredient) Drug/Non Drug Allergy documented on EMR Reaction Allergy Type Onset Date Status Penicillin anaphylaxis Drug Allergy Acti ve Results Component Value Reference Range Notes 14 Panel Urine Drug Screen Reviewed date:08/01/2025 01:15:17 PM Interpretation: Performing Lab: Notes/Report: THC POS MICHELA neg MOP (OPI) neg AMP neg MET neg BAR neg BZO neg MDMA neg MTD neg OXY neg PCP neg BUP POS TCA neg FTY neg 14 Panel Urine Drug Screen Reviewed date:09/01/2025 01:43:32 PM Interpretation: Performing Lab: Notes/Report: THC POS MICHELA neg MOP (OPI) neg AMP neg MET neg BAR neg BZO POS MDMA neg MTD neg OXY neg PCP POS BUP POS TCA POS FTY neg PDF Report Reviewed date:03/03/2025 08:35:18 AM Interpretation: Performing Lab:[facility], [address] [place] [address], Phone - [phone], Director - Rolando Notes/Report: ToxAssure, ToxAssure FLEX or MAT drug testing: -Technical component - Data analysis performed at [address], [address]. [phone]. Tile Burner Tracey Sellers MD PDF Report1 LCLS 14 Panel Urine Drug Screen Reviewed date:06/30/2025 02:12:03 PM Interpretation: Performing Lab: Notes/Report: THC POS MICHELA neg MOP (OPI) neg AMP neg MET neg BAR neg BZO POS MDMA neg MTD neg OXY neg PCP neg BUP POS TCA neg FTY neg Buprenorphine and Metabolite (Urine test) Reviewed date:07/08/2025 08:43:39 AM Interpretation: Performing Lab:[facility], [address] [facility], [facility], Phone - [phone], Director - PhDAbudu Notes/Report: Clinical Information:[id number] Buprenorphine Comment: Confirmation p erformed by Mass Spectrometry Buprenorphine Positive Buprenorphine Conf, MS, UR 396 Cutoff=10 ng/m L Norbuprenorphine Comment: Invalid Res ult: LC/MS/MS Interference 12 Panel Urine Drug Screen Reviewed date:03/04/2025 [...] POS 12 Panel Urine Drug Screen Reviewed date:12/18/2024 02:47:13 PM Interpretation: Performing Lab: Notes/Report: THC POS MICHELA neg MOP (OPI) neg AMP neg MET neg BAR neg BZO neg MDMA neg MTD neg OXY neg PCP neg BUP POS Comprehensive Drug Analysis, Urine Reviewed date:03/03/2025 08:35:18 AM Interpretation: Performing Lab:[facility], [address] [place] [address], Phone - [phone], Director - Rolando Notes/Report: ToxAssure, ToxAssure FLEX or MAT drug testing: -Technical component - Data analysis performed at [address], [place], [address]. [phone]. Tile Burner Tracey Sellers MD Summary Report (Summary) FINAL [...] test is not intended to distinguish between stgiy-4-vektzvfuhamrhsnfhrod, the predominant form of THC in most herbal or marijuana-based products, and ntbtp-9-peelbrphajecusmrkudk. Buprenorphine 255 ng/mg creat Norbuprenorphine 353 ng/mg [...] clinical consultation, please call . PDF . 14 Panel Urine Drug Screen Reviewed date:07/23/2025 01:26:53 PM Interpretation: Performing Lab: Notes/Report: THC POS MICHELA neg MOP (OPI) neg AMP neg MET neg BAR neg BZO POS MDMA neg MTD neg OXY neg PCP neg BUP POS TCA neg FTY neg Buprenorphine and Metabolite (Urine test) Reviewed date:07/30/2025 07:57:03 AM Interpretation: Performing Lab:[facility], [address] [facility], Phone - [phone], Director - PhDAbudu Notes/Report: Clinical Information:[id number] LM Buprenorphine Positive Confirmation p erformed by Mass Spectrometry Buprenorphine Positive Buprenorphine Conf, MS, UR 329 Cutoff=10 ng/m L Norbuprenorphine Positive Norbuprenorphine Conf, MS, UR 946 Cutoff=10 ng/mL 14 Panel Urine Drug Screen Reviewed date:07/08/2025 01:45:45 PM Interpretation: Performing Lab: Notes/Report: THC POS MICHELA neg MOP (OPI) neg AMP neg MET neg BAR neg BZO POS MDMA neg MTD neg OXY neg PCP neg BUP POS TCA neg FTY neg 12 Panel Urine Drug Screen Reviewed date:02/19/2025 [...] neg OXY neg PCP neg BUP neg Reason For Referral Reason OUD, high PHQ, refer red to psych, as well. Diagnosis 1 Opioid use disorder (F11.99) Referral Organization [facility] Referring Provider First Name Martinez Referring Provider Last Name Dionte Referring Provider [facility] Referred Provider Specialty [facility] Clinical Notes Kinga Moses 12/12/2024 [...] 12-26-24. Referral Priority Routine Reason Psychotherapy Peer Field Marketing Specialist Diagnosis 1 Opioid use disorder (F11.99) Diagnosis 2 MDD (major depressiv e disorder) (F32.9) Diagnosis 3 MIKE (generalized anx iety disorder) (F41.1) Referral Organization [facility] Referring Provider First Name Ann Referring Provider Last Name Sandra Referring Provider Speciality Psychiatry Referred Provider Specialty Behavior[facility] General Notes Ann Flores 01:55:17 PM >Client doesn't have reliable transportation, but is interested in having telehealth for therapy, and having a peer extension service specialist in charge that she can talk to on phone or who can come to see her at her home if possible. Thanks. Clinical Notes Pari Souza 10:29:24 AM >Sent message to supervisor winding department of ACT programming to see if peer recovery coaches can go to client homes for visits/treatment plan as primary method of contact. Will await response., Jay Souzacarter Salazar 12/31/2024 11:46:34 AM >Call to client to discuss referral and availability of peer recovery coaches/therapy. No answer, LVM requesting call back., Jay Souzacarter Salazar 01/07/2025 10:49:23 AM >Call to client, no answer, LVM. Client calls back quickly and this clinician describes nature of call. Client states she has all the information regarding the therapy program at [facility] and peer recovery coaches and is thinking about enrolling at this time. Please see other note for more information. Referral Priority Routine Reason Peer Recovery Specia list - Opioid Use Disorder Diagnosis 1 Opioid use disorder (F11.99) Referral Organization [facility] Referring Provider First Name Ann Referring Provider [facility] Referring Provider Speciality Psychiatry Referred Provider Specialty [facility] Clinical Notes Kinga Moses 05/22/2025 10:31:04 AM >email sent to the recovery team. HN asking if the recovery team could reach out to the client to assist with getting the client enrolled with a wrestling coach. Referral Priority Routine Reason Family and individua l therapy Diagnosis 1 MDD (major depressiv e disorder) (F32.9) Diagnosis 2 MIKE (generalized anx iety disorder) (F41.1) Referral Organization [facility] Referring Provider First Name Ann Referring Provider Last Name Sandra Referring Provider Speciality Psychiatry Referred Provider Specialty [facility] Clinical Notes Kinga Moses 05/22/2025 10:40:01 AM >HN called the client to inform her about the email asking for a wrestling coach. HN also working on the referral for therapy. HN called the client at 10:40, HN provided the client with the number to [facility] to complete the intake for therapy and to get their first patient appointment set up. Client stated she was going to call on 05-22-25 to complete the enrollment process. MARICEL also explained the same directions to Anni Phillips Referral Priority Routine Reason PCP Diagnosis 1 Opioid use disorder (F11.99) Referral Organization [facility] Referring Provider First Name Hilda Referring Provider Last Name Toño Referring Provider Speciality Psychiatry Referred Provider Specialty Behavioral [facility] Clinical Notes Kathie Vasquez 07/01/2025 09:28:52 AM > Supervisor Dog License Officer called and spoke with client and provided necessary steps for client to get connected to PCP service at [facility]. Client was agreeable to this and agrees to call when ready Referral Priority Routine Medications Medication SIG (Take, Route, Frequency, Duration) Notes Start Date End Date Status buPROPion HCl ER (XL) 300 MG 1 tablet in the morning Orally Once a day; Duration: 30 days Active hydrOXYzine Pamoate 25 MG 1 - 2 capsules up to 3 times a day as needed for anxiety (max 100 mg/day) Orally Once a day; Duration: 30 days Active Buprenorphine HCl-Naloxone HCl 8-2 MG 1 tablet under the tongue and allow to dissolve Sublingual 3 times a day 09/01/2025 Active QUEtiapine Fumarate 200 MG 1 tablet Orally Once a day; Duration: 30 days As needed Active Sertraline HCl 100 MG 1.5 tablets once a day for 7 days, 1 tablet once a day for 7 days, 0.5 tablet once a day for 7 days Orally; Duration: 21 days Cross-Titration from sertraline to duloxetine, client has directions Active LORazepam 1 MG 1 tablet at bedtime as needed Orally 3 times a day As needed Active DULoxetine HCl 60 MG 1 capsule, after first week Orally Once a day; Duration: 30 days Cross-Titration from sertraline to duloxetine 08/27/2025 Active DULoxetine HCl 30 MG 1 capsule - Week 1 Orally Once a day; Duration: 7 days 08/27/2025 Active Prazosin HCl 2 MG 1 capsule [...] with others, in a hotel, in a detention, living outside on the street, on a [...] phone, visiting friends or family, going to scientologist or club meetings) Less than once a week How stressed are you? Stress is when someone feels tense, nervous, anxious, or can\t sleep at night because their mind is troubled Very much In the past year have you sp ent more than 2 nights in a row in a long term, fci, group home center, or juvenile correctional facility? 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 Legal History- Hx of drug-related charges Spiritual Affiliation- Caodaism Other Social History - Currently living with [...] 3 at once Inpt Psych Hospitalizations - [facility] November 2024 for benzo abuse [...] Abuse/Trauma- None Education- Some college, worked on [employer] degree 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[employer], 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, 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..] Abuse/Trauma- None Education- Some college, worked on [employer] degree 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, 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, 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 Legal History- Hx of drug-related charges Spiritual Affiliation- Caodaism Other Social History - Currently living with [...] Lorazepam-took 3 at once In Psych Hospitalizations [facility] November 2024 for benzo abuse for [...] Abuse/Trauma- None Education- Some college, worked on [employer] 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, 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, 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 Legal History- Hx of drug-related charges Spiritual Affiliation- Caodaism Other Social History - Currently living with [...] 3 at once Inpt Psych Hospitalizations - [facility] November 2024 for benzo abuse [...] Abuse/Trauma- None Education- Some college, worked on [employer] 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[employer], 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 Legal History- Hx of drug-related charges Spiritual Affiliation- Caodaism Other Social History - Currently living with [...] 3 at once Inpt Psych Hospitalizations - [facility] November 2024 for benzo abuse [...] Abuse/Trauma- None Education- Some college, worked on [employer] degree 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[employer], 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 Legal History- Hx of drug-related charges Spiritual Affiliation- Caodaism Other Social History - Currently living with [...] 3 at once Inpt Psych Hospitalizations - [facility] November 2024 for benzo abuse [...] Abuse/Trauma- None Education- Some college, worked on [employer] degree 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, 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, 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 Legal History- Hx of drug-related charges Spiritual Affiliation- Caodaism Other Social History - Currently living with [...] 3 at once Inpt Psych Hospitalizations - [facility] November 2024 for benzo abuse [...] Abuse/Trauma- None Education- Some college, worked on [employer] degree 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[employer], 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 Legal History- Hx of drug-related charges Spiritual Affiliation- Caodaism Other Social History - Currently living with [...] 3 at once Inpt Psych Hospitalizations - [facility] November 2024 for benzo abuse [...] Abuse/Trauma- None Education- Some college, worked on [employer] degree 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[employer], 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 Legal History- Hx of drug-related charges Spiritual Affiliation- Caodaism Other Social History - Currently living with [...] 3 at once Inpt Psych Hospitalizations - [facility] November 2024 for benzo abuse [...] Abuse/Trauma- None Education- Some college, worked on [employer] degree 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, 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, 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 Legal History- Hx of drug-related charges Spiritual Affiliation- Caodaism Other Social History - Currently living with [...] 3 at once In Psych Hospitalizations - [facility] November 2024 for benzo abuse [...] Abuse/Trauma- None Education- Some college, worked on [employer] degree 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, 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, 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 Legal History- Hx of drug-related charges Spiritual Affiliation- Caodaism Other Social History - Currently living with [...] 3 at once Inpt Psych Hospitalizations - [facility] November 2024 for benzo abuse [...] Abuse/Trauma- None Education- Some college, worked on [employer] degree 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, 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, 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 Legal History- Hx of drug-related charges Spiritual Affiliation- Caodaism Other Social History - Currently living with [...] 3 at once Inpt Psych Hospitalizations - [facility] November 2024 for benzo abuse [...] Abuse/Trauma- None Education- Some college, worked on [employer] degree 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, 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, 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 Legal History- Hx of drug-related charges Spiritual Affiliation- Caodaism Other Social History - Currently living with [...] 3 at once Inpt Psych Hospitalizations - [facility] November 2024 for benzo abuse [...] Abuse/Trauma- None Education- Some college, worked on [employer] degree 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, 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, 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 Legal History- Hx of drug-related charges Spiritual Affiliation- Caodaism Other Social History - Currently living with [...] 3 at once Inpt Psych Hospitalizations - [facility] November 2024 for benzo abuse [...] Abuse/Trauma- None Education- Some college, worked on [employer] degree 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, 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, 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..] Abuse/Trauma- None Education- Some college, worked on [employer] degree 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[employer] [address], 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, 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 Legal History- Hx of drug-related charges Spiritual Affiliation- Caodaism Other Social History - Currently living with [...] 3 at once Inpt Psych Hospitalizations - [facility] November 2024 for benzo abuse [...] W/U Status Risk Notes Problem Tobacco user (061951046) Nicotine dependence, unspecified, uncomplicated (F17.200) Active confirmed Problem Generalized anxiety disorder (74233237) MIKE (generalized anxiety disorder) (F41.1) Active confirmed Problem Sleep disturbance (97209753) Sleep disturbance (G47.9) Active confirmed Problem Overweight (279477673) Over weight (E66.3) Active confirmed Problem Major depressive disorder (448196573) MDD (major depressive disorder) (F32.9) Active confirmed Problem Overweight (991813335) Overweight (BMI 25.0-29.9) (E66.3) Active confirmed Problem Opioid use disorder (6895204182) Opioid use disorder (F11.99) Active confirmed Vital Signs Heart Rate 64 /min 09/01/2025 Temperature 98.4 degrees Fahrenheit 08/01/2025 Respiratory Rate 16 /min 09/01/2025 Oximetry 98 % 09/01/2025 Blood pressure diastolic 80 mm Hg 09/01/2025 Height 66 in in 09/01/2025 Blood pressure systolic 122 mm Hg 09/01/2025 Weight 197.4 lbs lbs 09/01/2025 BMI 31.86 kg/m2 09/01/2025 Encounters Encounter Location Date Provider Diagnosis [address] [place] [address] 12/12/2024 Martinez Rapp Opioid use disorder F11.99 Counts Include [facility] [address] [place] [address] 12/12/2024 Laure Sarmiento [address] [place] [address] 12/16/2024 Ann Flores MDD (major depressive disorder) F32.9 ; MIKE (generalized anxiety disorder) F41.1 ; Sleep disturbance G47.9 ; Opioid use disorder F11.99 and Medication management Z79.[address] [address] 12/18/2024 Wendy Hartman Opioid use disorder F11.99 and Nicotine dependence, unspecified, uncomplicated F17.[address] [address] 01/01/2025 Nyasia Steele Opioid use disorder F11.99 ; Nutritional counseling Z71.3 ; Dietary counseling Z71.3 and Overweight (BMI 25.0-29.9) E66.[address] [place] [address] 01/07/2025 Pari Souza MDD (major depressive disorder) F32.9 Counts Include [address] [facility] [address] [place] [address] 01/16/2025 Hebert Shaw Opioid use disorder F11.99 and Overweight (BMI 25.0-29.9) E66.[address] [address] 01/21/2025 Ann Flores MIKE (generalized anxiety disorder) F41.1 ; MDD (major depressive disorder) F32.9 ; Sleep disturbance G47.9 ; Opioid use disorder F11.99 and Medication management Z79.[address] [address] 02/19/2025 Wendy Hartman Over weight E66.3 and Opioid use disorder F11.99 [facility] [address] [address] 02/25/2025 Ann Sabblut MIKE (generalized anxiety disorder) F41.1 ; MDD (major depressive disorder) F32.9 ; Sleep disturbance G47.9 ; Opioid use disorder F11.99 and Medication management Z79.[address] [address] 03/04/2025 Wendy Hartman Over weight E66.3 and Opioid use disorder F11.[address] [address] 03/27/2025 Ann Sabblut Over weight E66.3 ; MIKE (generalized anxiety disorder) F41.1 ; MDD (major depressive disorder) F32.9 ; Sleep disturbance G47.9 ; Opioid use disorder F11.99 and Medication management Z79.[address] [address] 04/21/2025 Ann Sabblut Over weight E66.3 ; MIKE (generalized anxiety disorder) F41.1 ; MDD (major depressive disorder) F32.9 ; Sleep disturbance G47.9 ; Opioid use disorder F11.99 and Medication management Z79.[address] [address] 05/21/2025 Ann Sabblut Over weight E66.3 ; MIKE (generalized anxiety disorder) F41.1 ; MDD (major depressive disorder) F32.9 ; Sleep disturbance G47.9 ; Opioid use disorder F11.99 and Medication management Z79.899 Counts Include [address] [facility] [address], [place] [address] 06/30/2025 Hilda Lundberg Opioid use disorder F11.[address] [address] 07/01/2025 Ann Sabblut Over weight E66.3 ; MIKE (generalized anxiety disorder) F41.1 ; MDD (major depressive disorder) F32.9 ; Sleep disturbance G47.9 ; Opioid use disorder F11.99 and Medication management Z79.[address] [address] 07/08/2025 Hilda Toño Opioid use disorder F11.99 and Over weight E66.[address] [address] 07/23/2025 Hilda Toño Opioid use disorder F11.[address] [address] 07/28/2025 Ann Sabblut Over weight E66.3 ; MIKE (generalized anxiety disorder) F41.1 ; MDD (major depressive disorder) F32.9 ; Sleep disturbance G47.9 ; Opioid use disorder F11.99 and Medication management Z79.[address] [address] 08/01/2025 Joan Maria Del Carmen Opioid use disorder F11.99 and Over weight E66.[address] [address] 08/27/2025 Ann Sabblut Over weight E66.3 ; MIKE (generalized anxiety disorder) F41.1 ; MDD (major depressive disorder) F32.9 ; Sleep disturbance G47.9 ; Opioid use disorder F11.99 and Medication management Z79.[address] [address] 09/01/2025 Hilda Toño Over weight E66.3 and Opioid use disorder F11.[address] [address] 01/17/2025 Ann Sabblut MDD (major depressive disorder) F32.9 ; MIKE (generalized anxiety disorder) F41.1 and Sleep disturbance G47.[address] [address] 02/20/2025 Ann Sabblut MDD (major depressive disorder) F32.9 ; Sleep disturbance G47.9 and MIKE (generalized anxiety disorder) F41.1 [address] [place] [address] 03/14/2025 [facility] [address] [facility] [place] [address] 03/17/2025 [facility] [address] [place] [address] 03/18/2025 [facility] [address] [place] [address] 03/19/2025 [facility] [address] [facility] [place] [address] 03/19/2025 [facility] [address] [place] [address] 03/19/2025 Nyasia Steele [address] [place] [address] 03/19/[address] [place] [address] 03/21/[address] [place] [address] 03/24/[address] [place] [address] 03/26/2025 Ann Flores [address] [place] [address] 06/24/2025 Ann Flores [address] [place] [address] 07/04/2025 Ann Flores [address] [place] [address] 08/01/2025 Brianda Benavides Opioid use disorder F11.99 [...] E66.3) 05/21/2025 Over weight (ICD-10 - E66.3) 06/30/2025 Opioid use disorder (ICD-10 - F11.99) 07/01/2025 Over weight (ICD-10 - E66.3) 07/08/2025 Over weight (ICD-10 - E66.3) 07/08/2025 Opioid use disorder (ICD-10 - F11.99) 07/23/2025 Opioid use disorder (ICD-10 - F11.99) 07/28/2025 Over weight (ICD-10 - E66.3) 08/01/2025 Over weight (ICD-10 - E66.3) 08/01/2025 Opioid use disorder (ICD-10 - F11.99) 08/01/2025 Opioid use disorder (ICD-10 - F11.99) 08/27/2025 Over weight (ICD-10 - E66.3) 09/01/2025 Over weight (ICD-10 - E66.3) 09/01/2025 Opioid use disorder (ICD-10 - F11.99) 02/20/2025 Sleep disturbance (ICD-10 - G47.9) 08/27/2025 MIKE (generalized anxiety disorder) (ICD-10 - F41.1) Lorazepam prescribed by PCP 07/28/2025 MIKE (generalized anxiety disorder) (ICD-10 - F41.1) Lorazepam prescribed by PCP 07/01/2025 MIKE (generalized anxiety disorder) (ICD-10 - F41.1) 04/21/2025 MIKE (generalized anxiety disorder) (ICD-10 - [...] MDD (major depressive disorder) (ICD-10 - F32.9) 08/27/2025 MDD (major depressive disorder) (ICD-10 - F32.9) Cross-Titration from Sertraline to Duloxetine Week 1: sertraline 150 mg daily, duloxetine 30 mg daily Week 2: sertraline 100 mg daily, duloxetine 60 mg daily Week 3: sertraline 50 mg daily, continue duloxetine 60 mg daily Week 4: Stop sertraline, continue duloxetine 60 mg daily 08/27/2025 Sleep disturbance (ICD-10 - G47.9) 07/28/2025 Sleep disturbance (ICD-10 - G47.9) 07/01/2025 Sleep disturbance (ICD-10 - G47.9) Starting prazosin for nightmares. 05/21/2025 Sleep disturbance (ICD-10 - G47.9) Starting [...] or be administered own oral medications per [facility] protocols. Provided informed consent with understanding of [...] or be administered own oral medications per [facility] protocols. Provided informed consent with understanding of [...] or be administered own oral medications per [facility] protocols. Provided informed consent with understanding of [...] 07/28/2025 Opioid use disorder (ICD-10 - F11.99) 08/27/2025 Opioid use disorder (ICD-10 - F11.99) 08/27/2025 Medication management (ICD-10 - Z79.899) May self-administer medications or be administered own oral medications per [facility] protocols. Provided informed consent with understanding of side effects, adverse effects, risks and benefits as well as alternative treatments as previously discussed and with the above recommended medications & other aspects of the treatment program. Agrees to return sooner if symptoms worsen or suicidal or homicidal ideations occur. May also contact the 24-hour crisis hotline, refer to the closest emergency room or call 911 if new symptoms arise of existing symptoms worsen. The Patient/Guardian is aware that this would apply to symptoms like: suicidal ideation, homicidal ideation, high risk behaviors, manic symptoms, psychotic symptoms, physical symptoms, or any other symptoms that may be dangerous to self or others. 07/28/2025 Medication management (ICD-10 - Z79.899) May self-administer medications or be administered own oral medications per [facility] protocols. Provided informed consent with understanding of [...] or be administered own oral medications per [facility] protocols. Provided informed consent with understanding of [...] or be administered own oral medications per [facility] protocols. Provided informed consent with understanding of [...] or be administered own oral medications per [facility] protocols. Provided informed consent with understanding of [...] or be administered own oral medications per [facility] protocols. Provided informed consent with understanding of [...] attempt to fill out paperwork for both [facility] and will reach out once completed as [...] may self-administer their own oral medications per [facility] Protocol. 01/01/2025 Other Patient agrees to take [...] regarding availability of peer recovery coaches and [facility] therapists via [facility]. Client states she understands nature of the referral. States she is still pondering if she wants to utilize either direct support worker at this time. Client appears to be in contemplation stage of change and does not yet appear ready to call central access to schedule with either supports at this time. Client confirms she does have scheduling information as well as general information about both programs already, provided by SHAUN Juarez and PCP (SHAUN Beatncur) and is grateful for the information. Client [...] may self-administer their own oral medications per [facility] Protocol. 02/19/2025 Other Discussed MAR program expectations. [...] may self-administer their own oral medications per [facility] Protocol. 03/04/2025 Other Discussed MAR program expectations. [...] may self-administer their own oral medications per [facility] Protocol. 06/30/2025 Other Patient agrees to take [...] may self-administer their own oral medications per [facility] Protocol. 07/08/2025 Other Patient agrees to take [...] may self-administer their own oral medications per [facility] Protocol. 07/23/2025 Other Patient agrees to take [...] may self-administer their own oral medications per [facility] Protocol. 08/01/2025 Other Patient agrees to take [...] may self-administer their own oral medications per [facility] Protocol. 09/01/2025 Other Patient agrees to take medication as [...] may self-administer their own oral medications per [facility] Protocol. Plan Of Treatment No Information Insurance Providers Payer Name Payer Address Payer Phone Subscriber Number Group Number Insured Name Patient Relationship to Insured Coverage Start Date Coverage End Date [facility] [address] [place] [address] [id number] Jackie Alvarez Self - patient is the insured 5 [address] [place] [address] [id number] Ruba Alvarezy Self - patient is the insured 5 5 [facility][NOTE 3] [address] [place] [address] [phone] [id number] Ruba Alvarezy Self - patient is the insured [address] [address] [id number] Ruba Alvarezy Self - patient is the insured 5 [employer]ID [employer] [address] [address] [id number] Ruba Alvarezy Self - patient is the insured 5 5 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
--- OUTSIDE RECORDS SUMMARY | 2025-09-08 08:19 | XMS_ITS | Encounter Summary ---
Author Organization [facility] Healthcare Address [address] [place] [address] Care Team Providers Care Axminster Weaver Name Role Phone Keaton Booth MD Primary Care Prov ider Encounter Details Date Type Department Care Team (Late st Contact Info) Description 1960 Orders Only [facility] Health Information Management [address] [place] [id number] Scanning, Provider Social History Tobacco Use Types Packs/Day Years Used Date Smoking Tobacco: Never Assessed Comments Unknown Sex and Gender Information Value Date Recorded Sex Assigned at Not on file 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
--- OUTSIDE RECORDS SUMMARY | 2025-09-08 08:19 | XMS_ITS | Data Portability ---
Author Organization [facility] [place] Address [address] [place] [address] [address] Care Team Providers Care Frame Aligner Name Role Phone CHELSEA PARTIDA Primary Care [...] Imaging MAMMO, screening, digital, bilateral 2024 025 [email or web address] [facility], [address], [place], [address], 18:37:47 DEXA, axial skeleton + vertebral fracture assessment 2024 025 BAILEY [facility], [address], [place], [address], 16:26:41 Medication Orders None recorded. Patient TargetsNo targets recorded. Patient InstructionsNo instructions recorded. Reason for Referral None Reported. Results Created Date Observation Date Name Description Value Unit Range Abnormal Flag Note LastModifiedBy Organization Detail LastModifiedTime 07/25/20 25 07/24/2025 DEXA, axial skele ton + verte bral fract ure asses sment No observ ation record ed. [address] [facility] [address], [place], [address], 07/31/2025 09:36:42 Result Notes None recorded. 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: EHR Chroni c: N Practice ID: 0001 Billa ble Time: 12:30:00 PM Not Available [facility] 0 21:23:56 Screening for malignant neoplasm of rectum Active 2014 Encounter for screening for malignant neoplasm of rectum;Rec orded Elsewhere: No Locatio n: [facility]: EHR Chroni c: N Practice ID: 0001 Billa ble Time: 12:30:00 PM Not Available [facility] 0 21:23:[address] Concept Active 2014 Encntr for general adult medical exam w/o abnormal findings;R ecorded Elsewhere: No Locatio n: [facility]: EHR Chroni c: N Practice ID: 0001 Billa ble Time: 12:30:00 PM Not Available [facility] 0 21:23:56 Atrophic vaginitis 00019468 Active 2015 Postmenopa usal atrophic vaginitis; Recorded Elsewhere: No Locatio n: [facility]: EHR Chroni c: N Practice ID: 0001 Billa ble Time: 08:30:00 AM Not Available [facility] 0 21:23:56 Right lower quadrant pain 211314064 Active 2015 RLQ pain;Recor ded Elsewhere: No Locatio n: [facility]: EHR Chroni c: N Practice ID: 0001 Billa ble Time: 08:30:00 AM Not Available [facility] 0 21:23:56 Dysuria 92819340 Active 2016 Dysuria;Re corded Elsewhere: No Locatio n: [facility]: EHR Chroni c: N Practice ID: 0001 Billa ble Time: 11:15:00 AM Not Available [facility] 0 21:23:56 Postmenop ausal bleeding 65513456 Active 2016 Postmenopa usal bleeding;R ecorded Elsewhere: No Locatio n: [facility]: EHR Chroni c: N Practice ID: 0001 Billa ble Time: 11:15:00 AM Not Available [facility] 0 21:23:56 Pain Active 2016 Other specified dyspareuni a;Recorded Elsewhere: No Locatio n: [facility]: EHR Chroni c: N Practice ID: 0001 Billa ble Time: 11:15:00 AM Not Available [facility] 0 21:23:56 Backache 438532285 Active 2016 Backache;R ecorded Elsewhere: No Locatio n: [facility]: EHR Chroni c: N Practice ID: 0001 Billa ble Time: 11:15:00 AM Not Available [facility] 0 21:23:56 Finding of general energy 449613685 Active 2018 Other fatigue;Re corded Elsewhere: No Locatio n: [facility]: EHR Chroni c: N Practice ID: 0001 Billa ble Time: 02:30:00 PM Not Available [facility] 0 21:23:56 Breast finding Active 2018 Other signs and symptoms in breast;Rec orded Elsewhere: No Locatio n: [facility]: EHR Chroni c: N Practice ID: 0001 Billa ble Time: 02:30:00 PM Not Available [facility] 0 21:23:56 Pelvic and perineal pain 013720349 Active 2018 Pelvic and perineal pain;Recor ded Elsewhere: No Locatio n: [facility]: EHR Chroni c: N Practice ID: 0001 Billa ble Time: 02:30:00 PM Not Available [facility] 0 21:23:56 Problem Notes None recorded. Procedures Surgical History Date Name Laterality Status Provider Name and Address Organization Details Recorded Time 10/16/18 90 hysterectomy completed [facility] 02/11/2025 15:56:59 operative procedure on ankle completed [facility] 02/11/2025 16:06:17 tonsillectomy and adenoidectomy completed [facility] 02/11/2025 16:06:28 Imaging Results None recorded. Procedure Notes None recorded. Medical Equipment None Reported. Allergies Allergen ID Allergen Name Allergen Category Reaction Reaction Severity Criticality Documentation Date Start Date Code Code System Note Provider Name and Address Organization Details Recorded Time 95316 Product containin g penicilli n (product) medicatio n Not available Not available Not available 10/02/2020 44124 8001 SNOMED Comme nt: [facility]; Not Available [facility] 0 14:20:37 Medications Name Sig Start Date Stop Date Status Note LastModified by Organization Details LastModified Time cyclobenz aprine 10 mg tablet take 1 tablet by oral route 2 times every day 07/08 completed Prescrib ed Elsewher e: No Locat ion: [facility] odify By: mark guzmanunter DateTime : 08/25/20 17 11:15:00 AM Not Available Not Available Not Available trazodone 50 mg tablet take 1 tablet by oral route 3 times every day after meals 02/11 completed Prescrib ed Elsewher e: Yes Loca tion: [facility]ify By: sarai monterroso DateTime : 09/29/20 15 12:30:00 PM Not Available Not Available Not Available venlafaxi ne 25 mg tablet take 1 tablet by oral route 3 times every day with food 08/25 completed Prescrib ed Elsewher e: Yes Loca tion: [facility]ify By: rod Ptoter ncounter DateTime : 09/29/20 15 12:30:00 PM Not Available Not Available Not Available Ativan 0.5 mg tablet take 2 tablet by oral route 3 times every day as needed 02/11 completed Prescrib ed Elsewher e: Yes Loca tion: [facility]ify By: sarai monterroso DateTime : 09/29/20 12:30:00 PM Not Available Not Available Not Available Bactrim DS 800 mg-160 mg tablet take 1 tablet by oral route every 12 hours 07/08 completed Prescrib ed Elsewher e: No Locat ion: [facility]ify By: mark guzmanuntvijay DateTime : 08/25/20 17 11:15:00 AM Not Available Not Available Not Available Estrace 0.01% (0.1 mg/gram) vaginal cream insert (1G) by vaginal route every week 07/08 completed Prescrib ed Elsewher e: No Locat ion: [facility]ify By: hina sanchez Enco unter DateTime : 08/25/20 17 03:45:00 PM Not Available Not Available Not Available hydrocodo ne 10 mg-acetam inophen 300 mg tablet take 1 tablet by oral route every 6 hours as needed 07/08 completed Prescrib ed Elsewher e: Yes Loca tion: [facility]ify By: mark mukherjee DateTime : [...] Elsewher e: No Locat ion: [facility]ify By: hina sanchez Enco unter DateTime : 07/08/20 19 02:30:00 PM Not Available Not Available Not Available Vitals Date Recorded Body height Body mass index (BMI) Body weight Systolic And Diastolic Provider Name and Address Organization Details Last Updated DateTime 02/11/2025 167.64 cm 27.6 kg/m2 24050.3 g 144/84 mm[Hg] Nichole Mcpherson [facility] 02/11/2025 16:03:18 Social History Question Answer Notes LastModified by Organizat ion Details LastModified Time Tobacco Smoking Status Current Every Day Smoker Nichole donohue, [facility] 02/11/2025 16:05:54 In The 14 Days Before Symptom Onset, Have You Had Close Contact With A Laboratory-confirm ed COVID-19 While That Case Was Ill? No [email or web address] Information n ot available 02/11/2025 In The 14 Days Before Symptom Onset, Have You Had Close Contact With A Person Who Is Under Investigation For COVID-19 While That Person Was Ill? No [email or web address] Information not available 02/11/2025 Have You Been To An Area Known To Be High Risk For COVID-19? No [email or web address] Information not available 02/11/2025 Sex: Unknown Functional Status None recorded. Mental Status None recorded. Family History Nothing Reported Notes:Father: Hypertension, High cholesterol, Cardiovascular disease Maternal aunt: Cancer, uterine, Cancer, cervical Maternal grandfather: Cancer, lung Mother: Hypertension, Asthma Medical History Condition Response Blood Transfusion N Dermatologic Disorders N Gestational Diabetes N Anxiety Disorder Y Autoimmune disease N Arthritis Y Polyps N Infertility N Acid Reflux (GERD) Y Cancer N Varicosities N Stroke N Neurologic/Epilepsy N Fibromyalgia N Headaches N Kidney Disease N Heart Problems N Kidney or Bladder Problems N Eating Disorder N Art (IVF or FET) N Hepatitis/Liver Disease N Urinary Tract Infection Y Asthma N Trauma/Violence N Thrombophilias N Allergies (Food, seasonal, environmental ) N Breast Cancer N Drug/Latex Allergies/Reactions Y Lung Disease N Defects or Inherited Disease N Breast Problem N Hematologic disorders N Anesthesia Complications N History of STI N Deep Vein Thrombosis N Polycystic ovary syndrome N History of abnormal pap N Endometriosis N High Cholesterol N Thyroid Problems N GI Problems N Anemia Y Psychiatric Illness N Ovarian Cancer N Diabetes N Pulmonary (TB, Asthma) N Eczema N Abuse/Domestic Violence N Depression/ depression Y Heart Disease N Pre-Eclampsia N Hypertension N Osteoporosis N Gynecological History Statement/Question Response Abnormal Pap [...] ICD10 Code Diagnosis IMO Codes Diagnosis Note [id number] [facility] [place] [address] [address] 02/11/2025 13:31:21 02/12/2025 13:59:37 Gynecologic examination 96569418 Z01.700 [id number] WWEpostmen opausalPap - done todaySTI screen - [...] estions have been answered. Screening mammography 24 612495 Z12.31 [id number] Screening for osteoporosis 120715592 Z13.820 831292 Health Concerns Section Related Observation LastModified by Organization Detai ls LastModified Time None Recorded Concern Status LastModified by Organization Details LastModified Time None Recorded Advance Directives Directive None Recorded Payers Insurance Date Sequence Insurance Name Policy Number Policy Calderon Covered Member ID Calderon Member ID Guarantor Name 03/25/2025 1 [place] [employer] [employer] [place] [employer] Jackie Alvarez [id number] Jackie Alvarez 02/11/2025 1 [facility] - DOS ON OR AFTER 21 (MEDICAID REPLACEMENT - HMO) Jackie Alvarez [id number] Jackie Alvarez 02/11/2025 1 [place] Jackie Alvarez [id number] Jackie Alvarez 02/11/2025 1 [place] Jackie Alvarez [id number] Jackie Alvarez 03/25/2025 2 [facility] (MEDICAID REPLACEMENT - HMO) Jackie Alvarez [id number] Jackie Alvarez 07/15/2025 2 [facility] Jackie Alvarez [id number] Jackie Alvarez Notes Date Note Type Note Provider Name and Address Organization Details Recorded Time 5 text/html 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 02/12/2025 10:20:26 OBGyn Episode Ob Episode Information Episode Created Date Number of Fetuses Patient Bloodtype Patient rh Status Prepregnancy Weight lbs Domestic Partner Domestic Partner Phone Father Name Teacher [employer] Status 02/12/20 25 1 CLOSED Fetus Data First Name Last Name Admitted to NICU Weight (g) Sex Living Outcome Pediatric Complications Fetus ID Race Codes Race Delivery Type F Full Term [id number] Vaginal Delivery Atilio Calculation Initial Atilio Date [...] Domestic Partner Domestic Partner Phone Father Name Teacher [employer] Status 02/12/20 25 1 CLOSED Fetus Data First Name Last Name Admitted to NICU Weight (g) Sex Living Outcome Pediatric Complications Fetus ID Race Codes Race Delivery Type 11541 Atilio Calculation Initial Atilio Date Initial Exam [...] Domestic Partner Domestic Partner Phone Father Name Teacher [employer] Status 02/12/20 25 1 CLOSED Fetus Data First Name Last Name Admitted to NICU Weight (g) Sex Living Outcome Pediatric Complications Fetus ID Race Codes Race Delivery Type F Full Term [id number] Vaginal Delivery Atilio Calculation Initial Atilio Date [...]
[2025-09-08 08:42] VITALS: BP 117/74; PULSE 57; RESP 18; TEMP 36.6; O2SAT 100
[2025-09-08 09:00] VITALS: BP 147/67; PULSE 59; RESP 10; O2SAT 97
[2025-09-08 09:05] VITALS: BP 135/70; PULSE 54; RESP 12; O2SAT 98
[2025-09-08] MEDS: BUPivacaine HCL 0.5% 10 ML AMP INFILTRATE (09:06)
[2025-09-08] MEDS: LIDOCAINE 1% PF INJ 5 ML VIAL INFILTRATE (09:06)
[2025-09-08 09:11] VITALS: BP 136/71; PULSE 52; RESP 13; O2SAT 97
[2025-09-08 09:22] VITALS: BP 113/71; PULSE 52; RESP 16; O2SAT 98
== END 2025-09-08 09:33 | disposition home or self-care (01) ==
PROVIDERS: PCP Family Medicine Adolescent Medicine; Visit Provider Anesthesiology Pain Medicine
PROC: (CPT 64493; principal; 2025-09-08 08:50)
DX: M47.816 Spondylosis without myelopathy or radiculopathy, lumbar region (principal)
CPT/HCPCS: 64493 ×2; 64494 ×2; 64495 ×2; 99199

== ENCOUNTER 2025-09-23 08:25 | Day surgery (SDC) | payer MEDICAID, SELFPAY ==
--- NOTE | ~2025-09-23 | XR_ITS ---
EXAM/PROCEDURE: XR fluoroscopy no charge HISTORY: DIAG/PROG KILO L3,L4,L5 MEDIAL BRANCH/DORSAL RAMI NERVE BLK COMPARISON: None available. TECHNIQUE: Fluoroscopic spot images for pain service. Fluoroscopy time: 79.4 seconds Dose: 11.14 mGy IMPRESSION: Fluoroscopic guided imaging. No radiologist present. See also procedure/operative notes for complete evaluation. Reviewed, dictated and finalized at location A. OGICAL E LOGGER IMPRESSION: Fluoroscopic guided imaging. No radiologist present. See also proce dure/operative notes for complete evaluation.
[2025-09-23 09:12] VITALS: BP 115/70; PULSE 72; RESP 16; TEMP 37.1; O2SAT 96
--- NOTE | 2025-09-23 09:42 | WPDHPUPDATE1 ---
History and Physical Update Update Date/Time: 09/23/25 09:42 History and Physical has been reviewed, including an updated exam of the patient. There are NO changes in the patient's condition. Risks, benefits, and alternatives have been discussed and questions answered. Patient agrees to proceed with procedure.
--- NOTE | 2025-09-23 09:43 | P.OP_ITS ---
Procedure Note - Detailed Date of Procedure 09/23/25 Pre-op Diagnosis Lumbosacral spondylosis, chronic low back pain Post-op Diagnosis Same Procedure Performed Diagnostic bilateral Lumbar Medial Branch/Dorsal Ramus Blocks at L3, L4, L5 T reating the bilateral L4-5, L5-S1 Facet Joints Under Fluoroscopic Guidance and with Contrast Control. (4 levels blocked). Surgeon Gurmeet Rodrigues MD Regulatory Product Manager None. Anesthesia Local Description of Procedure INFORMED CONSENT: Risks, benefits and alternatives to the procedure were discussed in detail with the patient who expressed explicit understanding and consent to proceed. Patient was informed verbally and in written form regarding the risks associated with the procedure including the low risk of serious infection, bleeding/bruising, allergic reaction, nerve or organ injury, paralysis, procedural site pain or discomfort, worsening pain and/or mobility, failure to treat and/or disfigurement. The patient expressed explicit understanding and consent to proceed. All materials required for the procedure were available prior to procedure start. Site and side were marked prior to procedure and confirmed in the presence of the patient. PROCEDURE IN DETAIL: The patient was brought to the procedural suite and placed in the prone position. Patient was made comfortable with use of pillows under the head/chest, hips and ankles. Skin overlying the injection site on the affected side(s) was prepared broadly with ChloraPrep applicator and draped in a sterile manner. Aseptic technique was used throughout. The endplates of the vertebral bodies at the site(s) of interest were aligned in the AP view. Ipsil ateral oblique angulation was utilized to optimize visualization of the intersection between the superior articulating process and transverse process at each target site. Local anesthesia was established by infiltration with approximately 5 mL of 1% lidocaine via a 1-1/2 inch 27-gauge needle. A 25-gauge 5.0 inch Quincke spinal needle was advanced until the needle tip contacted periosteum at the target site, right L3. Lateral view was utilized to confirm the appropriate placement of the needle tip just anterior to the facet line and superior to the pedicle. In the Lateral view, 0.25 mL of Omnipaque 300 contrast medium was injected after negative aspiration for CSF, blood or other bodily fluid, showing appropriate extra-articular spread of contrast without evidence of intravascular, foraminal or intrathecal placement. A 0.5 mL solution of 2.0% PF lidocaine was injected after negative repeat aspiration. Appropriate spread of the injectate was confirmed with washout of previously injected contrast. No parasthesias were elicited. Needle was removed completely intact without difficulty. The same exact procedure was repeated for all remaining levels on the ipsilateral side, right L4, L5 medial branches/dorsal ramus, modified as necessary to accommodate for the new target location with identical findings and results and no evidence of complication. The same exact procedure was repeated for all remaining levels on the contralateral side, left L3, L4, L5 medial branches/dorsal ramus, modified as necessary to accommodate for the new target location with identical findings and results and no evidence of complication. Images were saved and documented in the patient chart. Patient's skin was cleaned and sterile bandage applied. The patient tolerated the procedure well. The patient was transported to the recovery area in stable condition where they were observed for an appropriate amount of time prior to discharge, without evidence of complication. Patient was instructed on the appropriate completion of a pain diary over the next 12-24 hours. The patient was instructed to avoid excessive activity for the next 48 hours, including climbing and frequent use of stairs. Showers only for 48 hours. They were instructed not to drive or operate heavy machinery for 24 hours. They are to monitor for severe headaches, fevers, chills, night sweats, erythema/swelling at the site or any other signs of infection, bleeding/bruising, bowel or bladder changes as well as new pain, weakness or numbness in the upper or lower extremity. Should they notice these changes, they are instructed to call our office immediately or report directly to the nearest Emergency Department if no answer or if after posted office hours. COMPLICATIONS: None COMMENTS: None CONTRAST WASTED: 28.5mL Omnipaque 300. Complications No immediate complications Condition Stable Disposition Same day [facility] Billing Surgery - Charge Forward: Surgery Billing
[2025-09-23] MEDS: LIDOCAINE 2% PF LOCAL INJ 5 ML VIAL INFILTRATE (09:46)
[2025-09-23 09:52] VITALS: BP 113/69; PULSE 67; RESP 14; O2SAT 95
[2025-09-23 09:56] VITALS: BP 107/61; PULSE 61; RESP 12; O2SAT 95
[2025-09-23 09:59] VITALS: BP 107/60; PULSE 63; RESP 11; O2SAT 96
[2025-09-23 10:04] VITALS: BP 103/60; PULSE 91; RESP 18; O2SAT 94
[2025-09-23 10:15] VITALS: BP 98/53; PULSE 65; RESP 14; O2SAT 97
== END 2025-09-23 10:25 | disposition home or self-care (01) ==
PROVIDERS: PCP Family Medicine Adolescent Medicine; Visit Provider Anesthesiology Pain Medicine
PROC: (CPT 64493; principal; 2025-09-23 09:45)
DX: M47.817 Spondylosis without myelopathy or radiculopathy, lumbosacral region (principal)
CPT/HCPCS: 64493 ×2; 64494 ×2; 64495 ×2; 99199

== ENCOUNTER 2025-10-06 02:42 | Day surgery (SDC) | payer MEDICAID, SELFPAY ==
[2025-09-17 08:58] VITALS: BMI 29.9
[2025-10-06 13:30] VITALS: BP 108/69; PULSE 70; RESP 16; TEMP 36.1; O2SAT 95; BMI 30.9
[2025-10-06] MEDS: LACTATED RINGERS 1,000 ML 150 ML IV CONT (13:44)
--- NOTE | 2025-10-06 13:55 | PM.HPGS ---
History of Present Illness History of Present Illness Consent: Risks, benefits, and alternatives have been discussed and questions answered. Patient agrees to proceed with procedure. Chief complaint: GERD, Anemia, Narrative: Shahnaz Alvarez is a 65 year old female here for egd and colonoscopy, h/o nausea, loose stools. She is using suboxone (former drug use). Review of Systems Review of Systems: All systems reviewed & are unremarkable except as noted in HPI and below PMFSH Past Medical History Medical History (Updated 10/06/25 @ 13:56 by Kristofer Rob MD) Nausea Sacroiliitis Lumbar stenosis Lumbar spondylosis Lumbar radiculopathy Chronic back pain Left temporomandibular joint disorder, unspecified left TMJ erosions Restless leg syndrome Generalized anxiety disorder Major depressive disorder, recurrent, moderate GERD (gastroesophageal reflux disease) Insomnia, unspecified Surgical History Surgical History History of foot surgery right foot tendon repair History of tonsillectomy and adenoidectomy H/O total hysterectomy with bilateral salpingo-oophorectomy (BSO) (1998) Social History Social History Smoking status: Never smoker Second hand tobacco smoke exposure: Yes Alcohol intake: never Substance use: former Substance use type: former substance user Other substance usage details: Clean x10 months, fentanyl Lack of Transportation: No Lack of Food: Never True Current Housing: I Have Housing Concerned About Future Housing: No Difficulty Paying Gas/Electric Bills: No Difficulty Paying for Meds: No Currently Unemployed: No Education: Trade/Vocational Certificate Difficulty w/ Childcare or Family Care: No Living arrangements: with family Occupation/Education: unemployed Gender identity (if verbalized by the patient): Female Sexual Orientation (if Verbalized by the Patient): Straight or Heterosexual Spiritual care concerns: No Agree to blood products: Yes Meds Home Medications and Allergies Home Medications ?Medication ?Instructions ?Recorded ?Confirmed ?Type albuterol sulfate 90 mcg/actuation 2 inh inhalation Q4H PRN shortness 02/11/25 09/29/25 Rx aerosol inhaler (Ventolin HFA) of breath or wheezing #6.7 grams fluticasone propionate 50 1 spray intranasal DAILY #16 grams 02/11/25 10/06/25 Rx mcg/actuation nasal spray,suspension hydroxyzine pamoate 25 mg capsule 25 mg PO TID PRN anxiety 04/09/25 10/06/25 History prazosin 1 mg capsule 1 mg PO HS PRN insomnia 04/09/25 09/29/25 History quetiapine 200 mg tablet 200 mg PO HS 04/09/25 10/06/25 History sertraline 100 mg tablet 200 mg PO DAILY 04/09/25 09/29/25 History loratadine 10 mg tablet 10 mg PO DAILY #90 tabs 07/07/25 10/06/25 Rx ferrous sulfate 325 mg (65 mg 325 mg PO DAILY #90 tabs 07/09/25 09/29/25 Rx iron) tablet buprenorphine 8 mg-naloxone 2 mg 1 film sublingual TID 07/29/25 10/06/25 History sublingual film (Suboxone) terbinafine HCl 250 mg tablet 250 mg PO DAILY #90 tabs 09/07/25 10/06/25 Rx cyanocobalamin (vitamin B-12) 1,000 mcg PO DAILY #90 tabs 09/10/25 09/29/25 Rx 1,000 mcg tablet gabapentin 600 mg tablet 600 mg PO TID #90 tabs 09/10/25 10/06/25 Rx propranolol 60 mg tablet 60 mg PO Q12H #180 tabs 09/10/25 10/06/25 Rx loperamide 2 mg tablet 2 mg PO DAILY PRN loose stool 09/17/25 09/29/25 History bupropion HCl 300 mg 24 hr tablet, 300 mg PO DAILY 09/18/25 10/06/25 History extended release duloxetine 60 mg capsule,delayed 60 mg PO DAILY 09/18/25 10/06/25 History release prochlorperazine maleate 5 mg 5 mg PO BID PRN nausea and 09/20/25 10/06/25 Rx tablet vomiting #30 tabs Allergies Allergy/AdvReac Type Severity Reaction Status Date / Time Penicillins Allergy Unknown Rash Verified 10/06/25 13:24 Vital Signs Vital Signs - 24 hr 10/06/25 13:30 Temperature 97 F L Pulse Rate 70 Respiratory Rate 16 Blood Pressure 108/69 Pulse Oximetry 95 Oxygen Delivery Room Air Exam Const: General: comfortable and no acute distress HENMT: Face/Nose/Sinus: Normal nares present Eyes: General: appearance normal, both eyes and all related structures Neck: Neck: no JVD Resp: Auscultation: clear to auscultation bilaterally Cardio: Rate: regular rate Rhythm: regular rhythm GI: Inspection: non-distended GI Palp: Yes Soft to palpation Skin: General skin exam: normal color Neuro: General: gait normal Speech: normal speech Assessment and Plan Assessment and plan (1) Chronic diarrhea: Code(s): K52.9 - Noninfective gastroenteritis and colitis, unspecified Status: Acute Assessment and Plan: colonoscopy (2) Nausea: Code(s): R11.0 - Nausea Status: Acute Assessment and Plan: probably related to narcotic use egd (3) Controlled substance agreement signed: Onset Date: 04/2024 Code(s): 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
--- NOTE | 2025-10-06 14:03 | WPDANESEPPF ---
Anes - Initial Pre Proc Eval Procedure: Operation Date: 10/06/25 14:30 Proposed Procedures p EGD & Diagnostic Colonoscopy - Kristofer Rob MD Date/Time: 10/06/25 14:03 Surgeon: Kristofer Rob MD Pre Op Diagnosis: GERD, Anemia, Patient Data Age: 65 Gender: F Height: 1.68 m Weight: 86.8 kg Last Vital Signs Temp 36.1 C L 10/06/25 13:30 Pulse 70 10/06/25 13:30 Resp 16 10/06/25 13:30 BP 108/69 10/06/25 13:30 Pulse Ox 95 10/06/25 13:30 O2 Del Method Room Air 10/06/25 13:30 Allergies Allergy/AdvReac Type Severity Reaction Status Date / Time Penicillins Allergy Unknown Rash Verified 10/06/25 13:24 Home Medications ?Medication ?Instructions ?Recorded ?Confirmed ?Type albuterol sulfate 90 mcg/actuation 2 inh inhalation Q4H PRN shortness 02/11/25 09/29/25 Rx aerosol inhaler (Ventolin HFA) of breath or wheezing #6.7 grams fluticasone propionate 50 1 spray intranasal DAILY #16 grams 02/11/25 10/06/25 Rx mcg/actuation nasal spray,suspension hydroxyzine pamoate 25 mg capsule 25 mg PO TID PRN anxiety 04/09/25 10/06/25 History prazosin 1 mg capsule 1 mg PO HS PRN insomnia 04/09/25 09/29/25 History quetiapine 200 mg tablet 200 mg PO HS 04/09/25 10/06/25 History sertraline 100 mg tablet 200 mg PO DAILY 04/09/25 09/29/25 History loratadine 10 mg tablet 10 mg PO DAILY #90 tabs 07/07/25 10/06/25 Rx ferrous sulfate 325 mg (65 mg 325 mg PO DAILY #90 tabs 07/09/25 09/29/25 Rx iron) tablet buprenorphine 8 mg-naloxone 2 mg 1 film sublingual TID 07/29/25 10/06/25 History sublingual film (Suboxone) terbinafine HCl 250 mg tablet 250 mg PO DAILY #90 tabs 09/07/25 10/06/25 Rx cyanocobalamin (vitamin B-12) 1,000 mcg PO DAILY #90 tabs 09/10/25 09/29/25 Rx 1,000 mcg tablet gabapentin 600 mg tablet 600 mg PO TID #90 tabs 09/10/25 10/06/25 Rx propranolol 60 mg tablet 60 mg PO Q12H #180 tabs 09/10/25 10/06/25 Rx loperamide 2 mg tablet 2 mg PO DAILY PRN loose stool 09/17/25 09/29/25 History bupropion HCl 300 mg 24 hr tablet, 300 mg PO DAILY 09/18/25 10/06/25 History extended release duloxetine 60 mg capsule,delayed 60 mg PO DAILY 09/18/25 10/06/25 History release prochlorperazine maleate 5 mg 5 mg PO BID PRN nausea and 09/20/25 10/06/25 Rx tablet vomiting #30 tabs Patient hx anesthesia problems: none Family hx anesthesia problems: none Results Review: All pre-operative results and documents have been reviewed as part of the pre-operative evaluation. [facility] Past Medical History Medical History Nausea Sacroiliitis Lumbar stenosis Lumbar spondylosis Lumbar radiculopathy Chronic back pain Left temporomandibular joint disorder, unspecified left TMJ erosions Restless leg syndrome Generalized anxiety disorder Major depressive disorder, recurrent, moderate GERD (gastroesophageal reflux disease) Insomnia, unspecified Surgical History Surgical History History of foot surgery right foot tendon repair History of tonsillectomy and adenoidectomy H/O total hysterectomy with bilateral salpingo-oophorectomy (BSO) (1998) Social History Social History Smoking status: Never smoker Second hand tobacco smoke exposure: Yes Alcohol intake: never Substance use: former Substance use type: former substance user Other substance usage details: Clean x10 months, fentanyl Lack of Transportation: No Lack of Food: Never True Current Housing: I Have Housing Concerned About Future Housing: No Difficulty Paying Gas/Electric Bills: No Difficulty Paying for Meds: No Currently Unemployed: No Education: Trade/Vocational Certificate Difficulty w/ Childcare or Family Care: No Living arrangements: with family Occupation/Education: unemployed Gender identity (if verbalized by the patient): Female Sexual Orientation (if Verbalized by the Patient): Straight or Heterosexual Spiritual care concerns: No Agree to blood products: Yes Anes - Eval Final PreProcedure Day of Procedure 10/06/25 14:03 Patient weight: obese Heart: regular rate and rhythm Lungs: decreased breath sounds Airway: Mallampati scale class III Neurological: alert and oriented Last oral intake: >/= 8 hours ASA classification: III Emergent: no Anesthetic plan: proceed Anesthesia type and monitoring: general GIVS and standard monitoring Results Review: All pre-operative results and documents have been reviewed as part of the pre-operative evaluation. Informed Consent: The patient's anesthetic plan and its attendant risks and benefits were discussed with the patient/family/POA. Questions were solicited and answers provided to the satisfaction of the patient/family/POA.
--- NOTE | 2025-10-06 14:13 | S_PTH ---
PATIENT: Shahnaz Alvarez LOC: [facility] Pro#:[id number] AGE/SX: 65/F ROOM: RE10/06/[address]: Kristofer Rob MD : 1960 BED: DIS: 10/06/2025 SPEC #: [id number] RECD: 10/07/25 07:16 STATUS: GLENYS GRANT #: [id number] JADYN: 10/06/25 14:[address]: Kristofer Rob DEPT: [facility] Surgical RECD BY: Selena Reed ENTERED: 10/07/25 07:16 SP TYPE: Surgical OTHR DR: Keaton Booth MD Tissues: A - Small Bowel Bx B - Gastric Biopsy C - Colon Biopsy Procedures: Hematoxylin and Eosin Stain Gross and Microscopic Level 4
--- NOTE | 2025-10-06 14:15 | SUR.OPER ---
EGD ended at 141, colon began at 141.
[2025-10-06 14:28] VITALS: BP 93/48; PULSE 64; RESP 20; O2SAT 93
[2025-10-06 14:38] VITALS: BP 92/49; PULSE 62; RESP 18; O2SAT 97
[2025-10-06 14:48] VITALS: BP 121/73; PULSE 67; RESP 15; O2SAT 98
== END 2025-10-06 14:49 | disposition home or self-care (01) ==
PROVIDERS: PCP Family Medicine Adolescent Medicine; Referring Provider Nurse Practitioner Family; Visit Provider Internal Medicine Gastroenterology
PROC: 0DJ08ZZ Inspection of Upper Intestinal Tract, Via Natural or Artificial Opening Endoscopic (ICD-10-PCS; CPT 45378; principal; 2025-10-06 14:30)
DX: K29.70 Gastritis, unspecified, without bleeding (principal); K21.9 Gastro-esophageal reflux disease without esophagitis; D64.9 Anemia, unspecified; R19.7 Diarrhea, unspecified; K57.30 Diverticulosis of large intestine without perforation or abscess without bleeding; F11.90 Opioid use, unspecified, uncomplicated; E66.9 Obesity, unspecified; Z68.30 Body mass index [BMI] 30.0-30.9, adult
CPT/HCPCS: 45380; 43239; 88305; J2704; J7120